=== PATIENT | female | born 1980 | race Caucasian/White ===

== ENCOUNTER → 2017-02-13 | Outpatient (CLI) | payer MEDICAID ==
[~2017-02-13] MED LIST: CHOL10003; CLIN300C11 PO; CYCL10TA45 PO; CYCL10TA9; CYCL10TA9 PO; ESTR1TAB24 PO; HYDR-3720; HYDR-3730 PO; HYDR-623 PO; HYDR118S10 PO; HYDR200T46 PO; IBP800T PO; LOPE2TAB17 PO; METR500T PO; MTP100TCR; MULT-974 PO; NCT14P TD; ONDA4TAB11 PO; ONDAN4ODT PO; PNT40TEC PO; RIZA10TA20; SCR1T1 PO; SENN1TAB76 PO; SUCR1TAB36 PO; SUMA50TA2 PO; TOPI50TA2 PO; TRAM50TA2 PO; VALA100033 PO
--- NOTE | 2017-02-13 09:56 | Diagnostic Imaging Report ---
PROCEDURE: US Gallbladder. TECHNIQUE: Multiple real-time grayscale images were obtained over the right upper quadrant in various projections. INDICATION: Epigastric pain. FINDINGS: The pancreas is largely obscured. The liver demonstrates no focal lesion. Hepatopetal flow in the portal vein is demonstrated. The CBD is 2 mm in caliber. The gallbladder demonstrates no stones or wall thickening. No pericholecystic fluid. The sonographic Greenwood sign is reportedly negative. The right kidney is 9.7 cm in length with no hydronephrosis or focal lesion. No fluid collection in the upper right abdomen is seen. IMPRESSION: No gallstones or evidence of cholecystitis. Dictated by: Dictated on workstation # [id number]
== END ==
LOC: RAD 09:03
PROVIDERS: ATTEND Nurse Practitioner Family
DX: R10.11 Right upper quadrant pain (principal)
CPT/HCPCS: 76705

== ENCOUNTER → 2017-02-16 | Outpatient (CLI) | payer MEDICAID ==
[~2017-02-16] MED LIST changes: +CATHETER FLUSH 10 ML SYR IV PRN
--- NOTE | 2017-02-16 13:09 | Diagnostic Imaging Report ---
EXAMINATION: HIDA with EF measurements Indication: Abdominal pain TECHNIQUE: After the intravenous administration of 5.4 mCi of Tc 99m Choletec, imaging over the abdomen was obtained. This was followed by administration of Ensure orally to stimulate intrinsic CCK secretion, followed by continued imaging with ejection fraction measured. FINDINGS: There is homogeneous uptake in the liver with prompt bile duct and gallbladder filling seen. Bowel activity is seen at 45 minutes. Based on further imaging and gallbladder area of interest activity measurements after the administration of Ensure, the gallbladder ejection fraction is estimated at 40.7%. IMPRESSION: 1. Normal hepatobiliary uptake and Gallbladder filling. 2. Borderline gallbladder ejection fraction. Correlate clinically. Dictated by: Dictated on workstation # [id number]
== END ==
LOC: CARD 09:42
PROVIDERS: ATTEND Nurse Practitioner Family
DX: R10.11 Right upper quadrant pain (principal)
CPT/HCPCS: 78227

== ENCOUNTER 2017-02-17 09:13 | Outpatient (CLI) | payer MEDICAID ==
[~2017-02-17] VITALS: Ht 160 cm; Wt 68.0 kg
[~2017-02-17 09:13] MED LIST changes: -CATHETER FLUSH 10 ML SYR IV PRN; -HYDR-3730 PO; -SUCR1TAB36 PO; -TRAM50TA2 PO
[2017-02-17] MEDS ORDERED: SUCR1TAB36 PO (12:20)
[2017-02-17] MEDS ORDERED: TRAM50TA2 PO (12:20)
== END 2017-02-17 12:31 ==
LOC: PREOP 09:13
PROVIDERS: ATTEND Surgery Pediatric Surgery
DX: Z01.818 Encounter for other preprocedural examination (principal); K82.8 Other specified diseases of gallbladder; K21.9 Gastro-esophageal reflux disease without esophagitis

== ENCOUNTER 2017-02-20 12:27 | Day surgery (SDC) | payer MEDICAID ==
[~2017-02-20] VITALS: Ht 160 cm; Wt 68.0 kg
[2017-02-20] VITALS (7 sets, daily range): BP systolic 105–112; BP diastolic 73–84
[~2017-02-20 12:27] MED LIST changes: +SUCR1TAB36 PO; +TRAM50TA2 PO
[2017-02-20] MEDS ORDERED: ceFAZolin 1 GM/NS 50 ML IVPB IV ONE ×2 (13:00)
[2017-02-20] MEDS ORDERED: FAMOTIDINE 20MG/2ML IV (PEPCID) IV ONE (13:00)
[2017-02-20] MEDS ORDERED: ONDANSETRON 4 MG/2 ML (SDV) Z0FRAN IV ONE (13:00)
[2017-02-20] MEDS ORDERED: CATHETER FLUSH 10 ML SYR IV PRN (13:00)
[2017-02-20] MEDS ORDERED: BUP/EPI 0.5% 1:200,000 (SENSORCAINE) 30 ML VIAL ONE (13:01)
[2017-02-20] MEDS: LACTATED RINGERS 1,000 ML IV PRN ×2 (13:24→15:26)
--- NOTE | 2017-02-20 13:49 | Progress Note-Pre Operative ---
Pre-Operative Progress Note H&P Reviewed The H&P was reviewed, patient examined and no changes noted. Date H&P Reviewed: February 20, 2017 Time H&P Reviewed: 13:49 Pre-Operative Diagnosis: Biliary Dyskinesia, Reflux VICKY PALMER APRN February 20, 2017 1:49 pm
[2017-02-20] MEDS ORDERED: MIDAZOLAM 2 MG/2 ML (VERSED) VIAL ONE (13:54)
[2017-02-20] MEDS ORDERED: SEVOFLURANE (ULTANE) 15 ML INHAL SOLN ONE (13:54)
[2017-02-20] MEDS ORDERED: proPOfol 200 MG/20 ML (DIPRIVAN) VIAL IV ONE (13:54)
[2017-02-20] MEDS ORDERED: LACTATED RINGERS 1,000 ML IV ONE ×2 (13:54→15:49)
[2017-02-20] MEDS ORDERED: ROCURONIUM 50 MG/5 ML (ZEMURON) VIAL IV ONE (13:54)
[2017-02-20] MEDS ORDERED: LIDOCAINE PF 2% 10 ML (XYLOCAINE) AMP ONE (13:54)
[2017-02-20] MEDS ORDERED: fentaNYL INJECTION 250 MCG/5 ML AMP ONE (13:54)
[2017-02-20] MEDS ORDERED: HYDROcodone/APAP 5 MG/325 MG (LORTAB) TAB PO ONE (14:00)
[2017-02-20] MEDS ORDERED: ACETAMINOPHEN 325 MG TABLET/CAPLET (TYLENOL) PO PRN (14:00)
[2017-02-20] MEDS ORDERED: morphine INJ 10 MG/ML 1ML (SYR OR VIAL) IVP PRN (14:00)
[2017-02-20] MEDS ORDERED: ONDANSETRON 4 MG/2 ML (SDV) Z0FRAN IVP PRN (14:00)
[2017-02-20] MEDS ORDERED: DEXAMETHASONE PF 10 MG/ML (DECADRON) VIAL ONE (14:01)
[2017-02-20] MEDS ORDERED: GLYCOPYRROLATE 0.2 MG/ML (ROBINUL) 2 ML VIAL ONE (15:49)
[2017-02-20] MEDS ORDERED: KETOROLAC 30 MG/ML VIAL ONE (15:49)
[2017-02-20] MEDS ORDERED: NEOSTIGMINE (BLOXIVERZ ) 1 MG/1ML 10 ML VIAL ONE (15:49)
--- NOTE | 2017-02-20 16:13 | Progress Note-Post Operative ---
Post-Operative Progess Note Surgeon (s)/Computer Systems Architect (s) Surgeon CHARLOTTE BLANCHARD MD Computer Systems Architect: vladislav haji BONDED STRUCTURES REPAIRER Pre-Operative Diagnosis Biliary Dyskinesia, Reflux Post-Operative Diagnosis symptomatic biliary dyskinesia, reflux esophagitis(class B), small HH(2.5cm), moderate gastritis. Procedure & Operative Findings Date of Procedure 02/20/17 Procedure Preformed/Findings EGD with bx. Laparoscopic cholecystectomy Anesthesia Type GET Estimated Blood Loss Estimated blood loss (mL): minimal Specimens/Packing Specimens Removed gallbladder, GE jxn, antrum. Packing: none CHARLOTTE BLANCHARD MD February 20, 2017 16:13
[2017-02-20] MEDS ORDERED: HYDR-3730 PO (16:15)
--- NOTE | 2017-02-20 16:16 | Discharge Inst-Surgical ---
D/C Lap Instructions-KIDTico New, Converted, or Re-Newed RX: RX on Chart Follow Up Appt in 2 weeks Activity as tolerated Regular Diet Symptoms to Report: Fever over 101 degree F, Nausea/Vomiting Infection Signs and Symptoms to report: Increased redness, Foul odor of wound, Increased drainage Bathing instructions: May shower Operative Area Clean/Dry; Keep incision clean/dry If any problems/questions: Contact your physician or go to Emergency Room CHARLOTTE BLANCHARD MD February 20, 2017 16:16
[2017-02-20] MEDS: morphine INJ 10 MG/ML 1ML (SYR OR VIAL) IVP PRN ×2 (16:27→16:35)
[2017-02-20] MEDS ORDERED: fentaNYL INJECTION 100 MCG/2 ML AMP IVP PRN (16:30)
[2017-02-20] MEDS ORDERED: HYDROmorphone (DILAUDID) 2 MG/ML VIAL IVP PRN (16:30)
[2017-02-20] MEDS: HYDROcodone/APAP 5 MG/325 MG (LORTAB) TAB PO PRN (23:09)
[2017-02-21] MEDS: HYDROcodone/APAP 5 MG/325 MG (LORTAB) TAB PO PRN ×2 (03:18→07:39)
[2017-02-21 04:00] VITALS: BP 103/59
--- NOTE | 2017-02-21 05:27 | OPERATIVE REPORT ---
DATE OF SERVICE: 02/20/2017 PREOPERATIVE DIAGNOSES: Symptomatic biliary dyskinesia, reflux, history of gastric ulcers. POSTOPERATIVE DIAGNOSES: Symptomatic biliary dyskinesia, reflux esophagitis class B, small hiatal hernia 2.5 cm in size, moderate gastritis. PROCEDURE: EGD with biopsy, laparoscopic cholecystectomy. SURGEON: Dr. Blanchard. STOVE INSTALLER: Alpesh Leavitt APRN. ANESTHESIA: General endotracheal. ESTIMATED BLOOD LOSS: Minimal. FINDINGS: Reflux esophagitis class B, small hiatal hernia 2.5 cm in size, moderate gastritis. There were no ulcers, polyps or any neoplasms identified. Mild chronic gallbladder wall inflammation. DISPOSITION: The patient tolerated the procedure well. INDICATIONS: The patient is a 36-year-old female who was referred over to us for abdominal pain and dysphagia. She states that she has had a pain in the right upper abdominal quadrant with radiation towards the back, usually after meals. She also has noticed increased symptoms of reflux. She reports that she has had epigastric crampy pain in the past and has undergone EGDs before in the past, with the last one done in 2012 where she was found to have gastric ulcers. An ultrasound was also performed which did not show any gallstones; however, she did have a HIDA scan which did show an ejection fraction of approximately 40%; however, after the administration of Kinevac analogue, she did have a severe reproduction of symptoms consistent with a symptomatic biliary dyskinesia. DESCRIPTION OF PROCEDURE: The patient was brought to the operating room, laid supine on the table. After adequate IV pain and sedative medications and general endotracheal intubation, the abdomen was prepped and draped in standard surgical fashion. Marcaine 0.5% with epinephrine was used to anesthetize the overlying skin in the left upper abdominal quadrant and a small transverse skin incision made using a #15 blade. A 0-silk suture was applied to the medial aspect of the incision for retraction and the Veress needle inserted with a low opening pressure of 0 mmHg. The abdomen was then insufflated to 15 mmHg pressure. The Veress needle was removed and a 5 mm Xcel trocar placed followed by a 5 mm 45-degree angle laparoscope visualizing the peritoneal cavity. A 4-quadrant abdominal exploration was performed. There was mild chronic gallbladder wall irritation. What was visualized of the liver, omentum, small bowel and stomach appeared normal. Under direct visualization, we then proceeded to place a supraumbilical 10-mm port after the skin and peritoneum were anesthetized using 0.5% Marcaine with epinephrine and a transverse skin incision made using a #15 blade. In a similar manner, a right upper abdominal quadrant 5 mm port was placed. The fundus of the gallbladder was then retracted anteriorly and superiorly and the patient was then placed in reverse Trendelenburg position as well as plane right side up, left side down. The hepatoduodenal ligament was then opened using blunt dissection as well as electrocautery on the hook instrument. The entire critical view of safety was identified including the triangle of Calot as well as the cystic duct and artery and the liver behind the proximal gallbladder. A timeout was then taken and the cystic duct and artery were then clipped proximally and distally and cut with EndoShears. The gallbladder was then dissected off of the liver bed using cautery on the hook instrument with visualization of good hemostasis as well as no leaking ducts of Luschka. The gallbladder was removed through the 10 mm port site using an EndoCatch bag. The 10-mm port site, fascia and peritoneum were then closed under direct visualization using a Joni-Mor device and a 0-Vicryl suture. The abdomen was desufflated and the remaining ports were removed. All skin incisions were closed using 4-0 Monocryl running subcuticular sutures. Wounds were then cleaned and covered with Dermabond. The patient tolerated this portion of the procedure well. She may proceed with all normal activities; however, refrain from heavy lifting and exertion for the next 2 weeks. We will have her follow up in the office to reevaluate her wounds. Under the same general endotracheal anesthesia, we then proceeded with the EGD portion. The mouthpiece was applied. The endoscope was placed in the mouth, visualizing the pharynx and hypopharyngeal region. The endotracheal tube was going through the vocal cords. The endoscope was then gently intubated at the esophageal opening and esophagus was insufflated. The endoscope was then advanced to the first, second and third portions of the esophagus. At the level of the GE junction, a reflux esophagitis class B was identified. There were no ulcers or strictures identified in this region. A biopsy was taken with forceps with visualization of good hemostasis. The endoscope was then easily advanced in the stomach and then endoscope retroflexed, visualizing a small hiatal hernia approximately 2.5 cm in size. A moderate gastritis was also noted towards the stomach antrum. There were no formal ulcers, polyps or any neoplasms identified. A biopsy was taken of the stomach antrum with forceps with visualization of good hemostasis. The endoscope was then advanced to the pylorus and the first and second portions of the duodenum, which appeared normal. The endoscope was then slowly withdrawn taking a second look and suctioning all residual air with no additional findings. The patient tolerated the procedure well. We will have her continue with medical management for peptic ulcer disease as well as reflux esophagitis and hiatal hernia with the necessary lifestyle and diet accommodation including small and more frequent meals, avoidance of eating at night as well as head elevation while laying supine. She also needs to avoid caffeinated beverages, spicy, greasy and acidic foods. We will also have her continue with Protonix 40 mg daily for the next 3 months. Job ID: [id number] DocumentID: [id number] Dictated Date: 02/20/2017 16:23:50 Rn Cvicu Date: 02/21/2017 05:02:14 Dictated By: CHARLOTTE BLANCHARD MD
[2017-02-21 08:00] VITALS: BP 131/58
== END 2017-02-21 09:55 | disposition home or self-care (01) ==
LOC: SDC 12:27 → 4TH 19:20 → SDC 02-21 09:55
PROVIDERS: ATTEND Surgery Pediatric Surgery
DX: K82.4 Cholesterolosis of gallbladder (principal); K21.0 Gastro-esophageal reflux disease with esophagitis; K44.9 Diaphragmatic hernia without obstruction or gangrene; K29.70 Gastritis, unspecified, without bleeding; Z11.2 Encounter for screening for other bacterial diseases; M32.9 Systemic lupus erythematosus, unspecified; M79.1 Myalgia; G40.909 Epilepsy, unspecified, not intractable, without status epilepticus; F17.210 Nicotine dependence, cigarettes, uncomplicated; Z79.899 Other long term (current) drug therapy
CPT/HCPCS: 87081; 88304; 88305; 94664

== ENCOUNTER 2017-06-14 18:31 | Emergency (ER) | payer MEDICAID ==
[~2017-06-14] VITALS: Ht 167.6 cm; Wt 77.1 kg
[~2017-06-14 18:31] MED LIST changes: +HYDR-3730 PO
[2017-06-14] MEDS ORDERED: LACTATED RINGERS 1,000 ML IV ONE (19:11)
[2017-06-14] MEDS ORDERED: ONDANSETRON 4 MG/2 ML (SDV) Z0FRAN IVP ONE ×2 (19:15→20:45)
[2017-06-14 19:16] LABS: BILIRUBIN,URINE NEGATIVE (NEGATIVE); KETONES,URINE NEGATIVE (NEGATIVE); LEUKOCYTE ESTERASE ,URINE 2+ (NEGATIVE); NITRITE,URINE NEGATIVE (NEGATIVE); PH,URINE 7 (5-9); PROTEIN,URINE NEGATIVE (NEGATIVE); UROBILINOGEN,URINE NORMAL (NORMAL)
[2017-06-14 19:29] LABS: BASOPHILS # (AUTO) 0.1 10^3/uL (0.0-0.1); BASOPHILS % (AUTO) 1 % (0-10); EOSINOPHILS # (AUTO) 0.2 10^3/uL (0.0-0.3); EOSINOPHILS % (AUTO) 3 % (0-10); LYMPHOCYTES # (AUTO) 3.1 X 10^3 (1.0-4.0); LYMPHOCYTES % (AUTO) 36 % (12-44); MEAN CORPUSCULAR HEMOGLOBIN 30 PG (25-34); MEAN CORPUSCULAR HGB CONC 33 G/DL (32-36); MEAN CORPUSCULAR VOLUME 90 FL (80-99); MEAN PLATELET VOLUME 11.6 FL (7.4-10.4); MONOCYTES # (AUTO) 0.6 X 10^3 (0.0-1.0); MONOCYTES % (AUTO) 8 % (0-12); NEUTROPHILS # (AUTO) 4.6 X 10^3 (1.8-7.8); NEUTROPHILS % (AUTO) 53 % (42-75); PLATELET COUNT 209 10^3/uL (130-400); RED CELL DISTRIBUTION WIDTH 12.7 % (10.0-14.5); WHITE BLOOD COUNT 8.6 10^3/uL (4.3-11.0)
[2017-06-14 19:49] LABS: ALANINE AMINOTRANSFERASE 15 U/L (0-55); ALBUMIN 4.1 GM/DL (3.2-4.5); AMYLASE 97 U/L (25-125); ANION GAP 13 MMOL/L (5-14); ASPARTATE AMINO TRANSFERASE 18 U/L (5-34); BILIRUBIN,TOTAL 0.2 MG/DL (0.1-1.0); BLOOD UREA NITROGEN 18 MG/DL (7-18); BUN/CREATININE RATIO 22; CARBON DIOXIDE 24 MMOL/L (21-32); CHLORIDE 108 MMOL/L (98-107); CREATININE SERUM 0.81 MG/DL (0.60-1.30); GFR ESTIMATED > 60; GLUCOSE 109 MG/DL (70-105); LIPASE 34 U/L (8-78); POTASSIUM 3.4 MMOL/L (3.6-5.0); SODIUM 145 MMOL/L (135-145); TOTAL PROTEIN 6.9 GM/DL (6.4-8.2)
--- NOTE | 2017-06-14 19:51 | Diagnostic Imaging Report ---
PROCEDURE: CT urinary tract, rule out kidney stone. TECHNIQUE: Multiple contiguous axial images were obtained through the abdomen and pelvis without the use of intravenous contrast. INDICATION: Abdominal pain with nausea and emesis. COMPARISON is made to a study of 04/24/2013. FINDINGS: Unenhanced images of the liver and spleen reveal no focal abnormality. There is no biliary ductal dilatation. The gallbladder is surgically absent. No pancreatic or adrenal gland abnormality is identified. Evaluation of the kidneys is limited without intravenous contrast, however, there is no evidence of mass, hydronephrosis or stone. There is no evidence of localized inflammation in the abdomen or pelvis. The uterus and appendix are not visualized compatible with previous surgery. There is no evidence of free fluid or abscess. IMPRESSION: Stable postoperative findings without acute abnormality or adverse change detected. Dictated by: Dictated on workstation # [id number]
--- NOTE | 2017-06-14 20:08 | Diagnostic Imaging Report ---
INDICATION: Abdominal pain with nausea and bloating. EXAM: A single view of the chest is obtained with AP and lateral views of the abdomen. FINDINGS: The lungs are clear, bilaterally. There is mild to moderate amount of stool throughout the colon. No free intraperitoneal gas or pneumatosis is identified. There are surgical clips in the right upper quadrant of the abdomen and bilaterally in the pelvis. IMPRESSION: Mild to moderate amount of stool in the colon without acute abnormality identified. Dictated by: Dictated on workstation # [id number]
[2017-06-14] MEDS ORDERED: BISACODYL 10 MG SUPP (DULCOLAX) PR ONE ×2 (20:45→22:00)
[2017-06-14] MEDS ORDERED: DICYCLOMINE 10 MG/ML (BENTYL) 2 ML AMP IM ONE (20:45)
[2017-06-14] MEDS ORDERED: HYOSCYAMINE 0.125 MG (LEVSIN) TAB PO ONE (20:45)
[2017-06-14] MEDS ORDERED: RX-HYOSCYAMINE 0.125 MG SL (LEVSIN) PPK#6 SL STA (23:09)
[2017-06-14] MEDS ORDERED: RX-ONDANSETRON 4 MG ODT (ZOFRAN) PPK #4 PO STA (23:09)
[2017-06-14] MEDS ORDERED: RX-DICYCLOMINE 10 MG (BENTYL) CAP PPK#4 PO STA (23:09)
--- NOTE | 2017-06-14 23:15 | ED GI ---
General Chief Complaint: Abdominal/GI Problems Stated Complaint: ABDOMINAL PAIN,CONSTIPATION,VOMITING FECES Nursing Triage Note: Patient advises abdominal pain began monday evening and has become progressively worse. She advises that she has not had a bowel movement since and has a hx. of bowel obstructions. Sepsis Screen: No Definite Risk Source of Information: Patient Exam Limitations: No Limitations History of Present Illness Time Seen By Provider: 19:12 Initial Comments PT ARRIVES VIA POV FROM HOME C/O CONSTIPATION--LAST BM WAS Monday06/09/17 BEGAN HAVING GENERALIZED ABDOMINAL PAIN/CRAMPING ON Monday06/11/17 PT HAS HAD NAUSEA AND VOMITING SINCE MONDAY WELL, STATES SHE CANNOT EAT OR DRINK ANYTHING SINCE THEN IT CAUSES HER TO HAVE NAUSEA/VOMITING STATES SHE THINKS SHE IS VOMITING FECES NO FEVER NO PROBLEMS URINATING PT HAS HISTORY OF IBS AND CONSTIPATION, AND HAS ZOFRAN WELL COLACE, BUT HAS NOT TAKEN ANY, AND DOES NOT TAKE ANYTHING FOR CONSTIPATION ON A DAILY BASIS HAS NOT TRIED SUPPOSITORIES OR ENEMAS EVER. HAS NOT SOUGHT CARE UNTIL TODAY SYMPTOMS NO DIFFERENT TODAY PCP: DR. SMITH Allergies and Home Medications Allergies Coded Allergies: Iodinated Contrast- Oral and IV Dye (Verified Allergy, Severe, ANAPHYLAXIS , 06/14/17) codeine (Unverified Allergy, Unknown, 06/14/17) latex (Verified Allergy, Unknown, 06/14/17) meperidine HCl (Verified Allergy, Unknown, 06/14/17) Home Medications Dicyclomine HCl 10 Mg Capsule, 10-20 MG PO Q6H PRN for ABDOMINAL PAIN, #15 Prescribed by: AVELINO MARQUES on 06/14/17 2316 Hydrocodone/Acetaminophen 1 Each Tablet, 1-2 EACH PO Q4H, #35 Prescribed by: CHARLOTET BLANCHARD on 02/20/17 1615 Hyoscyamine Sulfate 0.125 Mg Tab.subl, 1-2 TAB SL Q4H, #15 Prescribed by: AVELINO MARQUES on 06/14/17 2316 Ondansetron 4 Mg Tab.rapdis, 4 MG PO Q4H, #10 Prescribed by: AVELINO MARQUES on 06/14/17 2316 Pantoprazole Sodium 40 Mg Tablet.dr, 40 MG PO BID, (Reported) Sucralfate 1 Gm Tablet, 1 GM PO ACHS, (Reported) Tramadol HCl 50 Mg Tablet, 50 MG PO Q6H PRN for PAIN-MILD, (Reported) Review of Systems Constitutional: no symptoms reported, No chills, No diaphoresis, No dizziness, No fever Respiratory: No Symptoms Reported Gastrointestinal: See HPI, Abdominal Pain, Constipated, Nausea, Poor Appetite, Poor Fluid Intake, Denies Rectal Bleeding, Vomiting Genitourinary: No Symptoms Reported Musculoskeletal: no symptoms reported Skin: no symptoms reported Psychiatric/Neurological: No Symptoms Reported Endocrine: No Symptoms Reported Hematologic/Lymphatic: No Symptoms Reported Past Ilhlezo-Rciydu-Kgdkhp Hx Patient Social History Alcohol Use: Rarely Uses Recreational Drug Use: No Smoking Status: Current Everyday Smoker (1/2 PPD) Type Used: Cigarettes Recent Foreign Travel: No Contact w/Someone Who Travel: No Recent Infectious Disease Expo: No Recent Hopitalizations: No Physical Abuse: No Sexual Abuse: No Immunizations Up To Date Tetanus Booster (TDap): More than 5yrs Date of Pneumonia Vaccine: Nov 16, 2010 Date of Influenza Vaccine: Oct 19, 2013 Seasonal Allergies Seasonal Allergies: Yes Surgeries History of Surgeries: Yes (EGD X 3; LAPAROSCOPIES WITH ABLATION OF ENDOMETRIOSIS X 3; HYST/BSO) Surgeries: Appendectomy, Gallbladder, Hysterectomy Respiratory History of Respiratory Disorde: Yes Respiratory Disorders: Pneumonia, Chronic Bronchitis Cardiovascular History of Cardiac Disorders: Yes (PT STATES SHE HAD VA AT AGE 28, NO CARDIAC CATH/STRESS TEST AND LEFT AMA AND NEVER FOLLOWED UP WITH ANYONE. 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 Genitourinary History of Genitourinary Disor: Yes Genitourinary Disorders: Kidney Stones, UTI-Chronic Gastrointestinal History of Gastrointestinal Di: Yes Gastrointestinal Disorders: Gastroesophageal Reflux, Chronic Constipation, Chronic Diarrhea, Ulcer, Gall Bladder Disease, Irritable Bowel Musculoskeletal History of Musculoskeletal Dis: Yes Musculoskeletal Disorders: Arthritis, Fibromyalgia, Chronic Back Pain Endocrine History of Endocrine Disorders: Yes Endocrine Disorders: Lupus HEENT History of HEENT Disorders: No Loss of Vision: Denies Hearing Impairment: Denies Cancer History of Cancer: No Psychosocial History of Psychiatric Problem: Yes Behavioral Health Disorders: Depression Suicide Risk Score: 0 Integumentary History of Skin or Integumenta: No Blood Transfusions History of Blood Disorders: No Family Medical History Significant Family History: Heart Disease Family Medial History: Alcoholism 03 MOTHER 09 BROTHER Chest pain 03 FATHER Congestive heart failure 03 FATHER Family history: Allergy 09 BROTHER boys daughter Family history: Arthritis 09 SISTER boys Family history: Asthma 03 MOTHER 09 BROTHER 09 BROTHER boys Family history: Diabetes mellitus 03 MOTHER Family history: Gastrointestinal disease 03 FATHER Family history: Hypertension 03 FATHER Family history: Thyroid disorder 03 MOTHER Headache 03 MOTHER boys daughter Hearing loss daughter History of - anemia daughter History of drug abuse 03 FATHER 09 BROTHER 09 BROTHER Kidney disease 03 FATHER No Family History of: Abdominal aortic aneurysm Hancock's disease Aphasia Cancer Cancer of colon Cataract Congenital heart disease Cystic fibrosis Dementia Dysphagia Family history: Alzheimer's disease Family history: Breast disease Family history: Cardiovascular disease Family history: Coronary thrombosis Family history: Glaucoma Family history: Osteoporosis Heart disease Hereditary disease History of - disorder History of - respiratory disease Human immunodeficiency virus (HIV) seropositivity Hypercholesterolemia Infertile Malignant neoplasm of lung Myocardial infarction Parkinson's disease Prostate cancer Psychotic disorder Seizure disorder Stroke Tuberculosis Visual impairment Physical Exam Vital Signs VS - Last 72 Hours, by Label 06/14/17 06/14/17 19:32 23:33 Temp 98.7 Pulse 88 87 Resp 14 16 B/P (MAP) 103/64 Pulse Ox 98 98 O2 Delivery Room Air Capillary Refill : Less Than 3 Seconds General Appearance: WD/WN, no apparent distress HEENT: PERRL/EOMI, normal ENT inspection, other (ORAL MUCOSA MOIST) Neck: normal inspection Respiratory: normal breath sounds, no respiratory distress Cardiovascular: regular rate, rhythm Gastrointestinal: soft, no organomegaly, no pulsatile mass, abnormal bowel sounds (HYPERACTIVE), No distended, No guarding, No rebound, tenderness ( DIFFUSE TENDERNESS, WORSE IN EPIGASTRIC, LUQ AND LEFT MID AND LOWER ABDOMEN), No hernia, No mass Extremities: normal inspection, normal capillary refill Back: no CVA tenderness 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, no motor/sensory deficits, alert, oriented x 3 Skin: normal color, warm/dry Progress/Results/Core Measures Results/Orders Lab Results Laboratory Tests Test 06/14/17 19:12 06/14/17 19:23 Range/Units Urine Color YELLOW Urine Clarity CLEAR Urine pH 7 5-9 Urine Specific Mobile 1.015 L 1.016-1.022 Urine Protein NEGATIVE NEGATIVE Urine Glucose (UA) NEGATIVE NEGATIVE Urine Ketones NEGATIVE NEGATIVE Urine Nitrite NEGATIVE NEGATIVE Urine Bilirubin NEGATIVE NEGATIVE Urine Urobilinogen NORMAL NORMAL MG/DL Urine Leukocyte Esterase 2+ H NEGATIVE Urine RBC (Auto) NEGATIVE NEGATIVE Urine RBC NONE /HPF Urine WBC 2-5 /HPF Urine Squamous Epithelial Cells 5-10 /HPF Urine Crystals NONE /LPF Urine Bacteria NEGATIVE /HPF Urine Casts NONE /LPF Urine Mucus NEGATIVE /LPF Urine Culture Indicated NO White Blood Count 8.6 4.3-11.0 10^3/uL Red Blood Count 4.80 4.35-5.85 10^6/uL Hemoglobin 14.2 11.5-16.0 G/DL Hematocrit 43 35-52 % Mean Corpuscular Volume 90 80-99 FL Mean Corpuscular Hemoglobin 30 25-34 PG Mean Corpuscular Hemoglobin Concent 33 32-36 G/DL Red Cell Distribution Width 12.7 10.0-14.5 % Platelet Count 209 130-400 10^3/uL Mean Platelet Volume 11.6 H 7.4-10.4 FL Neutrophils (%) (Auto) 53 42-75 % Lymphocytes (%) (Auto) 36 12-44 % Monocytes (%) (Auto) 8 0-12 % Eosinophils (%) (Auto) 3 0-10 % Basophils (%) (Auto) 1 0-10 % Neutrophils # (Auto) 4.6 1.8-7.8 X 10^3 Lymphocytes # (Auto) 3.1 1.0-4.0 X 10^3 Monocytes # (Auto) 0.6 0.0-1.0 X 10^3 Eosinophils # (Auto) 0.2 0.0-0.3 10^3/uL Basophils # (Auto) 0.1 0.0-0.1 10^3/uL Sodium Level 145 135-145 MMOL/L Potassium Level 3.4 L 3.6-5.0 MMOL/L Chloride Level 108 H 98-107 MMOL/L Carbon Dioxide Level 24 21-32 MMOL/L Anion Gap 13 5-14 MMOL/L Blood Urea Nitrogen 18 7-18 MG/DL Creatinine 0.81 0.60-1.30 MG/DL Estimat Glomerular Filtration Rate > 60 BUN/Creatinine Ratio 22 Glucose Level 109 H 70-105 MG/DL Calcium Level 9.0 8.5-10.1 MG/DL Total Bilirubin 0.2 0.1-1.0 MG/DL Aspartate Amino Transf (AST/SGOT) 18 5-34 U/L Alanine Aminotransferase (ALT/SGPT) 15 0-55 U/L Alkaline Phosphatase 67 40-136 U/L Total Protein 6.9 6.4-8.2 GM/DL Albumin 4.1 3.2-4.5 GM/DL Amylase Level 97 25-125 U/L Lipase 34 8-78 U/L My Orders Orders - AVELINO MARQUES DO Saline Lock/Iv-Start (06/14/17 19:11) Urine Bedside (06/14/17 19:11) Amylase (06/14/17 19:11) Cbc With Automated Diff (06/14/17 19:11) Comprehensive Metabolic Panel (06/14/17 19:11) Lipase (06/14/17 19:11) Ua Culture If Indicated (06/14/17 19:11) Ondansetron Injection (Zofran Injectio (06/14/17 19:15) Saline Lock/Iv-Start (06/14/17 19:11) Lactated Ringers (Lr 1000 Ml Iv Solution (06/14/17 19:11) Ct Abd/Pelvis Wo(Kidney Stone) (06/14/17 19:28) Acute Abd Series (06/14/17 19:28) Ondansetron Injection (Zofran Injectio (06/14/17 20:45) Dicyclomine Injection (Bentyl Injection) (06/14/17 20:45) Hyoscyamine Sl Tablet (Levsin Sl Tablet) (06/14/17 20:45) Bisacodyl Suppository (Dulcolax Supposit (06/14/17 20:45) Bisacodyl Suppository (Dulcolax Supposit (06/14/17 22:00) Rx-Dicyclomine Capsule (Rx-Bentyl Capsul (06/14/17 23:09) Rx-Ondansetron Po (Rx-Zofran Po) (06/14/17 23:09) Rx-Hyoscyamine Tab (Rx-Levsin Sl) (06/14/17 23:09) Medications Given in ED Current Medications Medications Dose Ordered Sig/Amber Route Start Time Stop Time Status Last Admin Dose Admin Bisacodyl 10 mg ONCE ONCE NV 06/14/17 20:45 06/14/17 20:46 DC 06/14/17 21:11 10 MG Bisacodyl 10 mg ONCE ONCE NV 06/14/17 22:00 06/14/17 22:01 DC 06/14/17 22:20 10 MG Dicyclomine HCl 20 mg ONCE ONCE IM 06/14/17 20:45 06/14/17 20:46 DC 06/14/17 21:10 20 MG Hyoscyamine Sulfate 0.25 mg ONCE ONCE PO 06/14/17 20:45 06/14/17 20:46 DC 06/14/17 21:11 0.25 MG Lactated Ringer's 1,000 ml @ 0 mls/hr Q0M ONCE IV 06/14/17 19:11 06/14/17 19:12 DC 06/14/17 19:16 0 MLS/HR Ondansetron HCl 4 mg ONCE ONCE IVP 06/14/17 19:15 06/14/17 19:16 DC 06/14/17 19:16 4 MG Ondansetron HCl 4 mg ONCE ONCE IVP 06/14/17 20:45 06/14/17 20:46 DC 06/14/17 21:11 4 MG Vital Signs/I&O Vital Sign - Last 12Hours 06/14/17 06/14/17 19:32 23:33 Temp 98.7 Pulse 88 87 Resp 14 16 B/P (MAP) 103/64 Pulse Ox 98 98 O2 Delivery Room Air Blood Pressure Mean: 77 Progress Note : Progress Note NAUSEA RESOLVED AND CRAMPING/PAIN RESOLVED WITH MEDICATIONS PT TOLERATING LIQUIDS PRIOR TO DISMISSAL NO VOMITING DURING ER STAY NO BM DURING ER STAY Diagnostic Imaging Comments ACUTE ABDOMEN XRAYS--MODERATE AMOUNT OF STOOL IN COLON, NO ACUTE PROCESS CT ABDOMEN/PELVIS--NO ACUTE PROCESS PER RADIOLOGIST REPORTS @ 2019 Reviewed: Reviewed by Me Departure Impression Impression: Primary Impression: Constipation Disposition: HOME, SELF-CARE Condition: Improved Departure-Patient Inst. Referrals: HADLEY SMITH MD (PCP/Family) Primary Care Physician Patient Instructions: Constipation, Adult (DC) Add. Discharge Instructions: DULCOLAX SUPPOSITORIES EVERY 4 HOURS FOR BM FLEET'S ENEMAS UNTIL CLEAR MIRALAX--7-8 CAPFULS IN 20 OZ GATORADE--DRINK ALL IN 30 MINUTES IF YOU HAVE NOT HAD BM IN 12 HOURS, REPEAT THE ABOVE DRINK ONLY WATER AND GATORADE UNTIL YOU HAVE A BM, NO FOOD UNTIL YOU HAVE HAD A BM AFTER YOU HAVE A BM, BEGIN TAKING MIRALAX DAILY FOLLOW UP WITH YOUR DR ON MONDAY IF NO IMPROVEMENT All discharge instructions reviewed with patient and/or family. Voiced understanding. Scripts Ondansetron (Zofran Odt) 4 Mg Tab.rapdis 4 MG PO Q4H for Nausea/Vomiting, #10 TAB Prov: AVELINO MARQUES DO 06/14/17 Hyoscyamine Sulfate (Levsin-Sl) 0.125 Mg Tab.subl 1-2 TAB SL Q4H for Abdominal Pain, #15 TAB Prov: AVELINO MARQUES DO 06/14/17 Dicyclomine HCl (Bentyl) 10 Mg Capsule 10-20 MG PO Q6H Y for ABDOMINAL PAIN, #15 CAP Prov: AVELINO MARQUES DO 06/14/17 AVELINO MARQUES DO Jun 14, 2017 23:15
[2017-06-14] MEDS ORDERED: ONDA4TAB8 PO (23:16)
[2017-06-14] MEDS ORDERED: HYOS0.1283 SL (23:16)
[2017-06-14] MEDS ORDERED: DICY10CA59 PO (23:16)
[2017-06-14 23:33] VITALS: BP 123/55
== END 2017-06-14 23:35 | disposition home or self-care (01) ==
LOC: EDUNIT# 18:31 → ER 18:34
DX: K59.00 Constipation, unspecified (principal); G40.909 Epilepsy, unspecified, not intractable, without status epilepticus; K21.9 Gastro-esophageal reflux disease without esophagitis; M19.90 Unspecified osteoarthritis, unspecified site; F32.9 Major depressive disorder, single episode, unspecified; F17.210 Nicotine dependence, cigarettes, uncomplicated; Z82.49 Family history of ischemic heart disease and other diseases of the circulatory system; Z90.49 Acquired absence of other specified parts of digestive tract; Z90.710 Acquired absence of both cervix and uterus; Z87.09 Personal history of other diseases of the respiratory system; Z87.442 Personal history of urinary calculi; Z87.440 Personal history of urinary (tract) infections; Z87.19 Personal history of other diseases of the digestive system
CPT/HCPCS: 36415; 74022; 74176; 80053; 81000; 82150; 83690; 85025; 96361; 96372; 96374; 96376

== ENCOUNTER 2018-07-12 08:16 | Outpatient (RCR) | payer SELFPAY ==
[~2018-07-12 08:16] MED LIST changes: +DICY10CA59 PO; +HYOS0.1283 SL; +ONDA4TAB8 PO
== END 2018-07-15 | disposition home or self-care (01) ==
LOC: CARD 08:16
PROVIDERS: ATTEND Internal Medicine Cardiovascular Disease
DX: R00.2 Palpitations (principal)
CPT/HCPCS: 93225; 93226

== ENCOUNTER → 2018-08-01 | Outpatient (CLI) | payer MEDICAID, OTHER | LOC: CARD 14:07 | PROVIDERS: ATTEND Internal Medicine Cardiovascular Disease | DX: R00.2 Palpitations (principal); I08.1 Rheumatic disorders of both mitral and tricuspid valves | CPT/HCPCS: 93306 ==

== ENCOUNTER 2018-11-03 01:38 | Emergency (ER) | payer SELFPAY, OTHER | END 2018-11-03 05:47 | disposition home or self-care (01) | LOC: ER 01:38 ==

== ENCOUNTER 2019-06-17 16:00 | Emergency (ER) | payer SELFPAY ==
[~2019-06-17] VITALS: Ht 154.9 cm; Wt 74.4 kg
[2019-06-17] MEDS ORDERED: FAMOTIDINE 20MG/2ML IV (PEPCID) IV STA (16:09)
[2019-06-17] MEDS ORDERED: HYDROcodone/APAP 5 MG/325 MG (LORTAB) TAB PO ONE (16:45)
[2019-06-17 16:54] LABS: BACTERIA,URINE NEGATIVE /HPF; BILIRUBIN,URINE NEGATIVE (NEGATIVE); CLARITY,URINE CLEAR; COLOR,URINE YELLOW; GLUCOSE, URINE (UA) NEGATIVE (NEGATIVE); KETONES,URINE NEGATIVE (NEGATIVE); LEUKOCYTE ESTERASE ,URINE 1+ (NEGATIVE); NITRITE,URINE NEGATIVE (NEGATIVE); PH,URINE 6 (5-9); PROTEIN,URINE 1+ (NEGATIVE); RBC,URINE RARE /HPF; UROBILINOGEN,URINE NORMAL (NORMAL); WBC,URINE 0-2 /HPF
[2019-06-17 16:55] LABS: BASOPHILS % (AUTO) 1 % (0-10); EOSINOPHILS # (AUTO) 0.3 10^3/uL (0.0-0.3); EOSINOPHILS % (AUTO) 3 % (0-10); HEMATOCRIT 42 % (35-52); HEMOGLOBIN 14.1 G/DL (11.5-16.0); LYMPHOCYTES # (AUTO) 3.2 X 10^3 (1.0-4.0); LYMPHOCYTES % (AUTO) 36 % (12-44); MEAN CORPUSCULAR HEMOGLOBIN 30 PG (25-34); MEAN CORPUSCULAR HGB CONC 34 G/DL (32-36); MEAN CORPUSCULAR VOLUME 88 FL (80-99); MEAN PLATELET VOLUME 11.2 FL (7.4-10.4); MONOCYTES # (AUTO) 0.6 X 10^3 (0.0-1.0); MONOCYTES % (AUTO) 7 % (0-12); NEUTROPHILS # (AUTO) 4.6 X 10^3 (1.8-7.8); NEUTROPHILS % (AUTO) 53 % (42-75); PLATELET COUNT 234 10^3/uL (130-400); RED CELL DISTRIBUTION WIDTH 12.8 % (10.0-14.5); WHITE BLOOD COUNT 8.8 10^3/uL (4.3-11.0)
--- NOTE | 2019-06-17 17:14 | ED Back Pain ---
General Chief Complaint: Back Problems Stated Complaint: BACK PAIN Nursing Triage Note: AMB TO ROOM C/O BACK PAIN FOR SEVERL MONTHS . OTC MEDS NOT HELPING. Nursing Sepsis Screen: No Definite Risk Source of Information: Patient Exam Limitations: No Limitations History of Present Illness Date Seen by Provider: Jun 17, 2019 Time Seen by Provider: 17:12 Initial Comments Midline low back pain that radiates down the right leg intermittently for about a month, getting progressively worse. History of fibromyalgia and lupus. She's been off of her steroids for about a month. No fevers or chills. No preceding trauma. No history of IV drug use. No incontinence. No loss of sensation and genitals. No history of cancer. Pain radiates from the right buttock down the right leg terminating at the knee. Location: Lumbar Spine Timing/Duration: Other (one month) Severity: Moderate Associated Symptoms: denies symptoms Allergies and Home Medications Allergies Coded Allergies: Iodinated Contrast- Oral and IV Dye (Verified Allergy, Severe, ANAPHYLAXIS, 06/14/17) codeine (Unverified Allergy, Unknown, 06/14/17) latex (Verified Allergy, Unknown, 06/14/17) meperidine HCl (Verified Allergy, Unknown, 06/14/17) Home Medications Dicyclomine HCl 10 Mg Capsule, 10-20 MG PO Q6H PRN for ABDOMINAL PAIN Prescribed by: AVELINO MARQUES on 06/14/17 231 Hydrocodone/Acetaminophen 1 Each Tablet, 1-2 EACH PO Q4H Prescribed by: CHARLOTTE BLANCHARD on 02/20/17 1615 Hyoscyamine Sulfate 0.125 Mg Tab.subl, 1-2 TAB SL Q4H Prescribed by: AVELINO MARQUES on 06/14/17 231 Ondansetron 4 Mg Tab.rapdis, 4 MG PO Q4H Prescribed by: AVELINO MARQUES on 06/14/17 231 Pantoprazole Sodium 40 Mg Tablet.dr, 40 MG PO BID, (Reported) Sucralfate 1 Gm Tablet, 1 GM PO ACHS, (Reported) Tramadol HCl 50 Mg Tablet, 50 MG PO Q6H PRN for PAIN-MILD, (Reported) Patient Home Medication List Home Medication List Reviewed: Yes Review of Systems Constitutional: see HPI EENTM: see HPI Respiratory: no symptoms reported Genitourinary: no symptoms reported Musculoskeletal: see HPI, back pain Skin: no symptoms reported Psychiatric/Neurological: No Symptoms Reported Past Wukcrer-Nzpghq-Kpbgsd Hx Patient Social History Alcohol Use: Denies Use Recreational Drug Use: No Smoking Status: Current Everyday Smoker Type Used: Cigarettes 2nd Hand Smoke Exposure: Yes Recent Foreign Travel: No Contact w/Someone Who Travel: No Recent Infectious Disease Expo: No Recent Hopitalizations: No Immunizations Up To Date Tetanus Booster (TDap): More than 5yrs Date of Pneumonia Vaccine: Nov 16, 2010 Date of Influenza Vaccine: Oct 19, 2013 Seasonal Allergies Seasonal Allergies: Yes Past Medical History Surgeries: Yes (EGD X 3; LAPAROSCOPIES WITH ABLATION OF ENDOMETRIOSIS X 3; HYST/BSO) Appendectomy, Gallbladder, Hysterectomy Respiratory: Yes Pneumonia, Chronic Bronchitis Cardiac: Yes Heart Murmur, Hypertension, Rheumatic Fever Neurological: Yes Seizure Disorder Reproductive Disorders: Yes (CERVICAL DYSPLASIA; ENDOMETRIOSIS) Female Reproductive Disorders: 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, 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 Sexually Transmitted Disease: No HIV/AIDS: No Genitourinary: Yes Kidney Stones, UTI-Chronic Gastrointestinal: Yes Gastroesophageal Reflux, Chronic Constipation, Chronic Diarrhea, Ulcer, Gall Bladder Disease, Irritable Bowel Musculoskeletal: Yes Arthritis, Fibromyalgia, Chronic Back Pain Endocrine: Yes Lupus HEENT: No Loss of Vision: Denies Hearing Impairment: Denies Cancer: No Psychosocial: Yes Depression Integumentary: No Blood Disorders: No Family Medical History Alcoholism 03 MOTHER 09 BROTHER Chest pain 03 FATHER Congestive heart failure 03 FATHER Family history: Allergy 09 BROTHER boys daughter Family history: Arthritis 09 SISTER boys Family history: Asthma 03 MOTHER 09 BROTHER 09 BROTHER boys Family history: Diabetes mellitus 03 MOTHER Family history: Gastrointestinal disease 03 FATHER Family history: Hypertension 03 FATHER Family history: Thyroid disorder 03 MOTHER Headache 03 MOTHER boys daughter Hearing loss daughter History of - anemia daughter History of drug abuse 03 FATHER 09 BROTHER 09 BROTHER Kidney disease 03 FATHER No Family History of: Abdominal aortic aneurysm [place]'s disease Aphasia Cancer Cancer of colon Cataract Congenital heart disease Cystic fibrosis Dementia Dysphagia Family history: Alzheimer's disease Family history: Breast disease Family history: Cardiovascular disease Family history: Coronary thrombosis Family history: Glaucoma Family history: Osteoporosis Heart disease Hereditary disease History of - disorder History of - respiratory disease Human immunodeficiency virus (HIV) seropositivity Hypercholesterolemia Infertile Malignant neoplasm of lung Myocardial infarction Parkinson's disease Prostate cancer Psychotic disorder Seizure disorder Stroke Tuberculosis Visual impairment Heart Disease Physical Exam Vital Signs Vital Signs - First Documented 06/17/19 16:04 Temp 97.9 Pulse 119 Resp 18 B/P (MAP) 140/96 (111) Pulse Ox 98 Capillary Refill : Less Than 3 Seconds Height, Weight, BMI Height: 5'1.00" Weight: 164lbs. 0.0oz. 74.118151tm; 26.6 BMI Method:Actual General Appearance: No Apparent Distress, WD/WN HEENT: TMs Normal Neck: Full Range of Motion, Normal Inspection Respiratory: No Accessory Muscle Use, No Respiratory Distress Gastrointestinal: Non Tender, Soft Back: Normal Inspection Neurologic/Psychiatric: Alert, Oriented x3 Skin: Normal Color, Warm/Dry Progress/Results/Core Measures Results/Orders Lab Results Laboratory Tests Test 06/17/19 16:39 06/17/19 16:50 Range/Units Urine Color YELLOW Urine Clarity CLEAR Urine pH 6 5-9 Urine Specific [place] 1.025 H 1.016-1.022 Urine Protein 1+ H NEGATIVE Urine Glucose (UA) NEGATIVE NEGATIVE Urine Ketones NEGATIVE NEGATIVE Urine Nitrite NEGATIVE NEGATIVE Urine Bilirubin NEGATIVE NEGATIVE Urine Urobilinogen NORMAL NORMAL MG/DL Urine Leukocyte Esterase 1+ H NEGATIVE Urine RBC (Auto) NEGATIVE NEGATIVE Urine RBC RARE /HPF Urine WBC 0-2 /HPF Urine Squamous Epithelial Cells 2-5 /HPF Urine Crystals NONE /LPF Urine Bacteria NEGATIVE /HPF Urine Casts NONE /LPF Urine Mucus SMALL H /LPF Urine Culture Indicated NO White Blood Count 8.8 4.3-11.0 10^3/uL Red Blood Count 4.74 4.35-5.85 10^6/uL Hemoglobin 14.1 11.5-16.0 G/DL Hematocrit 42 35-52 % Mean Corpuscular Volume 88 80-99 FL Mean Corpuscular Hemoglobin 30 25-34 PG Mean Corpuscular Hemoglobin Concent 34 32-36 G/DL Red Cell Distribution Width 12.8 10.0-14.5 % Platelet Count 234 130-400 10^3/uL Mean Platelet Volume 11.2 H 7.4-10.4 FL Neutrophils (%) (Auto) 53 42-75 % Lymphocytes (%) (Auto) 36 12-44 % Monocytes (%) (Auto) 7 0-12 % Eosinophils (%) (Auto) 3 0-10 % Basophils (%) (Auto) 1 0-10 % Neutrophils # (Auto) 4.6 1.8-7.8 X 10^3 Lymphocytes # (Auto) 3.2 1.0-4.0 X 10^3 Monocytes # (Auto) 0.6 0.0-1.0 X 10^3 Eosinophils # (Auto) 0.3 0.0-0.3 10^3/uL Basophils # (Auto) 0.0 0.0-0.1 10^3/uL Sodium Level 145 135-145 MMOL/L Potassium Level 3.5 L 3.6-5.0 MMOL/L Chloride Level 110 H 98-107 MMOL/L Carbon Dioxide Level 25 21-32 MMOL/L Anion Gap 10 5-14 MMOL/L Blood Urea Nitrogen 12 7-18 MG/DL Creatinine 0.87 0.60-1.30 MG/DL Estimat Glomerular Filtration Rate > 60 BUN/Creatinine Ratio 14 Glucose Level 124 H 70-105 MG/DL Calcium Level 8.7 8.5-10.1 MG/DL Corrected Calcium 8.5 8.5-10.1 MG/DL Total Bilirubin 0.3 0.1-1.0 MG/DL Aspartate Amino Transf (AST/SGOT) 20 5-34 U/L Alanine Aminotransferase (ALT/SGPT) 19 0-55 U/L Alkaline Phosphatase 70 40-136 U/L Total Protein 6.8 6.4-8.2 GM/DL Albumin 4.2 3.2-4.5 GM/DL My Orders Orders - JAZLYN LIEBERMAN APRN Cbc With Automated Diff (06/17/19 16:32) Hs C Reactive Protein (06/17/19 16:32) Comprehensive Metabolic Panel (06/17/19 16:32) Ua Culture If Indicated (06/17/19 16:32) Ct Lumbar Spine Wo (06/17/19 16:32) Hydrocodone/Apap 5/325 Tablet (Lortab 5 (06/17/19 16:45) Medications Given in ED Current Medications Medications Dose Ordered Sig/Amber Route Start Time Stop Time Status Last Admin Dose Admin Acetaminophen/ Hydrocodone Bitart 1 tab ONCE ONCE PO 06/17/19 16:45 06/17/19 16:46 DC 06/17/19 16:34 1 TAB Vital Signs/I&O 06/17/19 16:04 Temp 97.9 Pulse 119 Resp 18 B/P (MAP) 140/96 (111) Pulse Ox 98 Blood Pressure Mean: 111 Departure Impression Primary Impression: Lumbar radiculopathy Disposition: 01 HOME, SELF-CARE Condition: Stable Departure-Patient Inst. Decision time for Depature: 17:48 Referrals: [facility] (PCP/Family) Primary Care Physician Patient Instructions: Radiculopathy Add. Discharge Instructions: 1. Return to ER for any concerns 2. Follow-up with your doctor next week. Scripts Methocarbamol (Robaxin-750) 750 Mg Tablet 750 MG PO Q4H PRN for PAIN-MODERATE, #20 TAB Prov: JAZLYN LIEBERMAN APRN 06/17/19 Prednisone (Prednisone) 20 Mg Tab 40 MG PO DAILY, #8 TAB 0 Refills Prov: JAZLYN LIEBERMAN APRN 06/17/19 Work/School Note: Work Release Form Date Seen in the Emergency Department: Jun 17, 2019 Return to Work: Jun 19, 2019 JAZLYN LIEBERMAN APRN Jun 17, 2019 17:14
[2019-06-17 17:16] LABS: ALANINE AMINOTRANSFERASE 19 U/L (0-55); ALBUMIN 4.2 GM/DL (3.2-4.5); ALKALINE PHOSPHATASE 70 U/L (40-136); BILIRUBIN,TOTAL 0.3 MG/DL (0.1-1.0); BUN/CREATININE RATIO 14; CALCIUM 8.7 MG/DL (8.5-10.1); CARBON DIOXIDE 25 MMOL/L (21-32); CHLORIDE 110 MMOL/L (98-107); CREATININE SERUM 0.87 MG/DL (0.60-1.30); GFR ESTIMATED > 60; GLUCOSE 124 MG/DL (70-105); POTASSIUM 3.5 MMOL/L (3.6-5.0); SODIUM 145 MMOL/L (135-145); TOTAL PROTEIN 6.8 GM/DL (6.4-8.2)
--- NOTE | 2019-06-17 17:25 | Diagnostic Imaging Report ---
PROCEDURE: CT lumbar spine without contrast. TECHNIQUE: Multiple contiguous axial images were obtained through the lumbar spine without the use of intravenous contrast. Sagittal and coronal reformations were then performed. Auto Exposure Controls were utilized during the CT exam to meet ALARA standards for radiation dose reduction. INDICATION: Low back pain for one month which radiates down right leg. No known injury. FINDINGS: There is normal height and alignment of the lumbar vertebral bodies. Disc spaces are well-maintained. No disc herniation or bony stenosis is evident at any level. There is no mass or acute bony abnormality. IMPRESSION: No abnormality is seen. Dictated by: Dictated on workstation # [id number]
[2019-06-17] MEDS ORDERED: PRD20T PO (17:49)
[2019-06-17] MEDS ORDERED: METH-313 PO (17:49)
[2019-06-17 17:57] VITALS: BP 140/96
== END 2019-06-17 17:57 | disposition home or self-care (01) ==
LOC: EDUNIT# 16:00 → ER 16:01
DX: M54.16 Radiculopathy, lumbar region (principal); M79.7 Fibromyalgia; M32.9 Systemic lupus erythematosus, unspecified; J42 Unspecified chronic bronchitis; I10 Essential (primary) hypertension; G40.909 Epilepsy, unspecified, not intractable, without status epilepticus; K21.9 Gastro-esophageal reflux disease without esophagitis; K58.9 Irritable bowel syndrome, unspecified; F32.9 Major depressive disorder, single episode, unspecified; F17.210 Nicotine dependence, cigarettes, uncomplicated; Z87.440 Personal history of urinary (tract) infections; Z87.01 Personal history of pneumonia (recurrent); Z90.710 Acquired absence of both cervix and uterus; Z90.49 Acquired absence of other specified parts of digestive tract; Z91.041 Radiographic dye allergy status; Z88.5 Allergy status to narcotic agent; Z91.040 Latex allergy status; Z82.49 Family history of ischemic heart disease and other diseases of the circulatory system
CPT/HCPCS: 36415; 72131; 80053; 81000; 85025; 86141

== ENCOUNTER → 2019-06-26 | Outpatient (CLI) | payer OTHER ==
[~2019-06-26] MED LIST changes: +METH-313 PO; +PRD20T PO
--- NOTE | 2019-06-26 13:23 | Diagnostic Imaging Report ---
PROCEDURE: MRI lumbar spine. TECHNIQUE: Multiplanar, multisequence MRI of the lumbar spine was performed without contrast. INDICATION: Low back pain for one month. COMPARISON: No prior studies are available for comparison. FINDINGS: Curvature and alignment of the lumbar spine is normal. Vertebral body heights and marrow signal are normal. No geographic marrow lesion or acute compression fracture is seen. There is fairly normal height and hydration to the lumbar intervertebral discs. The conus is unremarkable at the T12-L1 level. T12-L1: The central canal and neuroforamina are widely patent. L1-L2: The central canal and neuroforamina are widely patent. L2-L3: The central canal and neuroforamina are widely patent. L3-L4: The central canal and neuroforamina are widely patent. L4-L5: There is wide-based midline disc bulge indenting the ventral thecal sac. This does create mild narrowing of the central canal. There is also mild narrowing of the lateral recesses bilaterally. Neuroforamina are patent. L5-S1: The central canal and neuroforamina are patent. Paraspinous tissues are unremarkable. IMPRESSION: Wide-based midline disc bulge at L4-L5 level, resulting in central canal and bilateral lateral recess narrowing. No neuroforaminal stenosis is seen. All other levels are unremarkable. Dictated by: Dictated on workstation # [id number]
== END ==
LOC: RAD 12:20
PROVIDERS: ATTEND Nurse Practitioner Family
DX: M51.16 Intervertebral disc disorders with radiculopathy, lumbar region (principal); M48.061 Spinal stenosis, lumbar region without neurogenic claudication
CPT/HCPCS: 72148

== ENCOUNTER 2019-09-30 13:41 | Emergency (ER) | payer OTHER ==
[~2019-09-30] VITALS: Ht 158.4 cm; Wt 79.0 kg
[2019-09-30] MEDS ORDERED: ASPIRIN 81 MG CHEW (CHILDREN'S ASA) PO ONE (14:00)
--- NOTE | 2019-09-30 14:03 | ED Chest Pain ---
General Chief Complaint: Chest Pain Stated Complaint: SOA/BACK AND CHEST PAIN Source: patient Exam Limitations: no limitations History of Present Illness Date Seen by Provider: Sep 30, 2019 Time Seen by Provider: 14:02 Initial Comments To ER with shortness of breath chest and back pain. His thoracic back pain began about 3 hours ago while at rest. No fever no chills no cough. History of lupus.Pain is worse with deep breathing. Timing/Duration: constant Severity/Quality: moderate Location: central Radiation: no radiation Activities at Onset: none Prior CP/Workup: no prior chest pain ASA po MARKETING OPERATIONS INTERN: No NTG SL MARKETING OPERATIONS INTERN: No Allergies and Home Medications Allergies Coded Allergies: Iodinated Contrast- Oral and IV Dye (Verified Allergy, Severe, ANAPHYL AXIS, 06/14/17) codeine (Unverified Allergy, Unknown, 06/14/17) latex (Verified Allergy, Unknown, 06/14/17) meperidine HCl (Verified Allergy, Unknown, 06/14/17) Home Medications Dicyclomine HCl 10 Mg Capsule, 10-20 MG PO Q6H PRN for ABDOMINAL PAIN Prescribed by: AVELINO MARQUES on 06/14/17 2316 Hydrocodone/Acetaminophen 1 Each Tablet, 1-2 EACH PO Q4H Prescribed by: CHARLOTTE BLANCHARD on 02/20/17 1615 Hyoscyamine Sulfate 0.125 Mg Tab.subl, 1-2 TAB SL Q4H Prescribed by: AVELINO MARQUES on 06/14/17 2316 Methocarbamol 750 Mg Tablet, 750 MG PO Q4H PRN for PAIN-MODERATE Prescribed by: JAZLYN LIEBERMAN on 06/17/191748 Ondansetron 4 Mg Tab.rapdis, 4 MG PO Q4H Prescribed by: AVELINO MARQUES on 06/14/17 2316 Pantoprazole Sodium 40 Mg Tablet.dr, 40 MG PO BID, (Reported) Pantoprazole Sodium 40 Mg Tablet.dr, 40 MG PO DAILY Prescribed by: JAZLYN LIEBERMAN on 09/30/19 1509 Prednisone 20 Mg Tab, 40 MG PO DAILY Prescribed by: JAZLYN LIEBERMAN on 06/17/19 174 Prednisone 20 Mg Tab, 40 MG PO DAILY Prescribed by: JAZLYN LIEBERMAN on 09/30/19 1632 Sucralfate 1 Gm Tablet, 1 GM PO ACHS, (Reported) Tramadol HCl 50 Mg Tablet, 50 MG PO Q6H PRN for PAIN-MILD, (Reported) Patient Home Medication List Home Medication List Reviewed: Yes Review of Systems Review of Systems Constitutional: see HPI, diaphoresis EENTM: No Symptoms Reported Respiratory: See HPI, Cough Cardiovascular: See HPI, Chest Pain Gastrointestinal: See HPI, Nausea Genitourinary: No Symptoms Reported Musculoskeletal: no symptoms reported Skin: no symptoms reported Psychiatric/Neurological: No Symptoms Reported Endocrine: No Symptoms Reported Past Uywstvl-Tvdcwo-Tpjggd Hx Patient Social History Type Used: Cigarettes 2nd Hand Smoke Exposure: Yes Recent Hopitalizations: No Immunizations Up To Date Tetanus Booster (TDap): More than 5yrs Date of Pneumonia Vaccine: Nov 16, 2010 Date of Influenza Vaccine: Oct 19, 2013 Seasonal Allergies Seasonal Allergies: Yes Past Medical History Surgeries: Yes (EGD X 3; LAPAROSCOPIES WITH ABLATION OF ENDOMETRIOSIS X 3; HYST/BSO) Appendectomy, Gallbladder, Hysterectomy Respiratory: Yes Pneumonia, Chronic Bronchitis Cardiac: Yes Heart Murmur, Hypertension, Rheumatic Fever Neurological: Yes Seizure Disorder Reproductive Disorders: Yes (CERVICAL DYSPLASIA; ENDOMETRIOSIS) Female Reproductive Disorders: 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, 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 Sexually Transmitted Disease: No HIV/AIDS: No Genitourinary: Yes Kidney Stones, UTI-Chronic Gastrointestinal: Yes Gastroesophageal Reflux, Chronic Constipation, Chronic Diarrhea, Ulcer, Gall Bladder Disease, Irritable Bowel Musculoskeletal: Yes Arthritis, Fibromyalgia, Chronic Back Pain Endocrine: Yes Lupus HEENT: No Loss of Vision: Denies Hearing Impairment: Denies Cancer: No Psychosocial: Yes Depression Integumentary: No Blood Disorders: No Family Medical History Alcoholism 03 MOTHER 09 BROTHER Chest pain 03 FATHER Congestive heart failure 03 FATHER Family history: Allergy 09 BROTHER boys daughter Family history: Arthritis 09 SISTER boys Family history: Asthma 03 MOTHER 09 BROTHER 09 BROTHER boys Family history: Diabetes mellitus 03 MOTHER Family history: Gastrointestinal disease 03 FATHER Family history: Hypertension 03 FATHER Family history: Thyroid disorder 03 MOTHER Headache 03 MOTHER boys daughter Hearing loss daughter History of - anemia daughter History of drug abuse 03 FATHER 09 BROTHER 09 BROTHER Kidney disease 03 FATHER No Family History of: Abdominal aortic aneurysm [place]'s disease Aphasia Cancer Cancer of colon Cataract Congenital heart disease Cystic fibrosis Dementia Dysphagia Family history: Alzheimer's disease Family history: Breast disease Family history: Cardiovascular disease Family history: Coronary thrombosis Family history: Glaucoma Family history: Osteoporosis Heart disease Hereditary disease History of - disorder History of - respiratory disease Human immunodeficiency virus (HIV) seropositivity Hypercholesterolemia Infertile Malignant neoplasm of lung Myocardial infarction Parkinson's disease Prostate cancer Psychotic disorder Seizure disorder Stroke Tuberculosis Visual impairment Heart Disease Physical Exam Vital Signs Vital Signs - First Documented Capillary Refill : Height, Weight, BMI Height: 5'1.00" Weight: 164lbs. 0.0oz. 74.935640am; 26.6 BMI Method:Actual General Appearance: No Apparent Distress, WD/WN Neck: Full Range of Motion, Normal Inspection Respiratory: No Accessory Muscle Use, No Respiratory Distress Cardiovascular: Regular Rate, Rhythm, Normal Peripheral Pulses Gastrointestinal: Normal Bowel Sounds, Non Tender, Soft Genital/Rectal: Normal Vaginal Exam Extremity: Normal Capillary Refill, Normal Inspection Neurologic/Psychiatric: Alert, Oriented x3 Skin: Normal Color, Warm/Dry Progress/Results/Core Measures Results/Orders Lab Results Laboratory Tests Test 09/30/19 13:35 09/30/19 14:45 Range/Units White Blood Count 6.8 4.3-11.0 10^3/uL Red Blood Count 4.94 4.35-5.85 10^6/uL Hemoglobin 14.5 11.5-16.0 G/DL Hematocrit 43 35-52 % Mean Corpuscular Volume 88 80-99 FL Mean Corpuscular Hemoglobin 29 25-34 PG Mean Corpuscular Hemoglobin Concent 33 32-36 G/DL Red Cell Distribution Width 12.6 10.0-14.5 % Platelet Count 224 130-400 10^3/uL Mean Platelet Volume 11.4 H 7.4-10.4 FL Neutrophils (%) (Auto) 50 42-75 % Lymphocytes (%) (Auto) 38 12-44 % Monocytes (%) (Auto) 7 0-12 % Eosinophils (%) (Auto) 5 0-10 % Basophils (%) (Auto) 1 0-10 % Neutrophils # (Auto) 3.4 1.8-7.8 X 10^3 Lymphocytes # (Auto) 2.6 1.0-4.0 X 10^3 Monocytes # (Auto) 0.5 0.0-1.0 X 10^3 Eosinophils # (Auto) 0.3 0.0-0.3 10^3/uL Basophils # (Auto) 0.1 0.0-0.1 10^3/uL Prothrombin Time 13.0 12.2-14.7 SEC INR Comment 0.9 0.8-1.4 Activated Partial Thromboplast Time 34 24-35 SEC D-Dimer 0.44 0.00-0.49 UG/ML Sodium Level 143 135-145 MMOL/L Potassium Level 3.6 3.6-5.0 MMOL/L Chloride Level 106 98-107 MMOL/L Carbon Dioxide Level 28 21-32 MMOL/L Anion Gap 9 5-14 MMOL/L Blood Urea Nitrogen 12 7-18 MG/DL Creatinine 0.78 0.60-1.30 MG/DL Estimat Glomerular Filtration Rate > 60 BUN/Creatinine Ratio 15 Glucose Level 85 70-105 MG/DL Calcium Level 9.8 8.5-10.1 MG/DL Corrected Calcium 9.6 8.5-10.1 MG/DL Magnesium Level 1.8 1.6-2.4 MG/DL Total Bilirubin 0.3 0.1-1.0 MG/DL Aspartate Amino Transf (AST/SGOT) 26 5-34 U/L Alanine Aminotransferase (ALT/SGPT) 26 0-55 U/L Alkaline Phosphatase 79 40-136 U/L Myoglobin 22.0 10.0-92.0 NG/ML Troponin I < 0.028 <0.028 NG/ML B-Type Natriuretic Peptide 65.1 <100.0 PG/ML Total Protein 7.0 6.4-8.2 GM/DL Albumin 4.3 3.2-4.5 GM/DL Serum Test, Qualitative NEGATIVE NEGATIVE Urine Opiates Screen POSITIVE H NEGATIVE Urine Oxycodone Screen NEGATIVE NEGATIVE Urine Methadone Screen NEGATIVE NEGATIVE Urine Propoxyphene Screen NEGATIVE NEGATIVE Urine Barbiturates Screen NEGATIVE NEGATIVE Ur Tricyclic Antidepressants Screen NEGATIVE NEGATIVE Urine Phencyclidine Screen NEGATIVE NEGATIVE Urine Amphetamines Screen NEGATIVE NEGATIVE Urine Methamphetamines Screen NEGATIVE NEGATIVE Urine Benzodiazepines Screen NEGATIVE NEGATIVE Urine Cocaine Screen NEGATIVE NEGATIVE Urine Cannabinoids Screen NEGATIVE NEGATIVE My Orders Orders - JAZLYN LIEBERMAN APRN Cbc With Automated Diff (09/30/19 13:52) Magnesium (09/30/19 13:52) Chest 1 View, Ap/Pa Only (09/30/19 13:52) Ekg Tracing (09/30/19 13:52) Comprehensive Metabolic Panel (09/30/19 13:52) Myoglobin Serum (09/30/19 13:52) Protime With Inr (09/30/19 13:52) Partial Thromboplastin Time (09/30/19 13:52) O2 (09/30/19 13:52) Monitor-Rhythm Ecg Trace Only (09/30/19 13:52) Lipid Panel (10/01/19 06:00) Ed Iv/Invasive Line Start (09/30/19 13:52) BNP (09/30/19 13:52) Troponin I (09/30/19 13:52) Aspirin Chewable Tablet (Baby Aspirin Ch (09/30/19 14:00) Drug Screen Stat (Urine) (09/30/19 13:52) Hcg,Qualitative Serum (09/30/19 13:52) Ketorolac Injection (Toradol Injection) (09/30/19 14:15) Fibrin Degradation Products (09/30/19 13:35) Antacid Suspension (Mylanta Suspension (09/30/19 15:15) Lidocaine 2% Viscous 15 Ml (Xylocaine Vi (09/30/19 15:15) Morphine Injection (Morphine Injection (09/30/19 15:53) Morphine Injection (Morphine Injection (09/30/19 15:53) Ondansetron Injection (Zofran Injectio (09/30/19 15:55) Rx-Ondansetron Po (Rx-Zofran Po) (09/30/19 16:21) Ct Chest Wo (09/30/19 16:31) Lorazepam Injection (Ativan Injection) (09/30/19 17:30) Ketorolac Injection (Toradol Injection) (09/30/19 17:30) Lipase (09/30/19 17:18) Medications Given in ED Current Medications Medications Dose Ordered Sig/Amber Route Start Time Stop Time Status Last Admin Dose Admin Al Hydrox/Mg Hydrox/Simethicone 30 ml ONCE ONCE PO 09/30/19 15:15 09/30/19 15:16 DC 09/30/19 15:12 30 ML Aspirin 324 mg ONCE ONCE PO 09/30/19 14:00 09/30/19 14:01 DC 09/30/19 14:12 324 MG Ketorolac Tromethamine 15 mg ONCE ONCE IVP 09/30/19 14:15 09/30/19 14:16 DC 09/30/19 14:13 15 MG Lidocaine HCl 15 ml ONCE ONCE PO 09/30/19 15:15 09/30/19 15:16 DC 09/30/19 15:12 15 ML Ondansetron HCl 4 mg STK-MED ONCE .ROUTE 09/30/19 15:55 09/30/19 15:59 DC 09/30/19 15:55 4 MG Vital Signs/I&O 09/30/19 09/30/19 13:45 13:45 Temp 36.0 Pulse 85 Resp 18 B/P (MAP) 151/107 (122) Pulse Ox 100 O2 Delivery Room Air Room Air Departure Communication (Admissions) NAME: CECELIA MONCADA [facility] REC#: [id number] PT STATUS: REG ER : 1980 PHYSICIAN: JAZLYN LIEBERMAN APRN ADMIT DATE: 09/30/19/ER Draft POSDate of Exam:09/30/19 CHEST 1 VIEW, AP/PA ONLY INDICATION: Shortness of air. Chest pain. COMPARISON: 06/14/2017 FINDINGS: Single frontal view of the chest demonstrates normal heart size and pulmonary vascularity. The lungs are well aerated and clear. No large pleural effusion or pneumothorax is seen. The visualized osseous structures show no acute abnormalities. IMPRESSION: 1. No acute cardiopulmonary process. Dictated on workstation # [id number] Dict: 09/30/19 1424 Trans: 09/30/19 1425 [facility] [id number] Interpreted by: EDY TOMLINSON MD Electronically signed by: Impression Primary Impression: Chest pain Qualified Codes: R07.9 - Chest pain, unspecified Additional Impression: Pleuritic chest pain Disposition: 01 HOME, SELF-CARE Condition: Stable Departure-Patient Inst. Decision time for Depature: 15:08 Referrals: [facility] (PCP/Family) Primary Care Physician CAMERON JOSEPH MD FACP FAC CCDS Sanjay VALENZEULA MD, BASHAR J MD Patient Instructions: Chest Pain (DC) Add. Discharge Instructions: All discharge instructions reviewed with patient and/or family. Voiced understanding. Scripts Prednisone (Prednisone) 20 Mg Tab 40 MG PO DAILY, #6 TAB 0 Refills Prov: JAZLYN LIEBERMAN APRN 09/30/19 Pantoprazole Sodium (Protonix) 40 Mg Tablet.dr 40 MG PO DAILY, #14 TAB Prov: JAZLYN LIEBERMAN APRN 09/30/19 JAZLYN LIEBERMAN APRN Sep 30, 2019 14:03 POS
[2019-09-30 14:04] LABS: BASOPHILS # (AUTO) 0.1 10^3/uL (0.0-0.1); BASOPHILS % (AUTO) 1 % (0-10); EOSINOPHILS # (AUTO) 0.3 10^3/uL (0.0-0.3); EOSINOPHILS % (AUTO) 5 % (0-10); HEMATOCRIT 43 % (35-52); HEMOGLOBIN 14.5 G/DL (11.5-16.0); LYMPHOCYTES # (AUTO) 2.6 X 10^3 (1.0-4.0); LYMPHOCYTES % (AUTO) 38 % (12-44); MEAN CORPUSCULAR HEMOGLOBIN 29 PG (25-34); MEAN CORPUSCULAR HGB CONC 33 G/DL (32-36); MEAN CORPUSCULAR VOLUME 88 FL (80-99); MEAN PLATELET VOLUME 11.4 FL (7.4-10.4); MONOCYTES # (AUTO) 0.5 X 10^3 (0.0-1.0); MONOCYTES % (AUTO) 7 % (0-12); NEUTROPHILS # (AUTO) 3.4 X 10^3 (1.8-7.8); NEUTROPHILS % (AUTO) 50 % (42-75); PLATELET COUNT 224 10^3/uL (130-400); RED CELL DISTRIBUTION WIDTH 12.6 % (10.0-14.5); WHITE BLOOD COUNT 6.8 10^3/uL (4.3-11.0)
[2019-09-30] MEDS ORDERED: KETOROLAC 30 MG/ML VIAL IVP ONE ×2 (14:15→17:30)
--- NOTE | 2019-09-30 14:26 | Diagnostic Imaging Report ---
INDICATION: Shortness of air. Chest pain. COMPARISON: 06/14/2017 FINDINGS: Single frontal view of the chest demonstrates normal heart size and pulmonary vascularity. The lungs are well aerated and clear. No large pleural effusion or pneumothorax is seen. The visualized osseous structures show no acute abnormalities. IMPRESSION: 1. No acute cardiopulmonary process. Dictated by: Dictated on workstation # [id number]
[2019-09-30 14:29] LABS: FIBRIN DEGRADATION PRODUCTS 0.44 UG/ML (0.00-0.49); INR 0.9 (0.8-1.4)
[2019-09-30 14:33] LABS: ALANINE AMINOTRANSFERASE 26 U/L (0-55); ALBUMIN 4.3 GM/DL (3.2-4.5); ALKALINE PHOSPHATASE 79 U/L (40-136); BILIRUBIN,TOTAL 0.3 MG/DL (0.1-1.0); BUN/CREATININE RATIO 15; CALCIUM 9.8 MG/DL (8.5-10.1); CARBON DIOXIDE 28 MMOL/L (21-32); CHLORIDE 106 MMOL/L (98-107); CREATININE SERUM 0.78 MG/DL (0.60-1.30); GFR ESTIMATED > 60; GLUCOSE 85 MG/DL (70-105); MAGNESIUM 1.8 MG/DL (1.6-2.4); POTASSIUM 3.6 MMOL/L (3.6-5.0); SODIUM 143 MMOL/L (135-145)
[2019-09-30 15:06] LABS: AMPHETAMINE SCREEN, URINE NEGATIVE (NEGATIVE); BARBITURATE SCREEN URINE NEGATIVE (NEGATIVE); BENZODIAZEPINES SCREEN URINE NEGATIVE (NEGATIVE); CANNABINOID SCREEN, URINE NEGATIVE (NEGATIVE); COCAINE SCREEN URINE NEGATIVE (NEGATIVE); METHADONE STAT NEGATIVE (NEGATIVE); METHAMPHETAMINE SCREEN URINE S NEGATIVE (NEGATIVE); OPIATE SCREEN URINE POSITIVE (NEGATIVE); OXYCODONE STAT NEGATIVE (NEGATIVE); PROPOXYPHENE STAT NEGATIVE (NEGATIVE); TRICYCLIC ANTIDEPRESSANTS SCRE NEGATIVE (NEGATIVE)
[2019-09-30] MEDS ORDERED: PANT40TA2 PO (15:09)
[2019-09-30] MEDS ORDERED: ANTACID SUSP 30 ML UDC (MYLANTA) PO ONE (15:15)
[2019-09-30] MEDS ORDERED: LIDOCAINE 2% VISCOUS 15 ML UDC PO ONE (15:15)
[2019-09-30] MEDS ORDERED: morphine INJ 10 MG/ML 1ML (SYR OR VIAL) IVP STA (15:53)
[2019-09-30] MEDS ORDERED: morphine INJ 10 MG/ML 1ML (SYR OR VIAL) ONE (15:53)
[2019-09-30] MEDS ORDERED: ONDANSETRON 4 MG/2 ML (SDV) Z0FRAN ONE (15:55)
[2019-09-30] MEDS ORDERED: RX-ONDANSETRON 4 MG ODT (ZOFRAN) PPK #4 PO STA (16:21)
[2019-09-30] MEDS ORDERED: PRD20T PO (16:32)
--- NOTE | 2019-09-30 17:26 | Diagnostic Imaging Report ---
CT CHEST WO TECHNIQUE: Multiple contiguous axial images were obtained through the chest without the use of intravenous contrast. All CT scans use one or more of the following dose optimizing techniques: automated exposure control, MA and/or KvP adjustment based on a patient size and exam type, or iterative reconstruction. INDICATION: Chest pain. COMPARISON: Chest radiograph of earlier same day. FINDINGS: Lungs and airway: No endoluminal nodule within the trachea. No pulmonary mass, nodule or consolidation. Pleura: No pleural effusion or pneumothorax. Heart and mediastinum: Thyroid is normal. No supraclavicular or axillary lymphadenopathy. No mediastinal, discrete hilar or juxtaphrenic lymphadenopathy. The heart is normal in size without pericardial effusion. Normal caliber thoracic aorta. A small amount of residual thymic tissue is present in the anterior mediastinum. Upper abdomen: Cholecystectomy. No acute abnormality in the upper abdomen is appreciated by noncontrast imaging. Musculoskeletal: Hemangioma is present within the T4 vertebral body. No vertebral body fracture. No sternal fracture. Clavicles are intact. No acute rib fracture on either side. IMPRESSION: 1. Normal CT chest. Dictated by: Dictated on workstation # [id number]
[2019-09-30] MEDS ORDERED: LORazepam INJ 2 MG/ML (ATIVAN) VIAL IVP PRN (17:30)
--- NOTE | 2019-09-30 18:20 | NUR ---
PATIENT UPSET STATES SOMETHING IS WRONG. IM TORADOL AND TAKE HOME ZOFRAN ADMINISTERED. PATIENT REFUSED ATIVAN IV. STATES SCARED TO TAKE IT.
[2019-09-30] MEDS ORDERED: KETOROLAC 60 MG/2 ML VIAL IM ONE (18:30)
[2019-09-30] MEDS ORDERED: LORazepam 0.5 MG (ATIVAN) TABLET ONE (18:40)
[2019-09-30] MEDS ORDERED: LORazepam 0.5 MG (ATIVAN) TABLET PO ONE (18:45)
--- NOTE | 2019-09-30 18:45 | NUR ---
PATIENT DOUBLED OVER IN PAIN, PULSE RATE INCREASE, PT HOLDING BREATH WITH PAIN. AT BEDSIDE. PATIENT PAIN LASTED 2 MIN.
--- NOTE | 2019-09-30 18:50 | NUR ---
PATIENT STATES SHE KNOWS IT NOW HER ULCERS ACTING UP. PATIENT AGREED TO TAKE PO ATIVAN. AGREED TO FOLLOW UP TOMORROW WITH [facility]. PT STATES WILL WATCH NSAID INTAKE.
[2019-09-30 18:51] VITALS: BP 120/75
== END 2019-09-30 18:51 | disposition home or self-care (01) ==
LOC: EDUNIT# 13:41 → ER 13:43
DX: R07.81 Pleurodynia (principal); I10 Essential (primary) hypertension; F32.9 Major depressive disorder, single episode, unspecified; G40.909 Epilepsy, unspecified, not intractable, without status epilepticus; K21.9 Gastro-esophageal reflux disease without esophagitis; M79.7 Fibromyalgia; K58.9 Irritable bowel syndrome, unspecified; Z87.442 Personal history of urinary calculi; Z87.440 Personal history of urinary (tract) infections; Z90.722 Acquired absence of ovaries, bilateral; Z87.39 Personal history of other diseases of the musculoskeletal system and connective tissue; Z90.49 Acquired absence of other specified parts of digestive tract; Z90.710 Acquired absence of both cervix and uterus; Z88.5 Allergy status to narcotic agent; Z91.040 Latex allergy status; Z91.041 Radiographic dye allergy status; Z79.52 Long term (current) use of systemic steroids; Z77.22 Contact with and (suspected) exposure to environmental tobacco smoke (acute) (chronic); Z82.49 Family history of ischemic heart disease and other diseases of the circulatory system
CPT/HCPCS: 36415; 71045; 71250; 80053; 80306; 83690; 83735; 83874; 83880; 84484; 84703; 85025; 85379; 85610; 85730; 93005; 93041

== ENCOUNTER 2020-02-14 18:45 | Observation (INO) | payer SELFPAY ==
[~2020-02-14] VITALS: Ht 154 cm; Wt 79.4 kg
[~2020-02-14 18:45] MED LIST changes: +PANT40TA2 PO; -TRAM50TA2 PO; +TRM50T PO
--- OUTSIDE RECORDS SUMMARY | 2020-02-14 18:50 | XMS REPORT | Clinical Summary ---
Author Author [facility] Organization [facility] Address Unknown Phone Unavailable Care Team Providers Care Dance Hall Hostess Name Role Phone Jhon Restrepo MD Unavailable Adri Pichardo MD PCP Source Comments Some departments are not documenting in the electronic medical record. If you d o not see the information that you expected, contact Release of Information in [facility] path intelligence Information Management department at [phone] for further assistan ce in locating additional records.[facility] Allergies Comments Active Allergy Reactions Severity Noted Date Codeine UNKNOWN Low 01/06/2015 Iodinated Contrast Media UNKNOWN Low 01/06 Meperidine HIVES Medium 01/06/2015 Latex EDEMA Medium 01/06/2015 NSaids - ulcers Nsaids (Non-Steroidal STOMACH UPSET Low 02/14/20 15 Anti-Inflammatory Drug) Medications End Date Status Medication Sig Dispensed Refills Start Date Active metoprolol XL (TOPROL XL) Take 200 mg 0 200 mg tablet by mouth daily. Active HYDROCODONE BIT/HOMATROP Take by 0 ME-BR (HYDROCODONE mouth. COMPOUND PO) Active diazepam (VALIUM) 5 mg Take 5 mg by 0 tablet mouth every 6 hours as needed. Active SUMAtriptan (IMITREX) 50 Take 50 mg by 0 mg tablet mouth once as needed for Migraine symptoms. Active Problems Problem Noted Date SLE (systemic lupus erythematosus) 02/17/2015 Seizure-like activity 02/17/2015 Polyarthralgia 02/17/2015 Vitamin D deficiency 02/17/2015 Social History Date Tobacco Use Types Packs/Day Years Used Never Smoker Drinks/Week oz/Week Comments Alcohol Use No Sex Assigned at Date Recorded Not on file Industry Job Start Date Occupation Not on file Not on file Not on file Travel End Travel History Travel Start No recent travel history available. Last Filed Vital Signs Reading Time Taken Comments Vital Sign 127/94 02/16/2015 3:18 PM CDT Blood Pressure 89 02/16/2015 3:18 PM CDT Pulse 36.7 C (98 F) 02/16/2015 3:18 PM CDT Temperature 20 02/16/2015 3:18 PM CDT Respiratory Rate 98% 01/06/2015 1:38 PM CDT Oxygen Saturation - - Inhaled Oxygen Concentration 77.7 kg (171 lb 6.4 oz) 02/16/2015 3:18 PM CDT Weight 157.5 cm (5' 2") 02/16/2015 3:18 PM CDT Height 31.35 02/16/2015 3:18 PM CDT Body Mass Index Plan of Treatment Health Maintenance Due Date Last Done Comments HIV SCREENING 1993 DTAP/TDAP VACCINES (1 - 1996 Tdap) PHYSICAL (COMPREHENSIVE) 1996 EXAM CERVICAL CANCER SCREENING 1999 BREAST CANCER SCREENING 2018 INFLUENZA VACCINE 07/16/2020 HEPATITIS C SCREENING Completed 02/16/2015 Results Not on filefrom Last 3 Months Insurance Type Payer Benefit Subscriber ID Effective Phone Address Plan / Dates Group PPO BCBS [employer] xxxxxxxxxxxx 2012- BLUE OUT Present OF STATE [place] 2004- [place] [phone] Advance Directives Patient [employer] Explanation Type Date Recorded Advance 02/16/2015 5:19 PM Directive/DPOA
--- OUTSIDE RECORDS SUMMARY | 2020-02-14 18:52 | XMS REPORT | Continuity of Care Document ---
Author Organization Unknown Address Unknown Phone Unavailable Allergies Active Description Code Type Severity Reaction Onset Reported/Identified Relationship to Patient Clinical Status Yes Iodinated Contrast Media - IV Dye [id number] Drug Allergy Severe ANAPHYLAXIS 04/23/2013 Yes Iodinated Contrast Media - Oral and [id number] Drug Allergy Severe ANAPHYLAXIS 04/23/2013 Yes Iodinated Contrast Media [id number] Drug Allergy Severe ANAPHYLAXIS 017 Yes Iodinated Contrast- Oral and IV Dye [id number] Drug Allergy Severe ANAPHYLAXIS 06/14/2017 Yes codeine [id number] Drug Allergy Unknown N/A 06/14/2017 Yes latex [id number] Drug Allergy Unknown N/A 06/14/2017 Yes meper[address] HCl [id number] Dr gonzalez Allergy Unknown N/A 06/14/2017 Medications There is no data. 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 09/23/2012 Ot 847.1 SPRA IN THORACIC REGION 09/23/2012 Ot 959.19 OTH INJURY OF OTHER SITES OF TRUNK 09/23/2012 Ot E000.8 OTH ER EXTERNAL CAUSE STATUS 09/23/2012 Ot E029.9 OTH ER ACTIVITY 09/23/2012 Ot E849.0 ACC IDENT IN HOME 09/23/2012 Ot E885.9 FAL L FROM SLIPPING, TRIPPING, OR STUMBLI 10/19/2013 KUSUM FRASER, LAYLA Yu Ot 564.1 IRRITABLE BOWEL SYNDROME 10/19/2013 LAYLA NOE MD Ot 787.0 1 NAUSEA WITH VOMITING 10/19/2013 KUSUM FRASER, LAYLA Yu Ot V04.8 1 ND FOR PROPHYLACTIC VACCIN AND INOCULATI 01/26/2014 IAIN FRASER, MANINDER Dumont Ot 616.10 VAGINITIS NOS 01/26/2014 IAIN FRASER, MANINDER Dumont Ot 623.8 NONINFLAM DIS VAGINA NEC 09/22/2014 Ot 959.8 09/22/2014 Ot E000.8 09/22/2014 Ot E819.9 09/22/2014 DILMA FRASER, ELIZA Grace Ot V72.84 11/10/2014 LINDSEY PA, MANUELITO K Ot 530.81 11/10/2014 LINDSEY PA, MANUELITO Geri Ot 710.0 11/10/2014 LINDSEY PA, MANUELITO K Ot 780.2 11/10/2014 LINDSEY PA, MANUELITO K Ot 785.0 11/10/2014 LINDSEY PA, MANUELITO K Ot 785.1 11/10/2014 LINDSEY PA, MANUELITO K Ot 786.50 11/10/2014 LINDSEY PA, MANUELITO K Ot V17.3 11/10/2014 LINDSEY PA, MANUELITO K Ot V58.69 11/23/2015 LINDSEY PA, MANUELITO K Ot 530.81 11/23/2015 LINDSEY PA, MANUELITO K Ot 710.0 11/23/2015 LINDSEY PA, MANUELITO K Ot 780.2 11/23/2015 LINDSEY PA, MANUELITO K Ot 785.0 11/23/2015 LINDSEY PA, MANUELITO K Ot 785.1 11/23/2015 LINDSEY PA, MANUELITO K Ot 786.50 11/23/2015 LINDSEY PA, MANUELITO K Ot V17.3 11/23/2015 LINDSEY PA, MANUELITO K Ot V58.69 03/03/2016 Ot 959.8 INJU RY NURSING SERVICES MANAGER SITE/SITE NEC 03/03/2016 Ot E000.8 OTH ER EXTERNAL CAUSE STATUS 03/03/2016 Ot E819.9 TRA FFIC ACC NOS- PERS NOS 03/03/2016 DILMA FRASER, ELIZA Grace Ot V72.84 EXAM PRE-OPERATIVE NOS 03/03/2016 JERALD , AVELINO K Ot F17.210 NICOTINE DEPENDENCE, CIGARETTES, UNCOMPL 03/03/2016 JERALD MATIAS HERNANDEZA K Ot L03.115 CELLULITIS OF RIGHT LOWER LIMB 03/03/2016 JERALD MATIAS HERNANDEZA Geri Ot L93.0 DISCOID LUPUS ERYTHEMATOSUS 03/04/2016 JERALD MATIAS HERNANDEZA K Ot F17.210 NICOTINE DEPENDENCE, CIGARETTES, UNCOMPL 03/04/2016 JERALD MATIAS HERNANDEZA K Ot L03.115 CELLULITIS OF RIGHT LOWER LIMB 03/04/2016 JERALD , AVELINO K Ot L93.0 DISCOID LUPUS ERYTHEMATOSUS 03/26/2016 JERALD , AVELINO Geri Ot F17.210 NICOTINE DEPENDENCE, CIGARETTES, UNCOMPL 03/26/2016 JERALD MATIAS HERNANDEZA K Ot L03.115 CELLULITIS OF RIGHT LOWER LIMB 03/26/2016 JERALD MATIAS HERNANDEZA K Ot L93.0 DISCOID LUPUS ERYTHEMATOSUS 02/14/2017 SPENCER, VICKY L TRACK WELDER Ot R10.11 RIGHT UPPER QUADRANT PAIN 02/17/2017 SPENCER, VICKY L TRACK WELDER Ot R10.11 RIGHT UPPER QUADRANT PAIN 02/17/2017 CHARLOTTE BLANCHARD MD Ot K21.9 GASTRO-ESOPHAGEAL REFLUX DISEASE WITHOUT 02/17/2017 CHARLOTTE BLANCHARD MD Ot K82.8 OTHER SPECIFIED DISEASES OF GALLBLADDER 02/17/2017 CHARLOTTE BLANCHARD MD Ot Z01.81 8 ENCOUNTER FOR OTHER PREPROCEDURAL EXAMIN 02/20/2017 CHARLOTTE BLANCHARD MD Ot K21.9 GASTRO-ESOPHAGEAL REFLUX DISEASE WITHOUT 02/20/2017 CHARLOTTE BLANCHARD MD Ot K82.8 OTHER SPECIFIED DISEASES OF GALLBLADDER 02/20/2017 CHARLOTTE BLANCHARD MD Ot Z01.81 8 ENCOUNTER FOR OTHER PREPROCEDURAL EXAMIN 02/21/2017 CHARLOTTE BLANCHARD MD Ot F17.21 0 NICOTINE DEPENDENCE, CIGARETTES, UNCOMPL 02/21/2017 CHARLOTTE BLANCHARD MD Ot G40.90 9 EPILEPSY, UNSP, NOT INTRACTABLE, WITHOUT 02/21/2017 CHARLOTTE BLANCHARD MD Ot K21.0 GASTRO-ESOPHAGEAL REFLUX DISEASE WITH ES 02/21/2017 CHARLOTTE BLANCHARD MD Ot K29.70 GASTRITIS, UNSPECIFIED, WITHOUT BLEEDING 02/21/2017 CHARLOTTE BLANCHARD MD Ot K44.9 DIAPHRAGMATIC HERNIA WITHOUT OBSTRUCTION 02/21/2017 CHARLOTTE BLANCHARD MD Ot K82.4 CHOLESTEROLOSIS OF GALLBLADDER 02/21/2017 CHARLOTTE BLANCHARD MD, Ot M32.9 SYSTEMIC LUPUS ERYTHEMATOSUS, UNSPECIFIE 02/21/2017 CHARLOTTE BLANCHARD MD Ot M79.1 MYALGIA 02/21/2017 CHALROTTE BLANCHARD MD, Ot Z11.2 ENCOUNTER FOR SCREENING FOR OTHER BACTER 02/21/2017 CHARLOTTE BLANCHARD MD, Ot Z79.89 9 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 BLAST FURNACE KEEPER HELPER (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) DRUG THERAPY 02/21/2017 CHARLOTTE BLANCHARD MD, Ot F17.21 0 NICOTINE DEPENDENCE, CIGARETTES, UNCOMPL 02/21/2017 CHARLOTTE BLANCHARD MD, Ot G40.90 9 EPILEPSY, UNSP, NOT INTRACTABLE, WITHOUT 02/21/2017 CHARLOTTE BLANCHARD MD Ot K21.0 GASTRO-ESOPHAGEAL REFLUX DISEASE WITH ES 02/21/2017 CHARLOTTE BLANCHARD MD, Ot K29.70 GASTRITIS, UNSPECIFIED, WITHOUT BLEEDING 02/21/2017 CHARLOTTE BLANCHARD MD, Ot K44.9 DIAPHRAGMATIC HERNIA WITHOUT OBSTRUCTION 02/21/2017 CHARLOTTE BLANCHARD MD Ot K82.4 CHOLESTEROLOSIS OF GALLBLADDER 02/21/2017 CHARLOTTE BLANCHARD MD, Ot M32.9 SYSTEMIC LUPUS ERYTHEMATOSUS, UNSPECIFIE 02/21/2017 CHARLOTTE BLANCHARD MD, Ot M79.1 MYALGIA 02/21/2017 CHARLOTTE BLANCHARD MD, Ot Z11.2 ENCOUNTER FOR SCREENING FOR OTHER BACTER 02/21/2017 CHARLOTTE BLANCHARD MD, Ot Z79.89 9 OTHER SENIOR CARE (CURRENT) DRUG THERAPY 02/24/2017 GEORGIA PALMERIN L TRACK WELDER Ot R10.11 RIGHT UPPER QUADRANT PAIN 03/06/2017 GEORGIA PALMERIN L TRACK WELDER Ot R10.11 RIGHT UPPER QUADRANT PAIN 06/14/2017 AVELINO MARQUES DO Ot F17.210 NICOTINE DEPENDENCE, CIGARETTES, UNCOMPL 06/14/2017 AVELINO MARQUES DO Ot F32.9 MAJOR DEPRESSIVE DISORDER, SINGLE EPISOD 06/14/2017 AVELINO MARQUES DO Ot G40.909 EPILEPSY, UNSP, NOT INTRACTABLE, WITHOUT 06/14/2017 AVELINO MARQUES DO Geri Ot K21.9 GASTRO-ESOPHAGEAL REFLUX DISEASE WITHOUT 06/14/2017 JERALD AVELINO Geri Ot K59.00 CONSTIPATION, UNSPECIFIED 06/14/2017 JERALD DO AVELINO Geri Ot M19.90 UNSPECIFIED OSTEOARTHRITIS, UNSPECIFIED 06/14/2017 JERALD HERNANDEZ AVELINO Geri Ot Z82.49 FAMILY HX OF ISCHEM HEART DIS AND OTH DI 06/14/2017 JERALD HERNANDEZ AVELINO Geri Ot Z87.09 PERSONAL HISTORY OF OTHER DISEASES OF TH 06/14/2017 AVELINO MARQUES DO Geri Ot Z87.19 PERSONAL HISTORY OF OTHER DISEASES OF TH 06/14/2017 JERALD HERNANDEZ AVELINO Geri Ot Z87.440 PERSONAL HISTORY OF URINARY (TRACT) INFE 06/14/2017 JERALD DO AVELINO Geri Ot Z87.442 PERSONAL HISTORY OF URINARY CALCULI 06/14/2017 JERALD HERNANDEZ AVELINO Geri Ot Z90.49 ACQUIRED ABSENCE OF OTHER SPECIFIED PART 06/14/2017 JERALD DO AVELINO Geri Ot Z90.710 ACQUIRED ABSENCE OF BOTH CERVIX AND UTER 06/14/2017 Ot 959.8 INJU RY NURSING SERVICES MANAGER SITE/SITE NEC 06/14/2017 Ot E000.8 OTH ER EXTERNAL CAUSE STATUS 06/14/2017 Ot E819.9 TRA FFIC ACC NOS- PERS NOS 06/14/2017 DILMA FRASER, ELIZA Grace Ot V72.84 EXAM PRE-OPERATIVE NOS 06/14/2017 VICKY PALMER TRACK WELDER Ot R10.11 RIGHT UPPER QUADRANT PAIN 06/14/2017 VICKY PALMER TRACK WELDER Ot R10.11 RIGHT UPPER QUADRANT PAIN 06/16/2017 JERALD HERNANDEZ AVELINO Geri Ot F17.210 NICOTINE DEPENDENCE, CIGARETTES, UNCOMPL 06/16/2017 JERALD HERNANDEZ AVELINO Geri Ot F32.9 MAJOR DEPRESSIVE DISORDER, SINGLE EPISOD 06/16/2017 AVELINO MARQUES DO Ot G40.909 EPILEPSY, UNSP, NOT INTRACTABLE, WITHOUT 06/16/2017 JERALD HERNANDEZ AVELINO Geri Ot K21.9 GASTRO-ESOPHAGEAL REFLUX DISEASE WITHOUT 06/16/2017 JERALD HERNANDEZ AVELINO Geri Ot K59.00 CONSTIPATION, UNSPECIFIED 06/16/2017 JERALD HERNANDEZ AVELINO K Ot M19.90 UNSPECIFIED OSTEOARTHRITIS, UNSPECIFIED 06/16/2017 AVELINO MARQUES DO Geri Ot Z82.49 FAMILY HX OF ISCHEM HEART DIS AND OTH DI 06/16/2017 AVELINO MARQUES DO Ot Z87.09 PERSONAL HISTORY OF OTHER DISEASES OF 06/16/2017 AVELINO MARQUES DO Ot Z87.19 PERSONAL HISTORY OF OTHER DISEASES OF 06/16/2017 AVELINO MARQUES DO Ot Z87.440 PERSONAL HISTORY OF URINARY (TRACT) INFE 06/16/2017 AVELINO MARQUES DO Geri Ot Z87.442 PERSONAL HISTORY OF URINARY CALCULI 06/16/2017 AVELINO MARQUES DO Ot Z90.49 ACQUIRED ABSENCE OF OTHER SPECIFIED PART 06/16/2017 AVELINO MARQUES DO Geri Ot Z90.710 ACQUIRED ABSENCE OF BOTH CERVIX AND UTER 07/10/2018 VICKY PALMER L TRACK WELDER Ot R10.11 RIGHT UPPER QUADRANT PAIN 07/15/2018 TARAH CLEMENTS MD Ot R00. 2 PALPITATIONS 07/16/2018 TARAH CLEMENTS MD Ot R00. 2 PALPITATIONS 07/18/2018 TARAH CLEMENTS MD Ot R00. 2 PALPITATIONS 08/02/2018 DILMA FRASER, ELIZA M Ot V72.84 EXAM PRE-OPERATIVE NOS 08/02/2018 VICKY PALMER L TRACK WELDER Ot R10.11 RIGHT UPPER QUADRANT PAIN 08/02/2018 GEORGIA PALMERIN L TRACK WELDER Ot R10.11 RIGHT UPPER QUADRANT PAIN 08/02/2018 TARAH CLEMENTS MD Ot R00. 2 PALPITATIONS 08/03/2018 TARAH CLEMENTS MD Ot R00. 2 PALPITATIONS 08/06/2018 TARAH CLEMENTS MD Ot I08. 1 RHEUMATIC DISORDERS OF BOTH MITRAL AND T 08/06/2018 TARAH CLEMENTS MD Ot R00. 2 PALPITATIONS 08/20/2018 DILMA FRASER, ELIZA M Ot V72.84 EXAM PRE-OPERATIVE NOS 08/20/2018 VICKY PALMER L TRACK WELDER Ot R10.11 RIGHT UPPER QUADRANT PAIN 08/20/2018 VICKY PALMER L TRACK WELDER Ot R10.11 RIGHT UPPER QUADRANT PAIN 08/20/2018 TARAH CLEMENTS MD Ot I08. 1 RHEUMATIC DISORDERS OF BOTH MITRAL AND T 08/20/2018 TARAH CLEMENTS MD Ot R00. 2 PALPITATIONS 08/20/2018 TARAH CLEMENTS MD Ot R00. 2 PALPITATIONS 08/20/2018 TARAH CLEMENTS MD Ot I08. 1 RHEUMATIC DISORDERS OF BOTH MITRAL AND T 08/20/2018 TARAH CLEMENTS MD Ot R00. 2 PALPITATIONS 11/03/2018 KATHLEEN CANALES MD Ot F17.210 NICOTINE DEPENDENCE, CIGARETTES, UNCOMPL 11/03/2018 KATHLEEN CANALES MD Ot F32.9 MAJOR DEPRESSIVE DISORDER, SINGLE EPISOD 11/03/2018 KATHLEEN CANALES MD Ot G40.909 EPILEPSY, UNSP, NOT INTRACTABLE, WITHOUT 11/03/2018 KATHLEEN CANALES MD, Ot J02.9 ACUTE PHARYNGITIS, UNSPECIFIED 11/03/2018 KATHLEEN CANALES MD, Ot J10.1 FLU DUE TO [facility] IDENT INFLUENZA VIRUS W O 11/03/2018 KATHLEEN CANALES MD Ot K21.9 GASTRO-ESOPHAGEAL REFLUX DISEASE WITHOUT 11/03/2018 KATHLEEN CANALES MD, Ot K58.9 IRRITABLE BOWEL SYNDROME WITHOUT DIARRHE 11/03/2018 KATHLEEN CANALES MD, Ot M32.9 SYSTEMIC LUPUS ERYTHEMATOSUS, UNSPECIFIE 11/03/2018 KATHLEEN CANALES MD Ot Z82.49 FAMILY HX OF ISCHEM HEART DIS AND OTH DI 11/03/2018 KATHLEEN CANALES MD Ot Z87.01 PERSONAL HISTORY OF PNEUMONIA (RECURRENT 11/03/2018 KATHLEEN CANALES MD Ot Z87.09 PERSONAL HISTORY OF OTHER DISEASES OF TH 11/03/2018 KATHLEEN CANALES MD Ot Z87.19 PERSONAL HISTORY OF OTHER DISEASES OF TH 11/03/2018 KATHLEEN CANALES MD Ot Z87.440 PERSONAL HISTORY OF URINARY (TRACT) INFE 11/03/2018 KATHLEEN CANALES MD Ot Z87.442 PERSONAL HISTORY OF URINARY CALCULI 11/03/2018 KATHLEEN CANALES MD Ot Z87.448 PERSONAL HISTORY OF OTHER DISEASES OF UR 11/03/2018 KATHLEEN CANALES MD Ot Z88.5 ALLERGY STATUS TO NARCOTIC AGENT STATUS 11/03/2018 KATHLEEN CANALES MD, Ot Z88.8 ALLERGY STATUS TO OT DRUG/MEDS/BIOL SUB 11/03/2018 KATHLEEN CANALES MD, Ot Z90.49 ACQUIRED ABSENCE OF OTHER SPECIFIED PART 11/03/2018 KATHLEEN CANALES MD, Ot Z90.710 ACQUIRED ABSENCE OF BOTH CERVIX AND UTER 11/03/2018 KATHLEEN CANALES MD, Ot Z91.040 LATEX ALLERGY STATUS 11/03/2018 KATHLEEN CANALES MD, Ot Z91.041 RADIOGRAPHIC DYE ALLERGY STATUS 11/03/2018 KATHLEEN CANALES MD, Ot Z98.890 OTHER SPECIFIED POSTPROCEDURAL STATES 11/06/2018 KATHLEEN CANALES MD, Ot F17.210 NICOTINE DEPENDENCE, CIGARETTES, UNCOMPL 11/06/2018 KATHLEEN CANALES MD, Ot F32.9 MAJOR DEPRESSIVE DISORDER, SINGLE EPISOD 11/06/2018 KATHLEEN CANALES MD, Ot G40.909 EPILEPSY, UNSP, NOT INTRACTABLE, WITHOUT 11/06/2018 KATHLEEN CANALES MD, Ot J02.9 ACUTE PHARYNGITIS, UNSPECIFIED 11/06/2018 KATHLEEN CANALES MD, Ot J10.1 FLU DUE TO [facility] IDENT INFLUENZA VIRUS W O 11/06/2018 KATHLEEN CANALES MD, Ot K21.9 GASTRO-ESOPHAGEAL REFLUX DISEASE WITHOUT 11/06/2018 KATHLEEN CANALES MD, Ot K58.9 IRRITABLE BOWEL SYNDROME WITHOUT DIARRHE 11/06/2018 KATHLEEN CANALES MD, Ot M32.9 SYSTEMIC LUPUS ERYTHEMATOSUS, UNSPECIFIE 11/06/2018 KATHLEEN CANALES MD Ot Z82.49 FAMILY HX OF ISCHEM HEART DIS AND OTH DI 11/06/2018 KATHLEEN CANALES MD Ot Z87.01 PERSONAL HISTORY OF PNEUMONIA (RECURRENT 11/06/2018 KATHLEEN CANALES MD, Ot Z87.09 PERSONAL HISTORY OF OTHER DISEASES OF TH 11/06/2018 KATHLEEN CANALES MD, Ot Z87.19 PERSONAL HISTORY OF OTHER DISEASES OF TH 11/06/2018 KATHLEEN CANALES MD, Ot Z87.440 PERSONAL HISTORY OF URINARY (TRACT) INFE 11/06/2018 KATHLEEN CANALES MD, Ot Z87.442 PERSONAL HISTORY OF URINARY CALCULI 11/06/2018 KATHLEEN CANALES MD, Ot Z87.448 PERSONAL HISTORY OF OTHER DISEASES OF UR 11/06/2018 KATHLEEN CANALES MD, Ot Z88.5 ALLERGY STATUS TO NARCOTIC AGENT STATUS 11/06/2018 KATHLEEN CANALES MD, Ot Z88.8 ALLERGY STATUS TO OTH DRUG/MEDS/BIOL SUB 11/06/2018 KATHLEEN CANALES MD, Ot Z90.49 ACQUIRED ABSENCE OF OTHER SPECIFIED PART 11/06/2018 KATHLEEN CANALES MD Ot Z90.710 ACQUIRED ABSENCE OF BOTH CERVIX AND UTER 11/06/2018 KATHLEEN CANALES MD Ot Z91.040 LATEX ALLERGY STATUS 11/06/2018 KATHLEEN CANALES MD, Ot Z91.041 RADIOGRAPHIC DYE ALLERGY STATUS 11/06/2018 KATHLEEN CANALES MD Ot Z98.890 OTHER SPECIFIED POSTPROCEDURAL STATES 06/17/2019 JAZLYN LIEBERMAN APRN Ot F17.210 NICOTINE DEPENDENCE, CIGARETTES, UNCOMPL 06/17/2019 JAZLYN LIEBERMAN APRN Ot F32 .9 MAJOR DEPRESSIVE DISORDER, SINGLE EPISOD 06/17/2019 JAZLYN LIEBERMAN APRN Ot G40.909 EPILEPSY, UNSP, NOT INTRACTABLE, WITHOUT 06/17/2019 JAZLYN LIEBERMAN APRN Ot I10 ESSENTIAL (PRIMARY) HYPERTENSION 06/17/2019 JAZLYN LIEBERMAN APRN Ot J42 UNSPECIFIED CHRONIC BRONCHITIS 06/17/2019 JAZLYN LIEBERMAN APRN Ot K21 .9 GASTRO-ESOPHAGEAL REFLUX DISEASE WITHOUT 06/17/2019 JAZLYN LIEBERMAN APRN Ot K58 .9 IRRITABLE BOWEL SYNDROME WITHOUT DIARRHE 06/17/2019 JAZLYN LIEBERMAN APRN Ot M32 .9 SYSTEMIC LUPUS ERYTHEMATOSUS, UNSPECIFIE 06/17/2019 JAZLYN LIEBERMAN APRN Ot M54.16 RADICULOPATHY, LUMBAR REGION 06/17/2019 JAZLYN LIEBERMAN APRN Ot M54 .5 LOW BACK PAIN 06/17/2019 JAZLYN LIEBERMAN APRN Ot M79 .7 FIBROMYALGIA 06/17/2019 JAZLYN LIEBERMAN APRN Ot Z82.49 FAMILY HX OF ISCHEM HEART DIS AND OTH DI 06/17/2019 JAZLYN LIEBERMAN APRN Ot Z87.01 PERSONAL HISTORY OF PNEUMONIA (RECURRENT 06/17/2019 JAZLYN LIEBERMAN APRN Ot Z87.440 PERSONAL HISTORY OF URINARY (TRACT) INFE 06/17/2019 JAZLYN LIEBERMAN APRN Ot Z88 .5 ALLERGY STATUS TO NARCOTIC AGENT STATUS 06/17/2019 JAZLYN LIEBERMAN APRN Ot Z90.49 ACQUIRED ABSENCE OF OTHER SPECIFIED PART 06/17/2019 JAZLYN LIEBERMAN APRN Ot Z90.710 ACQUIRED ABSENCE OF BOTH CERVIX AND UTER 06/17/2019 JAZLYN LIEBERMAN APRN Ot Z91.040 LATEX ALLERGY STATUS 06/17/2019 JAZLYN LIEBERMAN APRN Ot Z91.041 RADIOGRAPHIC DYE ALLERGY STATUS 06/26/2019 VICKY PALMER TRACK WELDER Ot R10.11 RIGHT UPPER QUADRANT PAIN 06/26/2019 GEORGIA PALMERIN L TRACK WELDER Ot R10.11 RIGHT UPPER QUADRANT PAIN 06/26/2019 TARAH CLEMENTS MD Ot I08. 1 RHEUMATIC DISORDERS OF BOTH MITRAL AND T 06/26/2019 TARAH CLEMENTS MD Ot R00. 2 PALPITATIONS 06/26/2019 TARAH CLEMENTS MD Ot R00. 2 PALPITATIONS 06/27/2019 KATHLEEN CANALES MD Ot F17.210 NICOTINE DEPENDENCE, CIGARETTES, UNCOMPL 06/27/2019 KATHLEEN CANALES MD, Ot F32.9 MAJOR DEPRESSIVE DISORDER, SINGLE EPISOD 06/27/2019 KATHLEEN CANALES MD, Ot G40.909 EPILEPSY, UNSP, NOT INTRACTABLE, WITHOUT 06/27/2019 KATHLEEN CANALES MD, Ot J02.9 ACUTE PHARYNGITIS, UNSPECIFIED 06/27/2019 KATHLEEN CANALES MD, Ot J10.1 FLU DUE TO [facility] IDENT INFLUENZA VIRUS W O 06/27/2019 KATHLEEN CANALES MD, Ot K21.9 GASTRO-ESOPHAGEAL REFLUX DISEASE WITHOUT 06/27/2019 KATHLEEN CANALES MD, Ot K58.9 IRRITABLE BOWEL SYNDROME WITHOUT DIARRHE 06/27/2019 KATHLEEN CANALES MD, Ot M32.9 SYSTEMIC LUPUS ERYTHEMATOSUS, UNSPECIFIE 06/27/2019 KATHLEEN CANALES MD, Ot Z82.49 FAMILY HX OF ISCHEM HEART DIS AND OTH DI 06/27/2019 KATHLEEN CANALES MD, Ot Z87.01 PERSONAL HISTORY OF PNEUMONIA (RECURRENT 06/27/2019 KATHLEEN CANALES MD Ot Z87.09 PERSONAL HISTORY OF OTHER DISEASES OF TH 06/27/2019 KATHLEEN CANALES MD, Ot Z87.19 PERSONAL HISTORY OF OTHER DISEASES OF TH 06/27/2019 KATHLEEN CANALES MD, Ot Z87.440 PERSONAL HISTORY OF URINARY (TRACT) INFE 06/27/2019 KATHLEEN CANALES MD Ot Z87.442 PERSONAL HISTORY OF URINARY CALCULI 06/27/2019 KATHLEEN CANALES MD, Ot Z87.448 PERSONAL HISTORY OF OTHER DISEASES OF UR 06/27/2019 KATHLEEN CANALES MD, Ot Z88.5 ALLERGY STATUS TO NARCOTIC AGENT STATUS 06/27/2019 KATHLEEN CANALES MD, Ot Z88.8 ALLERGY STATUS TO OTH DRUG/MEDS/BIOL SUB 06/27/2019 KATHLEEN CANALES MD, Ot Z90.49 ACQUIRED ABSENCE OF OTHER SPECIFIED PART 06/27/2019 KATHLEEN CANALES MD Ot Z90.710 ACQUIRED ABSENCE OF BOTH CERVIX AND UTER 06/27/2019 KATHLEEN CANALES MD Ot Z91.040 LATEX ALLERGY STATUS 06/27/2019 KATHLEEN CANALES MD, Ot Z91.041 RADIOGRAPHIC DYE ALLERGY STATUS 06/27/2019 KATHLEEN CANALES MD Ot Z98.890 OTHER SPECIFIED POSTPROCEDURAL STATES 06/28/2019 DAMIAN RENDON TRACK WELDER Ot M48.061 SPINAL STENOSIS, LUMBAR REGION WITHOUT N 06/28/2019 DAMIAN RENDON TRACK WELDER Ot M51.16 INTERVERTEBRAL DISC DISORDERS W RADICULO 07/16/2019 DAMIAN RENDON TRACK WELDER Ot M48.061 SPINAL STENOSIS, LUMBAR REGION WITHOUT N 07/16/2019 DOROTHY RENDONTA Chante TRACK WELDER Ot M51.16 INTERVERTEBRAL DISC DISORDERS W RADICULO 07/17/2019 DOROTHY RENDONTA Chante TRACK WELDER Ot M48.061 SPINAL STENOSIS, LUMBAR REGION WITHOUT N 07/17/2019 DOROTHY RENDONTA Chante TRACK WELDER Ot M51.16 INTERVERTEBRAL DISC DISORDERS W RADICULO 07/26/2019 DOROTHY RENDONTA Chante TRACK WELDER Ot M48.061 SPINAL STENOSIS, LUMBAR REGION WITHOUT N 07/26/2019 JUSTICEDOROTHYTA D TRACK WELDER Ot M51.16 INTERVERTEBRAL DISC DISORDERS W RADICULO 09/30/2019 VICKY PALMER TRACK WELDER Ot R10.11 RIGHT UPPER QUADRANT PAIN 09/30/2019 SPENCERGEORGIAIN L TRACK WELDER Ot R10.11 RIGHT UPPER QUADRANT PAIN 09/30/2019 TARAH CLEMENTS MD Ot I08. 1 RHEUMATIC DISORDERS OF BOTH MITRAL AND T 09/30/2019 TARAH CLEMENTS MD Ot R00. 2 PALPITATIONS 09/30/2019 TARAH CLEMENTS MD Ot R00. 2 PALPITATIONS 09/30/2019 DAMIAN RENDON TRACK WELDER Ot M48.061 SPINAL STENOSIS, LUMBAR REGION WITHOUT N 09/30/2019 DAMIAN RENDON TRACK WELDER Ot M51.16 INTERVERTEBRAL DISC DISORDERS W RADICULO 09/30/2019 SPENCER, VICKY L TRACK WELDER Ot R10.11 RIGHT UPPER QUADRANT PAIN 09/30/2019 GEORGIA PALMERIN Scto TRACK WELDER Ot R10.11 RIGHT UPPER QUADRANT PAIN 09/30/2019 TARAH CLEMENTS MD Ot I08. 1 RHEUMATIC DISORDERS OF BOTH MITRAL AND T 09/30/2019 TARAH CLEMENTS MD Ot R00. 2 PALPITATIONS 09/30/2019 TARAH CLEMENTS MD Ot R00. 2 PALPITATIONS 09/30/2019 DAMIAN RENDON TRACK WELDER Ot M48.061 SPINAL STENOSIS, LUMBAR REGION WITHOUT N 09/30/2019 DAMIAN RENDON TRACK WELDER Ot M51.16 INTERVERTEBRAL DISC DISORDERS W RADICULO 09/30/2019 JAZLYN LIEBERMAN APRN Ot F32 .9 MAJOR DEPRESSIVE DISORDER, SINGLE EPISOD 09/30/2019 JAZLYN LIEBERMAN APRN Ot G40.909 EPILEPSY, UNSP, NOT INTRACTABLE, WITHOUT 09/30/2019 JAZLYN LIEBERMAN APRN Ot I10 ESSENTIAL (PRIMARY) HYPERTENSION 09/30/2019 JAZLYN LIEBERMAN APRN Ot K21 .9 GASTRO-ESOPHAGEAL REFLUX DISEASE WITHOUT 09/30/2019 JAZLYN LIEBERMAN APRN Ot K58 .9 IRRITABLE BOWEL SYNDROME WITHOUT DIARRHE 09/30/2019 JAZLYN LIEBERMAN APRN Ot M79 .7 FIBROMYALGIA 09/30/2019 JAZLYN LIEBERMAN APRN Ot R07.81 PLEURODYNIA 09/30/2019 JAZLYN LIEBERMAN APRN Ot R07 .9 CHEST PAIN, UNSPECIFIED 09/30/2019 JAZLYN LIEBERMAN APRN Ot Z77.22 CNTCT W AND EXPSR TO ENVIRON TOBACCO SMO 09/30/2019 JAZLYN LIEBERMAN APRN Ot Z79.52 SENIOR CARE (CURRENT) USE OF SYSTEMIC STER 09/30/2019 JAZLYN LIEBERMAN APRN Ot Z82.49 FAMILY HX OF ISCHEM HEART DIS AND OTH DI 09/30/2019 JAZLYN LIEBERMAN APRN Ot Z87.39 PERSONAL HISTORY OF DISEASES OF THE MS S 09/30/2019 JAZLYN LIEBERMAN APRN Ot Z87.440 PERSONAL HISTORY OF URINARY (TRACT) INFE 09/30/2019 JAZLYN LIEBERMAN APRN Ot Z87.442 PERSONAL HISTORY OF URINARY CALCULI 09/30/2019 JAZLYN LIEBERMAN APRN Ot Z88 .5 ALLERGY STATUS TO NARCOTIC AGENT STATUS 09/30/2019 JAZLYN LIEBERMAN APRN Ot Z90.49 ACQUIRED ABSENCE OF OTHER SPECIFIED PART 09/30/2019 JAZLYN LIEBERMAN APRN Ot Z90.710 ACQUIRED ABSENCE OF BOTH CERVIX AND UTER 09/30/2019 JAZLYN LIEBERMAN APRN Ot Z90.722 ACQUIRED ABSENCE OF OVARIES, BILATERAL 09/30/2019 JAZLYN LIEBERMAN APRN Ot Z91.040 LATEX ALLERGY STATUS 09/30/2019 JAZLYN LIEBERMAN APRN Ot Z91.041 RADIOGRAPHIC DYE ALLERGY STATUS 10/03/2019 JAZLYN LIEBERMAN APRN Ot F32 .9 MAJOR DEPRESSIVE DISORDER, SINGLE EPISOD 10/03/2019 JAZLYN LIEBERMAN APRN Ot G40.909 EPILEPSY, UNSP, NOT INTRACTABLE, WITHOUT 10/03/2019 JAZLYN LIEBERMAN APRN Ot I10 ESSENTIAL (PRIMARY) HYPERTENSION 10/03/2019 JAZLNY LIEBERMAN APRN Ot K21 .9 GASTRO-ESOPHAGEAL REFLUX DISEASE WITHOUT 10/03/2019 JAZLYN LIEBERMAN APRN Ot K58 .9 IRRITABLE BOWEL SYNDROME WITHOUT DIARRHE 10/03/2019 JAZLYN LIEBERMAN APRN Ot M79 .7 FIBROMYALGIA 10/03/2019 JAZLYN LIEBERMAN APRN Ot R07.81 PLEURODYNIA 10/03/2019 JAZLYN LIEBERMAN APRN Ot R07 .9 CHEST PAIN, UNSPECIFIED 10/03/2019 JAZLYN LIEBERMAN APRN Ot Z77.22 CNTCT W AND EXPSR TO ENVIRON TOBACCO SMO 10/03/2019 JAZLYN LIEBERMAN APRN Ot Z79.52 SENIOR CARE (CURRENT) USE OF SYSTEMIC STER 10/03/2019 JAZLYN LIEBERMAN TRACK WELDER Ot Z82.49 FAMILY HX OF ISCHEM HEART DIS AND OTH DI 10/03/2019 JAZLYN LIEBERMAN APRN Ot Z87.39 PERSONAL HISTORY OF DISEASES OF THE MS S 10/03/2019 JAZLYN LIEBERMAN APRN Ot Z87.440 PERSONAL HISTORY OF URINARY (TRACT) INFE 10/03/2019 JAZLYN LIEBERMAN APRN Ot Z87.442 PERSONAL HISTORY OF URINARY CALCULI 10/03/2019 JAZLYN LIEBERMAN APRN Ot Z88 .5 ALLERGY STATUS TO NARCOTIC AGENT STATUS 10/03/2019 JAZLYN LIEBERMAN APRN Ot Z90.49 ACQUIRED ABSENCE OF OTHER SPECIFIED PART 10/03/2019 JAZLYN LIEBERMAN APRN Ot Z90.710 ACQUIRED ABSENCE OF BOTH CERVIX AND UTER 10/03/2019 JAZLYN LIEBERMAN APRN Ot Z90.722 ACQUIRED ABSENCE OF OVARIES, BILATERAL 10/03/2019 JAZLYN LIEBERMAN APRN Ot Z91.040 LATEX ALLERGY STATUS 10/03/2019 JAZLYN LIEBERMAN APRN Ot Z91.041 RADIOGRAPHIC DYE ALLERGY STATUS Procedures There is no data. Results Test Result Range Methicillin resistant Staphylococcus aur eus (MRSA) screening culture - 02/20/17 12:55 Methicillin resistant Staphylococcus aureus (MRSA) scr eening culture NEG NRG Complete urinalysis with reflex to cultu re - 06/14/17 19:12 Urine color determination YELLOW NRG Urine clarity determination CLEAR NR G Urine pH measurement by test strip 7 5-9 Specific gravity of urine by test strip 1.015 1.016-1.022 Urine protein assay by test strip, semi-quantitative NEGATIVE NEGATIVE Urine glucose detection by automated test strip NE GATIVE NEGATIVE Erythrocytes detection in urine sediment by light micr oscopy NEGATIVE NEGATIVE Urine ketones detection by automated test strip NE GATIVE NEGATIVE Urine nitrite detection by test strip NEGATIVE NEGATIVE Urine total bilirubin detection by test strip NEGA TIVE NEGATIVE Urine urobilinogen measurement by automated test strip (mass/volume) NORMAL NORMAL Urine leukocyte esterase detection by dipstick 2+ NEGATIVE Automated urine sediment erythrocyte cou nt by microscopy (number/high power field) NONE NRG Automated urine sediment leukocyte count by microscopy (number/high power field) [HPF] NRG Bacteria detection in urine sediment by light microsco py NEGATIVE NRG Squamous epithelial cells detection in u rine sediment by light microscopy 5-10 NRG Crystals detection in urine sediment by light microsco py NONE NRG Casts detection in urine sediment by light microscopy NONE NRG Mucus detection in urine sediment by light microscopy NEGATIVE NRG Complete urinalysis with reflex to culture NO NRG Complete blood count (CBC) with automate d white blood cell (WBC) differential - 06/14/17 19:23 Blood leukocytes automated count (number/volume) 8.6 10*3/uL 4.3-11.0 Blood erythrocytes automated count (number/volume) 4.80 10*6/uL 4.35-5.85 Venous blood hemoglobin measurement (mass/volume) 14.2 g/dL 11.5-16.0 Blood hematocrit (volume fraction) 43 % 35-52 Automated erythrocyte mean corpuscular volume 90 [ foz_us] 80-99 Automated erythrocyte mean corpuscular h emoglobin (mass per erythrocyte) 30 pg 25-34 Automated erythrocyte mean corpuscular h emoglobin concentration measurement (mass/volume) 33 g/dL 32-36 Automated erythrocyte distribution width ratio 12. 7 % 10.0- 14.5 Automated blood platelet count (count/volume) 209 10*3/uL 130-400 Automated blood platelet mean volume measurement 11.6 [foz_us] 7.4-10.4 Automated blood neutrophils/100 leukocytes 53 % 42-75 Automated blood lymphocytes/100 leukocytes 36 % 12-44 Blood monocytes/100 leukocytes 8 % 0-12 Automated blood eosinophils/100 leukocytes 3 % 0-10 Automated blood basophils/100 leukocytes 1 % 0-10 Blood neutrophils automated count (number/volume) 4.6 10*3 1.8-7.8 Blood lymphocytes automated count (number/volume) 3.1 10*3 1.0-4.0 Blood monocytes automated count (number/volume) 0. 6 10*3 0.0-1.0 Automated eosinophil count 0.2 10*3/uL 0 .0-0.3 Automated blood basophil count (count/volume) 0.1 10*3/uL 0.0-0.1 Comprehensive metabolic panel - 06/14/17 19:23 Serum or plasma sodium measurement (moles/volume) 145 mmol/L 135-145 Serum or plasma potassium measurement (moles/volume) 3.4 mmol/L 3.6-5.0 Serum or plasma chloride measurement (moles/volume) 108 mmol/L 98-107 Carbon dioxide 24 mmol/L 21-32 Serum or plasma anion gap determination (moles/volume) 13 mmol/L 5-14 Serum or plasma urea nitrogen measurement (mass/volume ) 18 mg/dL 7-18 Serum or plasma creatinine measurement (mass/volume) 0.81 mg/dL 0.60-1.30 Serum or plasma urea nitrogen/creatinine mass ratio 22 NRG Serum or plasma creatinine measurement w ith calculation of estimated glomerular filtration rate > NRG Serum or plasma glucose measurement (mass/volume) 109 mg/dL 70-105 Serum or plasma calcium measurement (mass/volume) 9.0 mg/dL 8.5-10.1 Serum or plasma total bilirubin measurement (mass/volu me) 0.2 mg/dL 0.1-1.0 Serum or plasma alkaline phosphatase tin surement (enzymatic activity/volume) 67 U/L 40-136 Serum or plasma aspartate aminotransfera se measurement (enzymatic activity/volume) 18 U/L 5-34 Serum or plasma alanine aminotransferase measurement (enzymatic activity/volume) 15 U/L 0-55 Serum or plasma protein measurement (mass/volume) 6.9 g/dL 6.4-8.2 Serum or plasma albumin measurement (mass/volume) 4.1 g/dL 3.2-4.5 Serum or plasma amylase measurement (enz ymatic activity/volume) - 06/14/17 19:23 Serum or plasma amylase measurement (enzymatic activit y/volume) 97 U/L 25-125 Lipase - 06/14/17 19:23 Lipase 34 U/L 8-78 CULTURE, GENITAL - 10/25/17 13:09 CULTURE, GENITAL SEE NOTE NR SUREPATH PAP RFX HPV mRNA E6/E7 - 13:09 CLINICAL INFORMATION: NRG LMP: HY NRG PREV. PAP: ABNORMAL NRG PREV. BX: NRG SOURCE: Vagina NR STATEMENT OF ADEQUACY: NR INTERPRETATION/RESULT: NR BOLT HEADER: NRG INFECTION: NRG GENERAL CATEGORIZATION: NRG PATHOLOGIST: NR CULTURE, GENITAL - 01/12/18 11:25 CULTURE, GENITAL SEE NOTE NRG Influenza virus A and B antigen detectio n - 11/03/18 02:51 FLU RESULT NEGATIVE FOR INFLUENZA A AND B ANTIGENS BY IA NR Complete blood count (CBC) with automate d white blood cell (WBC) differential - 11/03/18 03:28 Blood leukocytes automated count (number/volume) 11.6 10*3/uL 4.3-11.0 Blood erythrocytes automated count (number/volume) 4.55 10*6/uL 4.35-5.85 Venous blood hemoglobin measurement (mass/volume) 13.2 g/dL 11.5-16.0 Blood hematocrit (volume fraction) 40 % 35-52 Automated erythrocyte mean corpuscular volume 89 [ foz_us] 80-99 Automated erythrocyte mean corpuscular h emoglobin (mass per erythrocyte) 29 pg 25-34 Automated erythrocyte mean corpuscular h emoglobin concentration measurement (mass/volume) 33 g/dL 32-36 Automated erythrocyte distribution width ratio 13. 0 % 10.0- 14.5 Automated blood platelet count (count/volume) 149 10*3/uL 130-400 Automated blood platelet mean volume measurement 11.4 [foz_us] 7.4-10.4 Automated blood neutrophils/100 leukocytes 74 % 42-75 Automated blood lymphocytes/100 leukocytes 15 % 12-44 Blood monocytes/100 leukocytes 11 % 0-12 Automated blood eosinophils/100 leukocytes 1 % 0-10 Automated blood basophils/100 leukocytes 0 % 0-10 Blood neutrophils automated count (number/volume) 8.5 10*3 1.8-7.8 Blood lymphocytes automated count (number/volume) 1.7 10*3 1.0-4.0 Blood monocytes automated count (number/volume) 1. 2 10*3 0.0-1.0 Automated eosinophil count 0.1 10*3/uL 0 .0-0.3 Automated blood basophil count (count/volume) 0.0 10*3/uL 0.0-0.1 Comprehensive metabolic panel - 11/03/18 03:28 Serum or plasma sodium measurement (moles/volume) 142 mmol/L 135-145 Serum or plasma potassium measurement (moles/volume) 3.6 mmol/L 3.6-5.0 Serum or plasma chloride measurement (moles/volume) 107 mmol/L 98-107 Carbon dioxide 25 mmol/L 21-32 Serum or plasma anion gap determination (moles/volume) 10 mmol/L 5-14 Serum or plasma urea nitrogen measurement (mass/volume ) 11 mg/dL 7-18 Serum or plasma creatinine measurement (mass/volume) 0.75 mg/dL 0.60-1.30 Serum or plasma urea nitrogen/creatinine mass ratio 15 NRG Serum or plasma creatinine measurement w ith calculation of estimated glomerular filtration rate > NRG Serum or plasma glucose measurement (mass/volume) 99 mg/dL 70-105 Serum or plasma calcium measurement (mass/volume) 8.9 mg/dL 8.5-10.1 Serum or plasma total bilirubin measurement (mass/volu me) 0.4 mg/dL 0.1-1.0 Serum or plasma alkaline phosphatase tin surement (enzymatic activity/volume) 75 U/L 40-136 Serum or plasma aspartate aminotransfera se measurement (enzymatic activity/volume) 43 U/L 5-34 Serum or plasma alanine aminotransferase measurement (enzymatic activity/volume) 50 U/L 0-55 Serum or plasma protein measurement (mass/volume) 6.6 g/dL 6.4-8.2 Serum or plasma albumin measurement (mass/volume) 3.8 g/dL 3.2-4.5 CALCIUM CORRECTED 9.1 mg/dL 8.5-10.1 Serum or plasma C reactive protein measu rement (mass/volume) - 11/03/18 03:28 Serum or plasma C reactive protein measurement (mass/v olume) 6.51 mg/dL 0.00-0.50 Complete urinalysis with reflex to cultu re - 11/03/18 04:15 Urine color determination YELLOW NRG Urine clarity determination SLIGHTLY CLOUDY NRG Urine pH measurement by test strip 6.5 5-9 Specific gravity of urine by test strip 1.015 1.016-1.022 Urine protein assay by test strip, semi-quantitative NEGATIVE NEGATIVE Urine glucose detection by automated test strip NE GATIVE NEGATIVE Erythrocytes detection in urine sediment by light micr oscopy NEGATIVE NEGATIVE Urine ketones detection by automated test strip NE GATIVE NEGATIVE Urine nitrite detection by test strip NEGATIVE NEGATIVE Urine total bilirubin detection by test strip NEGA TIVE NEGATIVE Urine urobilinogen measurement by automated test strip (mass/volume) NORMAL NORMAL Urine leukocyte esterase detection by dipstick 1+ NEGATIVE Automated urine sediment erythrocyte cou nt by microscopy (number/high power field) NONE NRG Automated urine sediment leukocyte count by microscopy (number/high power field) RARE NRG Bacteria detection in urine sediment by light microsco py TRACE NRG Squamous epithelial cells detection in u rine sediment by light microscopy 10-25 NRG Crystals detection in urine sediment by light microsco py NONE NRG Casts detection in urine sediment by light microscopy NONE NRG Mucus detection in urine sediment by light microscopy NEGATIVE NRG Complete urinalysis with reflex to culture NO NRG Streptococcus pyogenes antigen detection - 11/03/18 04:33 Streptococcus pyogenes antigen detection NEGATIVE NEGATIVE Bacterial throat culture - 11/03/18 04:3 3 Bacterial throat culture NBS NRG Complete urinalysis with reflex to cultu re - 06/17/19 16:39 Urine color determination YELLOW NRG Urine clarity determination CLEAR NR G Urine pH measurement by test strip 6 5-9 Specific gravity of urine by test strip 1.025 1.016-1.022 Urine protein assay by test strip, semi-quantitative 1+ NEGATIVE Urine glucose detection by automated test strip NE GATIVE NEGATIVE Erythrocytes detection in urine sediment by light micr oscopy NEGATIVE NEGATIVE Urine ketones detection by automated test strip NE GATIVE NEGATIVE Urine nitrite detection by test strip NEGATIVE NEGATIVE Urine total bilirubin detection by test strip NEGA TIVE NEGATIVE Urine urobilinogen measurement by automated test strip (mass/volume) NORMAL NORMAL Urine leukocyte esterase detection by dipstick 1+ NEGATIVE Automated urine sediment erythrocyte cou nt by microscopy (number/high power field) RARE NRG Automated urine sediment leukocyte count by microscopy (number/high power field) [HPF] NRG Bacteria detection in urine sediment by light microsco py NEGATIVE NRG Squamous epithelial cells detection in u rine sediment by light microscopy 2-5 NRG Crystals detection in urine sediment by light microsco py NONE NRG Casts detection in urine sediment by light microscopy NONE NRG Mucus detection in urine sediment by light microscopy SMALL NRG Complete urinalysis with reflex to culture NO NRG Complete blood count (CBC) with automate d white blood cell (WBC) differential - 06/17/19 16:50 Blood leukocytes automated count (number/volume) 8.8 10*3/uL 4.3-11.0 Blood erythrocytes automated count (number/volume) 4.74 10*6/uL 4.35-5.85 Venous blood hemoglobin measurement (mass/volume) 14.1 g/dL 11.5-16.0 Blood hematocrit (volume fraction) 42 % 35-52 Automated erythrocyte mean corpuscular volume 88 [ foz_us] 80-99 Automated erythrocyte mean corpuscular h emoglobin (mass per erythrocyte) 30 pg 25-34 Automated erythrocyte mean corpuscular h emoglobin concentration measurement (mass/volume) 34 g/dL 32-36 Automated erythrocyte distribution width ratio 12. 8 % 10.0- 14.5 Automated blood platelet count (count/volume) 234 10*3/uL 130-400 Automated blood platelet mean volume measurement 11.2 [foz_us] 7.4-10.4 Automated blood neutrophils/100 leukocytes 53 % 42-75 Automated blood lymphocytes/100 leukocytes 36 % 12-44 Blood monocytes/100 leukocytes 7 % 0-12 Automated blood eosinophils/100 leukocytes 3 % 0-10 Automated blood basophils/100 leukocytes 1 % 0-10 Blood neutrophils automated count (number/volume) 4.6 10*3 1.8-7.8 Blood lymphocytes automated count (number/volume) 3.2 10*3 1.0-4.0 Blood monocytes automated count (number/volume) 0. 6 10*3 0.0-1.0 Automated eosinophil count 0.3 10*3/uL 0 .0-0.3 Automated blood basophil count (count/volume) 0.0 10*3/uL 0.0-0.1 Comprehensive metabolic panel - 06/17/19 16:50 Serum or plasma sodium measurement (moles/volume) 145 mmol/L 135-145 Serum or plasma potassium measurement (moles/volume) 3.5 mmol/L 3.6-5.0 Serum or plasma chloride measurement (moles/volume) 110 mmol/L 98-107 Carbon dioxide 25 mmol/L 21-32 Serum or plasma anion gap determination (moles/volume) 10 mmol/L 5-14 Serum or plasma urea nitrogen measurement (mass/volume ) 12 mg/dL 7-18 Serum or plasma creatinine measurement (mass/volume) 0.87 mg/dL 0.60-1.30 Serum or plasma urea nitrogen/creatinine mass ratio 14 NRG Serum or plasma creatinine measurement w ith calculation of estimated glomerular filtration rate > NRG Serum or plasma glucose measurement (mass/volume) 124 mg/dL 70-105 Serum or plasma calcium measurement (mass/volume) 8.7 mg/dL 8.5-10.1 Serum or plasma total bilirubin measurement (mass/volu me) 0.3 mg/dL 0.1-1.0 Serum or plasma alkaline phosphatase tin surement (enzymatic activity/volume) 70 U/L 40-136 Serum or plasma aspartate aminotransfera se measurement (enzymatic activity/volume) 20 U/L 5-34 Serum or plasma alanine aminotransferase measurement (enzymatic activity/volume) 19 U/L 0-55 Serum or plasma protein measurement (mass/volume) 6.8 g/dL 6.4-8.2 Serum or plasma albumin measurement (mass/volume) 4.2 g/dL 3.2-4.5 CALCIUM CORRECTED 8.5 mg/dL 8.5-10.1 Serum or plasma C reactive protein measu rement (mass/volume) - 06/17/19 16:50 Serum or plasma C reactive protein measurement (mass/v olume) 0.18 mg/dL 0.00-0.50 Complete blood count (CBC) with automate d white blood cell (WBC) differential - 09/30/19 13:35 Blood leukocytes automated count (number/volume) 6.8 10*3/uL 4.3-11.0 Blood erythrocytes automated count (number/volume) 4.94 10*6/uL 4.35-5.85 Venous blood hemoglobin measurement (mass/volume) 14.5 g/dL 11.5-16.0 Blood hematocrit (volume fraction) 43 % 35-52 Automated erythrocyte mean corpuscular volume 88 [ foz_us] 80-99 Automated erythrocyte mean corpuscular h emoglobin (mass per erythrocyte) 29 pg 25-34 Automated erythrocyte mean corpuscular h emoglobin concentration measurement (mass/volume) 33 g/dL 32-36 Automated erythrocyte distribution width ratio 12. 6 % 10.0- 14.5 Automated blood platelet count (count/volume) 224 10*3/uL 130-400 Automated blood platelet mean volume measurement 11.4 [foz_us] 7.4-10.4 Automated blood neutrophils/100 leukocytes 50 % 42-75 Automated blood lymphocytes/100 leukocytes 38 % 12-44 Blood monocytes/100 leukocytes 7 % 0-12 Automated blood eosinophils/100 leukocytes 5 % 0-10 Automated blood basophils/100 leukocytes 1 % 0-10 Blood neutrophils automated count (number/volume) 3.4 10*3 1.8-7.8 Blood lymphocytes automated count (number/volume) 2.6 10*3 1.0-4.0 Blood monocytes automated count (number/volume) 0. 5 10*3 0.0-1.0 Automated eosinophil count 0.3 10*3/uL 0 .0-0.3 Automated blood basophil count (count/volume) 0.1 10*3/uL 0.0-0.1 PT panel in platelet poor plasma by coag ulation assay - 09/30/19 13:35 Prothrombin time (PT) in platelet poor plasma by coagu lation assay 13.0 s 12.2-14.7 INR in platelet poor plasma or blood by coagulation as say 0.9 0.8-1.4 Activated partial thromboplastin time (a PTT) in platelet poor plasma bycoagulation assay - 09/30/19 13:35 Activated partial thromboplastin time (a PTT) in platelet poor plasma bycoagulation assay 34 s 24-35 Fibrin D-dimer FEU measurement in platel et poor plasma (mass/volume) - 09/30/19 13:35 Fibrin D-dimer FEU measurement in platelet poor plasma (mass/volume) 0.44 ug/mL 0.00-0.49 Comprehensive metabolic panel - 09/30/19 13:35 Serum or plasma sodium measurement (moles/volume) 143 mmol/L 135-145 Serum or plasma potassium measurement (moles/volume) 3.6 mmol/L 3.6-5.0 Serum or plasma chloride measurement (moles/volume) 106 mmol/L 98-107 Carbon dioxide 28 mmol/L 21-32 Serum or plasma anion gap determination (moles/volume) 9 mmol/L 5-14 Serum or plasma urea nitrogen measurement (mass/volume ) 12 mg/dL 7-18 Serum or plasma creatinine measurement (mass/volume) 0.78 mg/dL 0.60-1.30 Serum or plasma urea nitrogen/creatinine mass ratio 15 NRG Serum or plasma creatinine measurement w ith calculation of estimated glomerular filtration rate > NRG Serum or plasma glucose measurement (mass/volume) 85 mg/dL 70-105 Serum or plasma calcium measurement (mass/volume) 9.8 mg/dL 8.5-10.1 Serum or plasma total bilirubin measurement (mass/volu me) 0.3 mg/dL 0.1-1.0 Serum or plasma alkaline phosphatase tin surement (enzymatic activity/volume) 79 U/L 40-136 Serum or plasma aspartate aminotransfera se measurement (enzymatic activity/volume) 26 U/L 5-34 Serum or plasma alanine aminotransferase measurement (enzymatic activity/volume) 26 U/L 0-55 Serum or plasma protein measurement (mass/volume) 7.0 g/dL 6.4-8.2 Serum or plasma albumin measurement (mass/volume) 4.3 g/dL 3.2-4.5 CALCIUM CORRECTED 9.6 mg/dL 8.5-10.1 Magnesium - 09/30/19 13:35 Magnesium 1.8 mg/dL 1.6-2.4 Serum or plasma choriogonadotropin (preg antonio test) detection - 09/30/19 13:35 Serum or plasma choriogonadotropin ( test) de tection NEGATIVE NEGATIVE Myoglobin, serum - 09/30/19 13:35 Myoglobin, serum 22.0 ng/mL 10.0-92.0 Serum or plasma lithium measurement (mol es/volume) - 09/30/19 13:35 BNP PT 65.1 pg/mL <100.0 Serum or plasma troponin i.cardiac measu rement (mass/volume) - 09/30/19 13:35 Serum or plasma troponin i.cardiac measurement (mass/v olume) < ng/mL <0.028 Lipase - 09/30/19 13:35 Lipase 18 U/L 8-78 Urine drug screening test - 09/30/19 14: 45 Urine phencyclidine detection by screening method NEGATIVE NEGATIVE Urine benzodiazepines detection by screening method NEGATIVE NEGATIVE Urine cocaine detection NEGATIVE NEGATI VE Urine amphetamines detection by screening method N EGATIVE NEGATIVE Urine methamphetamine detection by screening method NEGATIVE NEGATIVE Urine cannabinoids detection by screening method N EGATIVE NEGATIVE Urine opiates detection by screening method POSITI VE NEGATIVE Urine barbiturates detection NEGATIVE N EGATIVE Screening urine tricyclic antidepressants detection NEGATIVE NEGATIVE Urine methadone detection by screening method NEGA TIVE NEGATIVE Urine oxycodone detection NEGATIVE NEGA TIVE Urine propoxyphene detection NEGATIVE N EGATIVE Encounters ACCT No. Visit Date/Time Discharge Status Pt. Type Provider Facility Loc./Unit Complaint [id number] 11/10/2019 14:25:00 11/10/2019 23:59:5 9 [facility] Outpatient DAMIAN RENDON [facility] [id number] 01/12/2018 19:35:00 Document Registration [id number] 10/25/2017 12:10:00 Document Registration [id number] 09/30/2019 13:43:00 18:51:00 DIS Emergency JAZLYN LIEBERMAN TR[facility] ER SOA/BACK AND CHEST PAIN [id number] 06/26/2019 12:20:00 23:59:59 CLS Outpatient DAMIAN RENDON TRACK [facility]EL[facility] RAD LUMBAR BACK PAIN WITH R ADICULOPATHY [id number] 06/17/2019 16:01:00 17:57:00 DIS Emergency JAZLYN LIEBERMAN TRACK WELDER [facility] ER BACK PAIN [id number] 11/03/2018 01:38:00 05:47:00 DIS Emergency KATHLEEN CANALES MD [facility] ER JOINTS HURTS, N AUSEA,ABD PAIN,SORE THROAT [id number] 08/01/2018 14:07:00 23:59:59 CLS Outpatient TARAH CLEMENTS MD [facility] CARD PALPITATIONS [id number] 07/16/2018 08:00:00 23:59:59 CLS Preadmit TARAH CLEMENTS MD [facility] CARD PALPITATIONS [id number] 07/12/2018 08:16:00 018 00:01:00 DIS Outpatient TARAH CLEMENTS MD [facility] CARD PALPITATIONS [id number] 06/14/2017 18:34:00 017 23:35:00 DIS Emergency JERALD DO, AVELINO K [facility] ER ABDOMINAL PAIN,CONSTIPA TION,VOMITING FECES [id number] 02/20/2017 12:27:00 09:55:00 DIS Outpatient CHARLOTTE BLANCHARD MD [facility] BILIARY DYSKINESIA [id number] 02/17/2017 09:13:00 12:31:00 DIS Outpatient CHARLOTTE BLANCHARD MD [facility] PREOP BILIARY DYSKINESIA/REFL UX [id number] 02/16/2017 09:42:00 017 23:59:59 CLS Outpatient VICKY PALMER TRACK WELDER [facility] CARD RUQ PAIN [id number] 02/13/2017 09:03:00 017 23:59:59 CLS Outpatient VICKY PALMER TRACK WELDER [facility] RAD RUQ PAIN [id number] 03/03/2016 21:44:00 016 23:47:00 DIS Emergency AVELINO MARQUES DO [facility] ER RIGHT LEG RED AND SWOLL EN [id number] 09/24/2014 07:10:00 014 23:59:59 CLS Outpatient NAINA GAY [facility] CARD [id number] 01/26/2014 18:59:00 014 21:47:00 DIS Emergency IAIN FRASER, MANINDER Dumont [facility] ER [id number] 10/18/2013 15:00:00 014 17:00:00 DIS Inpatient KUSUM FRASER, LAYLA Yu [facility] 4TH INTRACTABLE N,V,D [id number] 08/12/2013 08:09:00 013 11:00:00 DIS Outpatient [id number] 08/07/2013 07:28:00 23:59:59 CLS Outpatient ELIZA PERERA MD [facility] PREOP RECHECK OF ULCERS [id number] 04/24/2013 18:30:00 013 13:53:00 DIS Outpatient [id number] 02/14/2020 18:46:[address] Emergency MANINDER TIMMONS MD [facility] ER L ARM NUMBNESS,TINGLING IN N MAYELIN,TIGHTNESS IN CHEST [id number] 09/22/2014 11:10:00 Document Registration [id number] 09/23/2012 09:07:00 Document Registration [id number] 08/15/2012 11:21:00 Document Registration [id number] 11/28/2011 08:33:00 Document Registration [id number] 01/16/2010 23:00:00 Document Registration
--- NOTE | 2020-02-14 19:00 | NUR ---
Patient taken to CT via bed with monitor by RN.
[2020-02-14 19:10] LABS: BASOPHILS % (AUTO) 0 % (0-10); EOSINOPHILS # (AUTO) 0.4 10^3/uL (0.0-0.3); EOSINOPHILS % (AUTO) 4 % (0-10); HEMATOCRIT 41 % (35-52); HEMOGLOBIN 13.7 G/DL (11.5-16.0); LYMPHOCYTES % (AUTO) 43 % (12-44); MEAN CORPUSCULAR HEMOGLOBIN 30 PG (25-34); MEAN CORPUSCULAR HGB CONC 34 G/DL (32-36); MEAN CORPUSCULAR VOLUME 88 FL (80-99); MONOCYTES # (AUTO) 0.8 X 10^3 (0.0-1.0); MONOCYTES % (AUTO) 8 % (0-12); NEUTROPHILS # (AUTO) 4.3 X 10^3 (1.8-7.8); NEUTROPHILS % (AUTO) 45 % (42-75); PLATELET COUNT 236 10^3/uL (130-400); RED CELL DISTRIBUTION WIDTH 13.3 % (10.0-14.5); WHITE BLOOD COUNT 9.5 10^3/uL (4.3-11.0)
--- NOTE | 2020-02-14 19:15 | NUR ---
Patient returned from CT scan.
--- NOTE | 2020-02-14 19:25 | Diagnostic Imaging Report ---
HISTORY: Left arm numbness. COMPARISON: 09/30/2019. TECHNIQUE: Single frontal view of the chest. FINDINGS: Lung volumes are normal. No focal consolidation is seen. There is no pleural effusion or pneumothorax. The cardiac silhouette is normal in size and contour. IMPRESSION: No acute pulmonary abnormality is seen. Dictated by: Dictated on workstation # [id number]
--- NOTE | 2020-02-14 19:25 | Diagnostic Imaging Report ---
PROCEDURE: CT head w/o contrast, r/o stroke. TECHNIQUE: Multiple contiguous axial images were obtained through the brain without the use of intravenous contrast. Auto Exposure Controls were utilized during the CT exam to meet ALARA standards for radiation dose reduction. INDICATION: Left arm numbness. COMPARISON: 04/22/2013. FINDINGS: The ventricles and cortical sulci are age-appropriate. There is no midline shift or mass effect. No acute intracranial hemorrhage is seen. There is no CT evidence of acute territorial ischemia. The calvarium appears intact. Visualized nasal sinuses are clear. IMPRESSION: No acute intracranial hemorrhage or CT evidence of acute territorial ischemia. Findings discussed with EPIFANIO Guzmán in the Emergency Room by Dr. Levine, on 02/14/2020 7:19 PM. Dictated by: Dictated on workstation # [id number]
[2020-02-14 19:30] LABS: ALANINE AMINOTRANSFERASE 19 U/L (0-55); ALBUMIN 4.1 GM/DL (3.2-4.5); ALKALINE PHOSPHATASE 72 U/L (40-136); BILIRUBIN,TOTAL 0.2 MG/DL (0.1-1.0); BUN/CREATININE RATIO 19; CALCIUM 8.8 MG/DL (8.5-10.1); CARBON DIOXIDE 25 MMOL/L (21-32); CHLORIDE 109 MMOL/L (98-107); CREATININE SERUM 0.81 MG/DL (0.60-1.30); GFR ESTIMATED > 60; GLUCOSE 95 MG/DL (70-105); POTASSIUM 3.6 MMOL/L (3.6-5.0); SODIUM 145 MMOL/L (135-145); TOTAL PROTEIN 6.7 GM/DL (6.4-8.2)
[2020-02-14 19:33] LABS: FIBRIN DEGRADATION PRODUCTS 0.3 UG/ML (0.00-0.49); PROTHROMBIN TIME PATIENT 13.4 SEC (12.2-14.7)
--- NOTE | 2020-02-14 19:33 | ED Neurological Problem ---
General Chief Complaint: Neurological Problems Stated Complaint: L ARM NUMBNESS,TINGLING IN NECK,TIGHTNESS IN CHEST Nursing Triage Note: Patient ambulatory to ER room 7 with complaint of numbness to left arm and hand. Patient also states the numbness goes into the left side of her neck and she complaints of chest tightness on the left side. Patient states these symptoms began approximately 30 minutes ago while walking with her family. Patient states she has had swelling to the hands, ankles and feet last night. Patient states she was told by her PCP to start taking Aspirin 81 mg daily but she has not started the medication yet. Nursing Sepsis Screen: No Definite Risk Source: patient, old records Exam Limitations: no limitations History of Present Illness Date Seen by Provider: February 14, 2020 Time Seen by Provider: 18:50 Initial Comments This 39-year-old woman presents to the emergency room with complaints of parest hesias and weakness in her left arm and paresthesia in the left neck. She also has some chest tightness (no pain) which she attributes to anxiety about the situation. Symptoms started at 18:254 she was walking around her daughter's house. Patient reports history of lupus and heart disease. Patient reports history of SC but this is not confirmed by the medical record. She reports this happened in 2009. She states she left the hospital prior to completion of workup because she was afraid of having cardiac procedures. Her mother apparently during a procedure and that made her nervous. No angiography was ever performed in her troponins during that visit were negative. She subsequently had a stress echo performed in 2013 after a syncopal episode. S tre echo was negative for ischemia. She had a positive tilt table test at the same time. She follows with Dr. Shahid for cardiology. Her primary care provider is Elizabeth Mclaughlin. During initial assessment she has an NIH score of 2 for left arm and leg weakness. Stroke activation was paged. Allergies and Home Medications Allergies Coded Allergies: Iodinated Contrast Media (Verified Allergy, Severe, ANAPHYLAXIS, 02/14/20) codeine (Unverified Allergy, Unknown, 02/14/20) latex (Verified Allergy, Unknown, 02/14/20) meperidine HCl (Verified Allergy, Unknown, 02/14/20) Home Medications Dicyclomine HCl 10 Mg Capsule, 10-20 MG PO Q6H PRN for ABDOMINAL PAIN Prescribed by: AVELINO MARQUES on 06/14/172315 Hydrocodone/Acetaminophen 1 Each Tablet, 1-2 EACH PO Q4H Prescribed by: CHARLOTTE BLANCHARD on 02/20/17 161 Hyoscyamine Sulfate 0.125 Mg Tab.subl, 1-2 TAB SL Q4H Prescribed by: AVELINO MARQUES on 06/14/172315 Methocarbamol 750 Mg Tablet, 750 MG PO Q4H PRN for PAIN-MODERATE Prescribed by: JAZLYN LIEBERMAN on 06/17/19 174 Ondansetron 4 Mg Tab.rapdis, 4 MG PO Q4H Prescribed by: AVELINO MARQUES on 06/14/172315 Pantoprazole Sodium 40 Mg Tablet.dr, 40 MG PO BID, (Reported) Pantoprazole Sodium 40 Mg Tablet.dr, 40 MG PO DAILY Prescribed by: JAZLYN LIEBERMAN on 09/30/19 150 Prednisone 20 Mg Tab, 40 MG PO DAILY Prescribed by: JAZLYN LIEBERMAN on 06/17/191748 Prednisone 20 Mg Tab, 40 MG PO DAILY Prescribed by: JAZLYN LIEBERMAN on 09/30/19 1632 Sucralfate 1 Gm Tablet, 1 GM PO ACHS, (Reported) Tramadol HCl 50 Mg Tablet, 50 MG PO Q6H PRN for PAIN-MILD, (Reported) Patient Home Medication List Home Medication List Reviewed: Yes Review of Systems Review of Systems Constitutional: no symptoms reported Eyes: No Symptoms Reported Ears, Nose, Mouth, Throat: no symptoms reported Respiratory: no symptoms reported Cardiovascular: see HPI Gastrointestinal: no symptoms reported Genitourinary: no symptoms reported : No Musculoskeletal: other (arthritis pains) Skin: no symptoms reported Psychiatric/Neurological: See HPI Endocrine: No Symptoms Reported Hematologic/Lymphatic: No Symptoms Reported Past Uuuujqx-Ymwbdo-Xmunxi Hx Past Med/Social Hx: Reviewed and Corrections made Patient Social History Alcohol Use: Denies Use Recreational Drug Use: No Smoking Status: Current Everyday Smoker Type Used: Cigarettes 2nd Hand Smoke Exposure: Yes Recent Foreign Travel: No Contact w/Someone Who Travel: No Recent Infectious Disease Expo: No Recent Hopitalizations: No Physical Abuse: No Sexual Abuse: No Mistreated: No Fear: No Immunizations Up To Date Tetanus Booster (TDap): More than 5yrs Date of Pneumonia Vaccine: Nov 16, 2010 Date of Influenza Vaccine: Oct 19, 2013 Seasonal Allergies Seasonal Allergies: Yes Past Medical History Surgeries: Yes (EGD X 3; LAPAROSCOPIES WITH ABLATION OF ENDOMETRIOSIS X 3; HYST/BSO) Abdominal (endoscopy), Appendectomy, Gallbladder, Hysterectomy, Oophorectomy Respiratory: Yes Pneumonia, Chronic Bronchitis Cardiac: Yes Heart Attack (stated history but not confirmed by the medical record.), Heart Murmur, Hypertension, Rheumatic Fever, Syncope Neurological: Yes Seizure Disorder : No Reproductive Disorders: Yes (CERVICAL DYSPLASIA; ENDOMETRIOSIS) Female Reproductive Disorders: 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, 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 Sexually Transmitted Disease: No HIV/AIDS: No Genitourinary: Yes Kidney Stones, UTI-Chronic Gastrointestinal: Yes Gastroesophageal Reflux, Chronic Constipation, Chronic Diarrhea, Ulcer (gastric and duodenal), Gall Bladder Disease, Irritable Bowel Musculoskeletal: Yes Arthritis, Fibromyalgia, Chronic Back Pain Endocrine: Yes Lupus HEENT: No Loss of Vision: Denies Hearing Impairment: Denies Cancer: No Psychosocial: Yes Depression Integumentary: No Blood Disorders: No Family Medical History Reviewed Nursing Family Hx Alcoholism 03 MOTHER 09 BROTHER Chest pain 03 FATHER Congestive heart failure 03 FATHER Family history: Allergy 09 BROTHER boys daughter Family history: Arthritis 09 SISTER boys Family history: Asthma 03 MOTHER 09 BROTHER 09 BROTHER boys Family history: Diabetes mellitus 03 MOTHER Family history: Gastrointestinal disease 03 FATHER Family history: Hypertension 03 FATHER Family history: Thyroid disorder 03 MOTHER Headache 03 MOTHER boys daughter Hearing loss daughter History of - anemia daughter History of drug abuse 03 FATHER 09 BROTHER 09 BROTHER Kidney disease 03 FATHER No Family History of: Abdominal aortic aneurysm Kings's disease Aphasia Cancer Cancer of colon Cataract Congenital heart disease Cystic fibrosis Dementia Dysphagia Family history: Alzheimer's disease Family history: Breast disease Family history: Cardiovascular disease Family history: Coronary thrombosis Family history: Glaucoma Family history: Osteoporosis Heart disease Hereditary disease History of - disorder History of - respiratory disease Human immunodeficiency virus (HIV) seropositivity Hypercholesterolemia Infertile Malignant neoplasm of lung Myocardial infarction Parkinson's disease Prostate cancer Psychotic disorder Seizure disorder Stroke Tuberculosis Visual impairment Heart Disease Physical Exam Vital Signs Vital Signs - First Documented 02/14/20 18:48 Temp 36.8 Pulse 100 Resp 16 B/P (MAP) 135/109 (118) Pulse Ox 97 O2 Delivery Room Air Capillary Refill : Less Than 3 Seconds Height, Weight, BMI Height: 5'1.00" Weight: 164lbs. 0.0oz. 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 of the left upper extremity and mild decreased strength in the left lower extremity.) Crainal Nerves: normal hearing, normal speech, PERRL Coordination/Gait: normal finger to nose, normal gait Motor/Sensory: no sensory deficit, weak motor strength LUE, weak motor strength LLE Skin: normal color, warm/dry Stroke NIH Stroke Scale Assessment Level of Consciousness: 0=Alert (0), Level of Consciousness-Questions: 0=Answers both month/age (0), LOC Commands: 0=Performs both tasks (0), Visual Santos: 0=No visual loss (0), Facial Movement (Facial Paresis): 0=Normal symmetrical mnt (0), Motor Function-Arms Right: 0=No drift (0), Motor Function-Arms Left: 1=Drift (1), Motor Function-Legs Right: 0=No drift (0), Motor Function-Legs Left: 1=Drift (1), Limb Ataxia: 0=Absent (0), Sensory: 0=Normal:no loss (0), Best Language: 0=No aphasia (0), Dysarthria: 0=Normal (0), Extinction & Inattention: 0=No abnormality (0), Total: 2 Progress/Results/Core Measures Results/Orders Lab Results Laboratory Tests Test 02/14/20 19:00 02/14/20 19:21 Range/Units White Blood Count 9.5 4.3-11.0 10^3/uL Red Blood Count 4.64 4.35-5.85 10^6/uL Hemoglobin 13.7 11.5-16.0 G/DL Hematocrit 41 35-52 % Mean Corpuscular Volume 88 80-99 FL Mean Corpuscular Hemoglobin 30 25-34 PG Mean Corpuscular Hemoglobin Concent 34 32-36 G/DL Red Cell Distribution Width 13.3 10.0-14.5 % Platelet Count 236 130-400 10^3/uL Mean Platelet Volume 11.0 H 7.4-10.4 FL Neutrophils (%) (Auto) 45 42-75 % Lymphocytes (%) (Auto) 43 12-44 % Monocytes (%) (Auto) 8 0-12 % Eosinophils (%) (Auto) 4 0-10 % Basophils (%) (Auto) 0 0-10 % Neutrophils # (Auto) 4.3 1.8-7.8 X 10^3 Lymphocytes # (Auto) 4.0 1.0-4.0 X 10^3 Monocytes # (Auto) 0.8 0.0-1.0 X 10^3 Eosinophils # (Auto) 0.4 H 0.0-0.3 10^3/uL Basophils # (Auto) 0.0 0.0-0.1 10^3/uL Prothrombin Time 13.4 12.2-14.7 SEC INR Comment 1.0 0.8-1.4 Activated Partial Thromboplast Time 34 24-35 SEC D-Dimer 0.30 0.00-0.49 UG/ML Sodium Level 145 135-145 MMOL/L Potassium Level 3.6 3.6-5.0 MMOL/L Chloride Level 109 H 98-107 MMOL/L Carbon Dioxide Level 25 21-32 MMOL/L Anion Gap 11 5-14 MMOL/L Blood Urea Nitrogen 15 7-18 MG/DL Creatinine 0.81 0.60-1.30 MG/DL Estimat Glomerular Filtration Rate > 60 BUN/Creatinine Ratio 19 Glucose Level 95 70-105 MG/DL Calcium Level 8.8 8.5-10.1 MG/DL Corrected Calcium 8.7 8.5-10.1 MG/DL Total Bilirubin 0.2 0.1-1.0 MG/DL Aspartate Amino Transf (AST/SGOT) 21 5-34 U/L Alanine Aminotransferase (ALT/SGPT) 19 0-55 U/L Alkaline Phosphatase 72 40-136 U/L Troponin I < 0.028 <0.028 NG/ML Total Protein 6.7 6.4-8.2 GM/DL Albumin 4.1 3.2-4.5 GM/DL Glucometer 102 70-110 MG/DL My Orders Orders - MANINDER TIMMONS MD Cbc With Automated Diff (02/14/20:) Protime With Inr (02/14/20:) Partial Thromboplastin Time (02/14/20:) Comprehensive Metabolic Panel (02/14/20) Fibrin Degradation Products (02/14/20:) Troponin I (02/14/20:) Ua Culture If Indicated (02/14/20:) Chest 1 View, Ap/Pa Only (02/14/20:) Ekg Tracing (02/14/20) Accucheck Stat ONCE (02/14/20:) Ed Iv/Invasive Line Start (02/14/20:) Ed Iv/Invasive Line Start (02/14/20) Vital Signs Stroke Patient Q15M (02/14/20:) Ct Head Wo-R/O Stroke (02/14/20:) O2 (02/14/20:) Intake & Output 06,14,22 (02/14/20:) Monitor-Rhythm Ecg Trace Only (02/14/20:) Dysphagia Screening Tool (02/14/20:) Post Thrombolytic Adminstratio (02/14/20:) Lipid Panel (02/15/20 06:00) Medications Given in ED Vital Signs/I&O 02/14/20 18:48 Temp 36.8 Pulse 100 Resp 16 B/P (MAP) 135/109 (118) Pulse Ox 97 O2 Delivery Room Air Blood Pressure Mean: 118 FSBG Bedside Testing Finger Stick Blood Glucose: 102 Progress Progress Note #1: Time: 19:40 Progress Note Stroke activation was paged during initial assessment. NIH stroke score was 2. CT was performed without contrast and was unremarkable. I discussed the case with Dr. Hirsch, stroke neurologist at [facility] at 19:10. We discussed the appropriateness of TPA. Because patient's symptoms are relatively minor with a low NIH score, we believe that TPA is not probably a bell decision. I subsequently discussed this with the patient. She agrees that the risks of TPA are not worth the benefit given her current symptoms. I also discussed pretreatment for CT angiogram because of her documented history of anaphylaxis from iodinated dye. Again, this is likely not worth the risk given her low NIH stroke score. I discussed this issue with the patient as well, and she is in agreement risk is not worth the benefit. She declines CT angiogram. Progress Note #2: Time: 20:28 Progress Note Workup was unremarkable. Repeat NIH was still 2. Deficits were unchanged. I discussed the case again with Dr. Hirsch. Admission to a facility with MRI capacity and neurology services was recommended and I agree with this recommendation. This was communicated to the patient. She was reluctant to be transferred based on her financial situation and declined transfer. We discussed the risks and benefits of transfer and she is aware that her workup cannot be promptly completed at [facility] and that we do not have neurology or MRI services. She requests to be admitted at [facility] after neurology these risks. I discussed the case with Dr. Marshall who agrees to admit for observation. She requested consultation with Dr. Daugherty. Dr. Daugherty recommended an echocardiogram in the morning. Patient passed her dysphagia screen and was given aspirin. Stroke order set was used along with the bridging orders. A 6 hour troponin and UDS were ordered after discussion with the admitting team. Initial ECG Impression Date: February 14, 2020 Initial ECG Impression Time: 19:24 Initial ECG Rate: 76 Initial ECG Rhythm: Normal Sinus Initial ECG Intervals: Normal Initial ECG Impression: Normal Comment Normal sinus rhythm with no ST elevation or depression. No abnormal intervals or axis deviation. Diagnostic Imaging Diagonstic Imaging: CT Plain Films/CT/US/NM/MRI: head Comments CT head viewed by me and report reviewed. See report below: NAME: CECELIA MONCADA [facility] REC#: [id number] PT STATUS: REG ER : 1980 PHYSICIAN: MANINDER TIMMONS MD ADMIT DATE: 02/14/20/ER Draft Date of Exam:02/14/20 CT HEAD WO-R/O STROKE PROCEDURE: CT head w/o contrast, r/o stroke. TECHNIQUE: Multiple contiguous axial images were obtained through the brain without the use of intravenous contrast. Auto Exposure Controls were utilized during the CT exam to meet ALARA standards for radiation dose reduction. INDICATION: Left arm numbness. COMPARISON: 04/22/2013. FINDINGS: The ventricles and cortical sulci are age-appropriate. There is no midline shift or mass effect. No acute intracranial hemorrhage is seen. There is no CT evidence of acute territorial ischemia. The calvarium appears intact. Visualized nasal sinuses are clear. IMPRESSION: No acute intracranial hemorrhage or CT evidence of acute territorial ischemia. Findings discussed with EPIFANIO Guzmán in the Emergency Room by Dr. Gilliam, on 02/14/2020 7:19 PM. Dictated on workstation # [id number] Dict: 02/14/201916 Trans: 02/14/201923 [facility] [id number] Interpreted by: MARY GILLIAM MD Diagonstic Imaging: Xray Plain Films/CT/US/NM/MRI: chest Comments Chest x-ray viewed by me and report reviewed. See report below: NAME: CECELIA MONCADA [facility] REC#: [id number] PT STATUS: REG ER : 1980 PHYSICIAN: MANINDER TIMMONS MD ADMIT DATE: 02/14/20/ER Draft Date of Exam:02/14/20 CHEST 1 VIEW, AP/PA ONLY HISTORY: Left arm numbness. COMPARISON: 09/30/2019. TECHNIQUE: Single frontal view of the chest. FINDINGS: Lung volumes are normal. No focal consolidation is seen. There is no pleural effusion or pneumothorax. The cardiac silhouette is normal in size and contour. IMPRESSION: No acute pulmonary abnormality is seen. Dictated on workstation # [id number] Dict: 02/14/201920 Trans: 02/14/201924 [facility] [id number] Interpreted by: MARY GILLIAM MD Departure Communication (Admissions) Time/Spoke to Admitting Phy: 20:06 Dr. Biswas Time/Spoke to Consulting Phy: 20:10 Dr. Daugherty Impression Primary Impression: Left-sided weakness Additional Impression: Chest tightness Disposition: ADMITTED INPATIENT Condition: Stable Admissions Decision to Admit Reason: Admit from ER (General) Decision to Admit/Date: February 14, 2020 Time/Decision to Admit Time: 20:00 Departure-Patient Inst. Referrals: [facility] (PCP/Family) Primary Care Physician MANINDER TIMMONS MD February 14, 2020 19:33
[2020-02-14] MEDS ORDERED: ASPIRIN 325 MG (5 GR) TABLET PO ONE (20:15)
[2020-02-14 21:20] VITALS: BP 126/79
[2020-02-14] MEDS ORDERED: ONDANSETRON 4 MG/2 ML (SDV) Z0FRAN IV PRN (21:30)
[2020-02-14] MEDS ORDERED: ACETAMINOPHEN 500 MG TAB (TYLENOL) PO PRN (21:30)
[2020-02-14 22:10] LABS: BILIRUBIN,URINE NEGATIVE (NEGATIVE); CLARITY,URINE CLEAR; COLOR,URINE YELLOW; GLUCOSE, URINE (UA) NEGATIVE (NEGATIVE); KETONES,URINE NEGATIVE (NEGATIVE); LEUKOCYTE ESTERASE ,URINE TRACE (NEGATIVE); NITRITE,URINE NEGATIVE (NEGATIVE); PROTEIN,URINE NEGATIVE (NEGATIVE)
[2020-02-14 22:44] LABS: AMORPHOUS SEDIMENT,UR FEW AMOR URATES /LPF; BACTERIA,URINE TRACE /HPF; WBC,URINE 0-2 /HPF
[2020-02-14 22:55] LABS: AMPHETAMINE SCREEN, URINE NEGATIVE (NEGATIVE); BARBITURATE SCREEN URINE NEGATIVE (NEGATIVE); BENZODIAZEPINES SCREEN URINE NEGATIVE (NEGATIVE); CANNABINOID SCREEN, URINE NEGATIVE (NEGATIVE); COCAINE SCREEN URINE NEGATIVE (NEGATIVE); METHADONE STAT NEGATIVE (NEGATIVE); METHAMPHETAMINE SCREEN URINE S NEGATIVE (NEGATIVE); OPIATE SCREEN URINE POSITIVE (NEGATIVE); OXYCODONE STAT NEGATIVE (NEGATIVE); PROPOXYPHENE STAT NEGATIVE (NEGATIVE); TRICYCLIC ANTIDEPRESSANTS SCRE NEGATIVE (NEGATIVE)
[2020-02-14] MEDS ORDERED: diphenhydrAMINE 25 MG TAB (BENADRYL) PO PRN (23:00)
[2020-02-14] MEDS ORDERED: ALPRAZolam 0.25 MG (XANAX) TAB PO PRN (23:00)
[2020-02-14] MEDS ORDERED: ENOXAPARIN 40 MG/0.4 ML (LOVENOX) SYR SC SCH (23:00)
[2020-02-14] MEDS ORDERED: MELATONIN 3 MG TABLET PO PRN (23:00)
[2020-02-14] MEDS ORDERED: CALCIUM CARBONATE 500 MG (TUMS) TAB.CHEW PO PRN (23:00)
[2020-02-14] MEDS ORDERED: HYDROcodone/APAP 5 MG/325 MG (LORTAB) TAB PO PRN (23:00)
[2020-02-14] MEDS ORDERED: DOCUSATE SODIUM 100 MG (COLACE) CAP PO PRN (23:00)
[2020-02-15] VITALS: BP 100/61
[2020-02-15 01:52] LABS: CHOLESTEROL 155 MG/DL (< 200); HDL CHOLESTEROL 42 MG/DL (40-60); TRIGLYCERIDES 94 MG/DL (<150); VLDL CHOLESTEROL 19 MG/DL (5-40)
[2020-02-15 04:00] VITALS: BP 137/67
[2020-02-15] MEDS ORDERED: HYDROXYCHLOROQUINE 200 MG (PLAQUENIL) TAB PO SCH (07:00)
[2020-02-15 08:00] VITALS: BP 117/85
--- NOTE | 2020-02-15 08:34 | Physical Therapy Evaluation ---
PT Evaluation-General Medical Diagnosis Admission Date February 14, 2020 at 20:10 Medical Diagnosis: left sided weakness Onset Date: February 14, 2020 Therapy Diagnosis Therapy Diagnosis: weakness; abn gait Height/Weight Height (Feet): 5 Height (Inches): 1.00 Weight (Pounds): 164 Weight (Ounces): 0.0 Precautions Precautions/Isolations: Standard Precautions Weight Bear Status Right Lower Extremity: Right Weight Bearing/Tolerated Left Lower Extremity: Left Weight Bearing/Tolerated Referral Physician: True Reason for Referral: Evaluation/Treatment Medical History Additional Medical History bronchitis, seizure disorder, UTI, IBS, arthritis, fibromyalgia, lupus, chronic pain Current History Pt admitted with reports of left UE weakness with N/T; Reviewed History: Yes Social History Home: Single Level Current Living Status: Children Entry Into Home: Stairs With Railing Prior Prior Level of Function SCALE: Activities may be completed with or without assistive devices. 4-Qbucftqdoo-oytcsuq completes the activity by him/herself with no assistance from a helper. 5-Set-up or Clean-up Assistance-helper sets up or cleans up; patient completes activity. [place] assists only prior to or following the activity. 4-Supervision or Touching Assistance-helper provides verbal cues and/or touching/steadying and/or contact guard assistance as patient completes activity. Assistance may be provided throughout the activity or intermittently. 3-Partial/Moderate Assistance-helper does LESS THAN HALF the effort. [place] lifts, holds or supports trunk or limbs, but provides less than half the effort. 2-Substantial/Maximal Assistance-helper does MORE THAN HALF the effort. [place] lifts or holds trunk or limbs and provides more than half the effort. 9-Ykhifovls-qjrvvu does ALL the effort. Patient does none of the effort to complete the activity. Or, the assistance of 2 or more helpers is required for the patient to complete the activity. If activity was not attempted, code reason: 7-Patient Refused. 9-Not Applicable-not attempted and the patient did not perform the activity before the current illness, exacerbation or injury. 10-Not Attempted due to Environmental Limitations-(lack of equipment, weather restraints, etc.). 88-Not Attempted due to Medical Conditions or Safety Concerns. Bed Mobility: 6 Transfers (B,C,W/C): 6 Gait: 6 Pt reports she always has difficulty with walking first thing in the morning. Denies use of AD. Reports her feet always "burn" PT Evaluation-Current Subjective Agrees to PT. Reports she has been walking to the bathroom. Reports walking is difficult early in the morning and then gets better. Objective Patient Orientation: Person, Place, Time, Situation ROM/Strength ROM Lower Extremities WFL Strength Lower Extremities strength is grossly 4/5 throughout. Integumentary/Posture Integumentary intact Bowel Incontinence: No Bladder Incontinence: No Posture pt stands slightly forward flexed. Neuromuscular (Tone, Coordination, Reflexes) intact Sensory Vision: Functional Hearing: Functional Hand Dominance: Right Sensation Lower Extremities Pt reports her sensation is slightly altered B LE; reports this is longstanding and she does not feel anything new. Transfers Roll Left to Right (QC): 5 Sit to Lying (QC): 5 Lying to Sitting/Side of Bed(Q: 5 Sit to Stand (QC): 5 Chair/Pcn-ev-Wvcnd Xfer(QC): 4 Gait Does the Patient Walk?: Yes Mode of Locomotion: Walk Walk 10 feet (QC): 4 Walk 50 ft with 2 Turns(QC): 4 Distance: 100 ft Gait Assistive Device: None Comments/Gait Description pt walked 100 ft with DECAL MAKER of 1 for balance and she occas used chino rail; forward flexed and antalgic which improved with time. Balance Sitting Static: Good Standing Static: Fair Standing Dynamic: Fair Assessment/Needs Pt presents with altered gait that is unsteady; she is slow with functional transfers but is able to complete herself. she will benefit from short term skilled PT to address functional mobility and safety to decrease fall risk and improve her functional mobility. Rehab Potential: Good PT Director Of Litigation Goals Long-Term Goals PT Long-Term Goals Time Frame: February 21, 2020 Sit to Lying (QC): 6 Lying-Sitting on Side/Bed(QC): 6 Sit to Stand (QC): 6 Chair/Gcz-gw-Vkwlx Xfer(QC): 6 Walk 150 ft (QC): 6 PT Plan Problem List Problem List: Activity Tolerance, Functional Strength, Safety, Balance, Gait, Transfer Treatment/Plan Treatment Plan: Continue Plan of Care Treatment Plan: Education, Functional Activity Mike, Functional Strength, Gait, Safety, Therapeutic Exercise, Transfers Treatment Duration: February 21, 2020 Frequency: 6 times per week Estimated Hrs Per Day: .25 hour per day Safety Risks/Education Patient Education: Safety Issues Teaching Recipient: Patient Teaching Methods: Discussion Response to Teaching: Verbalize Understanding Time/GCodes Time In: 745 Time Out: 805 Total Billed Treatment Time: 20 Total Billed Treatment visit EVL 20 GLENN VILLALPANDO PT February 15, 2020 08:34
[2020-02-15] MEDS ORDERED: SENNA W/DOCUSATE (SENOKOT S) TABLET PO SCH (09:00)
[2020-02-15] MEDS ORDERED: DOCUSATE SODIUM 100 MG (COLACE) CAP PO SCH (09:00)
[2020-02-15] MEDS ORDERED: ASPIRIN E.C. 325 MG (ECOTRIN) TABLET PO SCH (09:00)
--- NOTE | 2020-02-15 11:11 | Occupational Therapy Eval ---
OT Evaluation-General/PLF Medical Diagnosis Admission Date February 14, 2020 at 20:10 Medical Diagnosis: left sided weakness Onset Date: February 14, 2020 Therapy Diagnosis Therapy Diagnosis: Weakness Height/Weight Height (Feet): 5 Height (Inches): 1.00 Weight (Pounds): 164 Weight (Ounces): 0.0 Precautions Precautions/Isolations: Standard Precautions Weight Bear Status Weight Bearing Restriction: Weight Bearing/Tolerated Referral Physician: True Referral Reason: Activity Tolerance, Self Care, Evaluation/Treatment, Strengthening/ROM Medical History Pertinent Medical History: Arthritis, HTN Additional Medical History Lupus, heart disease, NE per pt., seizure disorder Current History Pt. presented to ER with chest tightness, and weakness in her left UE and neck. CT clear for CVA. Social History Home: Single Level Current Living Status: Children Entry Into Home: Stairs With Railing ADL-Prior Level of Function SCALE: Activities may be completed with or without assistive devices. 5-Rzuszrhosm-lusjebe completes the activity by him/herself with no assistance from a helper. 5-Set-up or Clean-up Assistance-helper sets up or cleans up; patient completes activity. [place] assists only prior to or following the activity. 4-Supervision or Touching Assistance-helper provides verbal cues and/or touching/steadying and/or contact guard assistance as patient completes activity. Assistance may be provided throughout the activity or intermittently. 3-Partial/Moderate Assistance-helper does LESS THAN HALF the effort. [place] lifts, holds or supports trunk or limbs, but provides less than half the effort. 2-Substantial/Maximal Assistance-helper does MORE THAN HALF the effort. [place] lifts or holds trunk or limbs and provides more than half the effort. 8-Gxnzxenvu-iyzdxj does ALL the effort. Patient does none of the effort to complete the activity. Or, the assistance of 2 or more helpers is required for the patient to complete the activity. If activity was not attempted, code reason: 7-Patient Refused. 9-Not Applicable-not attempted and the patient did not perform the activity before the current illness, exacerbation or injury. 10-Not Attempted due to Environmental Limitations-(lack of equipment, weather restraints, etc.). 88-Not Attempted due to Medical Conditions or Safety Concerns. ADL PLOF Comments Pt. states that she is typically independent with daily skills. Self Care: Independent Functional Cognition: Independent OT Current Status Subjective No pain reported. Appearance Pt. in bed asleep when OT enters room. Pt. wakes up and talks with therapist. Mental Status/Objective Patient Orientation: Person, Place, Time, Situation Current Hand Dominance: Right Upper Extremity ROM WFL Other Treatments Pt. in bed. Talks with OT about current situation. Pt. verbalizes that she is able to ambulate in room and was just in bathroom on her own. States no difficulty with this. OT and pt. talk about her left sided weakness. Pt. demonstrates full ROM in left UE, but weak grasp. Pt. able to make fist, but grasp at 2+/5 strength. Pt. states that she is no longer experiencing numbness or tingling in left side. Pt. reports that she has nerve damage in feet from Lupus, and assumes that this is the same thing. OT provides hand therapy sponge for strengthening, and handouts on radial and median nerve glides. Pt. is educated on exercises in the case that her weakness was from a nerve impingement, not nerve damage. Pt. reports that her strength is getting better, and that she is unsure why her weakness is present. States that she is still having test done. OT encourages pt. to receive follow up care if weakness does not improve after she is discharged from hospital. Pt. is able to use her left hand to hold phone, and perform other ADLs. All needs met at this time. Education OT Patient Education: Correct positioning, Exercise program, Home exercise program, Reviewed precautions, Rehab process Teaching Recipient: Patient Teaching Methods: Demonstration, Discussion Response to Teaching: Verbalize Understanding OT Wood Grinder Operator Goals Group Home Goals Time Frame: February 22, 2020 Additional Goals: 3-ImproveStrength/Mike 1=Demonstrate adherence to instructed precautions during ADL tasks. 2=Patient will verbalize/demonstrate understanding of assistive devices/modifications for ADL. 3=Patient will improve strength/tolerance for activity to enable patient to perform ADL's. Pt. will demonstrate independence with HEP for improved strength of left UE. OT Education/Plan Problem List/Assessment Assessment: Decreased UE Strength Discharge Recommendations Plan/Recommendations: Continue POC Therapy Discharge Recommendati: Home & Family Treatment Plan/Plan of Care Treatment,Training & Education: Yes Patient would benefit from OT for education, treatment and training to promote independence in ADL's, mobility, safety and/or upper extremity function for ADL's. Plan of Care: UE Funct Exercise/Act Treatment Duration: February 22, 2020 Frequency: 5 times per week Estimated Hrs Per Day: .25 hour per day Agreement: Yes Rehab Potential: Good Time/GCodes Start Time: 10:00 Stop Time: 10:30 Total Time Billed (hr/min): 30 Billed Treatment Time 1, HUSSEIN VANEGAS OT February 15, 2020 11:11
[2020-02-15 12:00] VITALS: BP 119/77
[2020-02-15] MEDS ORDERED: HYDR200T46 PO (13:02)
[2020-02-15] MEDS ORDERED: MTP25TSR PO (13:02)
[2020-02-15] MEDS ORDERED: ASPI325T32 PO (13:02)
[2020-02-15] MEDS ORDERED: ATOR80TA76 PO (13:02)
--- NOTE | 2020-02-15 13:03 | Short Stay Summary-Hospitalist ---
History of Present Illness HPI/Chief Complaint Chief complaint: Left-sided weakness History of present illness: This is a 39-year-old white female clinic patient of Elizabeth Arnoldo at [facility] who has a past medical history of lupus and continues to smoke with a history of heart disease managed by Dr. Shahid who presented to the ER with vague left-sided weakness and her stroke score was 2. CT scan was normal and it was not done with contrast due to anaphylactic shock with IV contrast. stroke center was updated by ER doctor and recommended if still a stroke was thought to be the source of this issue and MRI could not be done but close monitoring over the weekend and then set that up as an outpatient. Patient at this current time denies any significant leaning over to the left and she feels like the numbness in her hand is the same type in her feet where she has been diagnosed with neuropathy. She wonders if all of this is from a pinched nerve in her cervical spine. I did consult cardiology and they recommended statin therapy and a full aspirin of which she had just been started on a baby aspirin 3 days prior. We will go ahead and have a close follow-up with her primary care provider to evaluate if an MRI and additional scanning and testing is needed. PT and OT did see her finding no evidence of any severe deficit so she was approved to go home by both this examiner and cardiology patient was agreeable to do that. Source: patient, RN/MD Exam Limitations: no limitations Date Seen 02/15/20 Time Seen by a Provider: 12:00 Attending Physician Libby Biswas DO [facility] Referring Physician Date of Admission February 14, 2020 at 20:10 Home Medications & Allergies Home Medications Reviewed patient Home Medication Reconciliation performed by pharmacy medication reconciliations wind energy technician and/or nursing. Patients Allergies have been reviewed. Allergies Allergies Coded Allergies Iodinated Contrast Media (Verified Allergy, Severe, ANAPHYLAXIS, 02/14/20) codeine (Unverified Allergy, Unknown, 02/14/20) latex (Verified Allergy, Unknown, 02/14/20) meperidine HCl (Verified Allergy, Unknown, 02/14/20) Past Mpvrner-Ddtydl-Fxvwww Hx Past Med/Social Hx: Reviewed Nursing Past Med/Soc Hx, Reviewed and Corrections made Patient Social History Marrital Status: single Employed/Student: unemployed Alcohol Use: Denies Use Recreational Drug Use: No Smoking Status: Current Everyday Smoker Type Used: Cigarettes 2nd Hand Smoke Exposure: Yes Recent Foreign Travel: No Contact w/other who traveled: No Recent Hopitalizations: No Recent Infectious Disease Expo: No Immunizations Up To Date Tetanus Booster (TDap): More than 5yrs Date of Pneumonia Vaccine: Nov 16, 2010 Date of Influenza Vaccine: Oct 19, 2013 Seasonal Allergies Seasonal Allergies: Yes Past Medical History Surgeries: Abdominal (endoscopy), Appendectomy, Gallbladder, Hysterectomy, Oophorectomy Cardiac: Heart Attack (stated history but not confirmed by the medical record.), Heart Murmur, Hypertension, Rheumatic Fever, Syncope Neurological: Seizure Disorder : No Reproductive: Yes (CERVICAL DYSPLASIA; ENDOMETRIOSIS) Sexually Transmitted Disease: No HIV/AIDS: No Female Reproductive Disorders: 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, Ovarian Cyst Hysterectomy Genitourinary: Kidney Stones, UTI-Chronic Gastrointestinal: Gastroesophageal Reflux, Chronic Constipation, Chronic Diarrhea, Ulcer (gastric and duodenal), Gall Bladder Disease, Irritable Bowel Musculoskeletal: Arthritis, Fibromyalgia, Chronic Back Pain Endocrine: Lupus Loss of Vision: Denies Hearing Impairment: Denies Psychosocial: Depression History of Blood Disorders: No Family History Reviewed Nursing Family Hx Alcoholism 03 MOTHER 09 BROTHER Chest pain 03 FATHER Congestive heart failure 03 FATHER Family history: Allergy 09 BROTHER boys daughter Family history: Arthritis 09 SISTER boys Family history: Asthma 03 MOTHER 09 BROTHER 09 BROTHER boys Family history: Diabetes mellitus 03 MOTHER Family history: Gastrointestinal disease 03 FATHER Family history: Hypertension 03 FATHER Family history: Thyroid disorder 03 MOTHER Headache 03 MOTHER boys daughter Hearing loss daughter History of - anemia daughter History of drug abuse 03 FATHER 09 BROTHER 09 BROTHER Kidney disease 03 FATHER No Family History of: Abdominal aortic aneurysm [place]'s disease Aphasia Cancer Cancer of colon Cataract Congenital heart disease Cystic fibrosis Dementia Dysphagia Family history: Alzheimer's disease Family history: Breast disease Family history: Cardiovascular disease Family history: Coronary thrombosis Family history: Glaucoma Family history: Osteoporosis Heart disease Hereditary disease History of - disorder History of - respiratory disease Human immunodeficiency virus (HIV) seropositivity Hypercholesterolemia Infertile Malignant neoplasm of lung Myocardial infarction Parkinson's disease Prostate cancer Psychotic disorder Seizure disorder Stroke Tuberculosis Visual impairment Heart Disease Review of Systems Constitutional: see HPI Psychiatric/Neurological: Emotional Problems, Numbness, Paresthesia Physical Exam Physical Exam Vital Signs Vital Signs - First Documented 02/14/20 18:48 Temp 36.8 Pulse 100 Resp 16 B/P (MAP) 135/109 (118) Pulse Ox 97 O2 Delivery Room Air Capillary Refill : Less Than 3 Seconds Height, Weight, BMI Height: 5'1.00" Weight: 164lbs. 0.0oz. [id number]; 33.47 BMI Method:Actual General Appearance: No Apparent Distress, WD/WN, Chronically ill Eyes: Bilateral Eye Normal Inspection, Bilateral Eye PERRL HEENT: PERRL/EOMI, TMs Normal, Normal ENT Inspection, Pharynx Normal Neck: Full Range of Motion, Normal Inspection, Non Tender, Supple, Carotid Bruit Respiratory: Chest Non Tender, Lungs Clear, Normal Breath Sounds, No Accessory Muscle Use, No Respiratory Distress Cardiovascular: Regular Rate, Rhythm, No Edema, No Gallop, No JVD, No Murmur, Normal Peripheral Pulses Gastrointestinal: Normal Bowel Sounds, No Organomegaly, No Pulsatile Mass, Non Tender, Soft Back: Normal Inspection, No CVA Tenderness, No Vertebral Tenderness Extremity: Normal Capillary Refill, Normal Inspection, Normal Range of Motion, Non Tender, No Calf Tenderness, No Pedal Edema Neurologic/Psychiatric: Alert, Oriented x3, No Motor/Sensory Deficits, Normal Mood/Affect Skin: Normal Color, Warm/Dry Lymphatic: No Adenopathy Results Results/Procedures Labs Laboratory Tests 02/14/20 19:00 Patient resulted labs reviewed. Short Stay Diagnosis Discharge Diagnosis-Short Stay Admission Diagnosis Assessment: Left sided weakness nearly resolved but suspect non-CVA source SLE Smoker CAD HTN Final Discharge Diagnosis Assessment: Left sided weakness nearly resolved but suspect non-CVA source SLE Smoker CAD HTN Conclusion Plan DC home PCP Monday to decide if MRI warranted ASA in meantime along with statin Stop smoking Diagnosis/Problems Diagnosis/Problems (1) Left-sided weakness Status: Acute Clinical Quality Measures DVT/VTE Risk/Contraindication: Risk Factor Score Per Nursin RFS Level Per Nursing on Admit: 3=High LIBBY BISWAS DO February 15, 2020 13:03
--- NOTE | 2020-02-15 13:45 | NUR ---
PT SEEN BY SEA AND NICOLAS TODAY. BOTH ARE DISCHARGING HER FROM HOSPITAL TODAY. DR OSEI DOESNT THINK SHE HAD A STROKE BUT IS TREATING HER LIKE SHE IS. DR VALENZUELA ORDERED ASPIRIN 325 MG DAILY AND TO CALL HIS OFFICE MONDAY TO MAKE APPOINTMENT TO SEE HIM THIS WEEK. ALL INFO GIVEN TO PT.
--- NOTE | 2020-02-15 14:35 | NUR ---
PT GIVEN D/C INSTRUCTIONS AND EDUCATION. PT SIGNED FORM FOR D/C. PT TAKEN VIA W/C PUSHED BY STAFF TO ED DOOR WHERE HER DAUGHTER IS WAITING ON HER IN PRIVATE VEHICLE.
--- NOTE | 2020-02-15 21:08 | Consultation-Cardiology ---
HPI-Cardiology Cardiology Consultation: Date of Consultation 02/15/20 Date of Admission Attending Physician Libby Osei DO Admitting Physician [facility] Consulting Physician Sanjay DAUGHERTY MD HPI: Time Seen by a Provider: 11:00 Chief Complaint: Possible stroke. This is a 39-year-old lady who presented to the ER with complains of left upper extremity weakness and paresthesia and also paresthesia in the left neck. She complained of mild chest tightness as well. Patient has history of SLE and possible heart disease. She states that she has a history of MT but there is no documentation. She has previous negative stress echocardiogram in 2013. She follows with Dr. Shahid for cardiology. When I saw the patient she denied any chest pain or shortness of breath. She is very anxious. She is an active smoker. Denied any pertinent family history. CT head was negative for stroke. MRI was recommended and she was recommended to transfer to [facility] for MRI but she refused. Therefore we are not tender percent confirmed that this is an acute stroke. Review of Systems-Cardiology Review of Systems Constitutional: As described under HPI; No As described under HPI, No no symptoms reported, No chills, No fever, No lightheadedness Eyes: No As described under HPI, No no symptoms reported, No blindness, No blurred vision, No contact lenses, No drainage, No decreased acuity, No foreign body sensation, No pain, No vision change Ears/Nose/Throat: No As described under HPI, No no symptoms reported, No chronic hearing loss, No ear discharge, No ear pain, No nasal drainage, No ulcerations Respiratory: No no symptoms reported; As described under HPI; No As described under HPI, No cough, No orthopnea, No shortness of breath, No SOB with excertion Cardiovascular: No no symptoms reported; As described under HPI; No As described under HPI, No chest pain, No edema, No irregular heart rate, No lightheadedness, No palpitations Gastrointestinal: No no symptoms reported, No As described under HPI, No abdomen distended, No abdominal pain, No blood streaked bowels, No constipation, No diarrhea, No nausea, No vomiting, No stool coloration changes Genitourinary: No As described under HPI, No burning, No dysuria, No discharge, No frequency, No flank pain, No hematuria, No urgency : No Skin: No rash, No skin related problems, No ulcerations Psychiatric/Neurological: No anxiety, No depression, No seizure, No focal weakness, No syncope Hematologic: No bleeding abnormalities COL-Lonhjc-Klswnj Hx Patient Social History Marrital Status: single Employed/Student: unemployed Alcohol Use: Denies Use Recreational Drug Use: No Smoking Status: Current Everyday Smoker Type Used: Cigarettes 2nd Hand Smoke Exposure: Yes Recent Foreign Travel: No Recent Infectious Disease Expo: No Hospitalization with Isolation: Denies Immunizations Up To Date Tetanus Booster (TDap): More than 5yrs Date of Pneumonia Vaccine: Nov 16, 2010 Date of Influenza Vaccine: Oct 19, 2013 Past Medical History PMH As described under Assessment. Family Medical History Family History: Alcoholism 03 MOTHER 09 BROTHER Chest pain 03 FATHER Congestive heart failure 03 FATHER Family history: Allergy 09 BROTHER boys daughter Family history: Arthritis 09 SISTER boys Family history: Asthma 03 MOTHER 09 BROTHER 09 BROTHER boys Family history: Diabetes mellitus 03 MOTHER Family history: Gastrointestinal disease 03 FATHER Family history: Hypertension 03 FATHER Family history: Thyroid disorder 03 MOTHER Headache 03 MOTHER boys daughter Hearing loss daughter History of - anemia daughter History of drug abuse 03 FATHER 09 BROTHER 09 BROTHER Kidney disease 03 FATHER No Family History of: Abdominal aortic aneurysm [place]'s disease Aphasia Cancer Cancer of colon Cataract Congenital heart disease Cystic fibrosis Dementia Dysphagia Family history: Alzheimer's disease Family history: Breast disease Family history: Cardiovascular disease Family history: Coronary thrombosis Family history: Glaucoma Family history: Osteoporosis Heart disease Hereditary disease History of - disorder History of - respiratory disease Human immunodeficiency virus (HIV) seropositivity Hypercholesterolemia Infertile Malignant neoplasm of lung Myocardial infarction Parkinson's disease Prostate cancer Psychotic disorder Seizure disorder Stroke Tuberculosis Visual impairment Allergies and Home Medications Allergies Coded Allergies: Iodinated Contrast Media (Verified Allergy, Severe, ANAPHYLAXIS, 02/14/20) codeine (Unverified Allergy, Unknown, 02/14/20) latex (Verified Allergy, Unknown, 02/14/20) meperidine HCl (Verified Allergy, Unknown, 02/14/20) Home Medications Aspirin 325 Mg Tablet.dr, 325 MG PO DAILY Prescribed by: LIBBY OSEI on 02/15/20 1302 Atorvastatin Calcium 80 Mg Tablet, 80 MG PO DAILY Prescribed by: LIBBY OSEI on 02/15/20 1302 Hydroxychloroquine Sulfate 200 Mg Tablet, 200 MG PO BID WITH MEALS Prescribed by: LIBBY OSEI on 02/15/20 1302 Metoprolol Succinate 25 Mg Tab.er.24h, 25 MG PO DAILY Prescribed by: LIBBY OSEI on 02/15/20 1302 Pantoprazole Sodium 40 Mg Tablet.dr, 40 MG PO BID, (Reported) Sucralfate 1 Gm Tablet, 1 GM PO ACHS, (Reported) Patient Home Medication List Home Medication List Reviewed: Yes Physical Exam-Cardiology Physical Exam Vital Signs/I&O Capillary Refill : Less Than 3 Seconds Constitutional: appears stated age, AAO x 3; No apparent distress; well- developed, well-nourished HEENT: PERRL; No discharge; hearing is well preserved, oral hygience is good; No ulceration, No xanthelasmas are seen Neck: No carotid bruit; carotid pulses are 2 + bilaterally Respiratory: chest is bilaterally symmetric, lungs clear to auscultation; No crackles, No rhonchi, No rales, No stridor, No wheezing, No pleural rub Cardiovascular: regular rate-rhythm; No irregularly irregular, No extra beats, No parasternal heave is noted, No bradycardia, No tachycardia; S1 and S2; No gallop/S4, No diastolic murmur, No systolic murmur Gastrointestinal: soft, audible bowel sounds; No spleenomegaly Rectal: deferred Extremities: normal range of motion, non-tender, normal inspection; No clubbing, No cyanosis; no lower extremity edema bilateral; No significant edema Neurologic/Psychiatric: no motor/sensory deficits, alert, oriented x 3, power is 5/5 both on sides Skin: normal color, warm/dry; No rash, No ulcerations Data Review Labs ECG Impression ECG Initial ECG Rhythm: Normal Sinus Initial ECG Impression: Normal A/P-Cardiology Assessment/Admission Diagnosis Possible acute stroke, Active smoking Plan Telemetry did not reveal atrial fibrillation. Echocardiogram showed normal LV function with no evidence of intracardiac shunting. CT head was negative, however MRI could not be done since the patient refused to get transferred to [facility] for an MRI. Therefore we are unclear whether the patient had an acute stroke or not. Will discharge the patient on aspirin 325 mg. Will recommend that she follows with the neurology. I recommended follow-up with cardiology for an event monitor to rule out atrial fibrillation. Active smoking: Strongly recommended to quit. Hyperlipidemia: Started on statin therapy. Thank you for your consultation. Please call me if you have any questions. Tana Daugherty MD, FACP, FACC, FSCAI, FHRS, CCDS Interventional Cardiology Cardiac Electrophysiology Vascular Medicine and Endovascular Interventions Clinical Quality Measures DVT/VTE Risk/Contraindication: Risk Factor Score Per Nursin RFS Level Per Nursing on Admit: 3=High Sanjay DAUGHERTY MD February 15, 2020 21:08
== END 2020-02-15 14:30 | disposition home or self-care (01) ==
LOC: EDUNIT# 18:45 → ER 18:46 → 4TH 20:10
PROVIDERS: ADMIT Internal Medicine; ATTEND Internal Medicine
DX: R53.1 Weakness (principal); M32.9 Systemic lupus erythematosus, unspecified; I25.10 Atherosclerotic heart disease of native coronary artery without angina pectoris; I25.2 Old myocardial infarction; I10 Essential (primary) hypertension; I00 Rheumatic fever without heart involvement; J30.9 Allergic rhinitis, unspecified; N39.0 Urinary tract infection, site not specified; K21.9 Gastro-esophageal reflux disease without esophagitis; K59.09 Other constipation; K52.9 Noninfective gastroenteritis and colitis, unspecified; G40.909 Epilepsy, unspecified, not intractable, without status epilepticus; G89.29 Other chronic pain; M54.9 Dorsalgia, unspecified; M79.7 Fibromyalgia; M19.90 Unspecified osteoarthritis, unspecified site; F17.210 Nicotine dependence, cigarettes, uncomplicated; F32.9 Major depressive disorder, single episode, unspecified; Z91.040 Latex allergy status; Z88.5 Allergy status to narcotic agent; Z91.041 Radiographic dye allergy status; Z88.8 Allergy status to other drugs, medicaments and biological substances; Z79.891 Long term (current) use of opiate analgesic; Z90.89 Acquired absence of other organs; Z90.710 Acquired absence of both cervix and uterus
CPT/HCPCS: 36415; 70450; 71045; 80053; 80061; 80306; 81000; 82962; 84484; 85025; 85379; 85610; 85730; 93005; 93041; 93306; G0378

== ENCOUNTER 2021-09-04 17:47 | Emergency (ER) | payer SELFPAY ==
[~2021-09-04] VITALS: Ht 157.5 cm; Wt 77.0 kg
[~2021-09-04 17:47] MED LIST changes: +ASPI325T32 PO; +ATOR80TA76 PO; +CLIN-144 PO; -CLIN300C11 PO; +MTP25TSR PO
[2021-09-04] MEDS ORDERED: NS IV 1000 ML 1,000 ML IV STA (18:13)
[2021-09-04] MEDS ORDERED: KETOROLAC 30 MG/ML VIAL IVP STA (18:13)
[2021-09-04] MEDS ORDERED: guaiFENesin/DM (ROBITUSSIN DM) 10 ML UDC PO STA (18:13)
[2021-09-04] MEDS ORDERED: ONDANSETRON 4 MG/2 ML (SDV) Z0FRAN IVP STA (18:13)
[2021-09-04 18:19] LABS: BASOPHILS % (AUTO) 1 % (0-10); EOSINOPHILS % (AUTO) 1 % (0-10); HEMATOCRIT 46 % (35-52); HEMOGLOBIN 15.4 g/dL (11.5-16.0); LYMPHOCYTES % (AUTO) 19 % (12-44); MEAN CORPUSCULAR HEMOGLOBIN 30 pg (25-34); MEAN CORPUSCULAR HGB CONC 33 g/dL (32-36); MEAN CORPUSCULAR VOLUME 88 fL (80-99); MEAN PLATELET VOLUME 11.7 fL (9.0-12.2); MONOCYTES % (AUTO) 18 % (0-12); NEUTROPHILS # (AUTO) 3.4 10^3/uL (1.8-7.8); NEUTROPHILS % (AUTO) 61 % (42-75); PLATELET COUNT 194 10^3/uL (130-400); WHITE BLOOD COUNT 5.6 10^3/uL (4.3-11.0)
--- NOTE | 2021-09-04 18:19 | ED Cough/URI ---
General Chief Complaint: COVID19 Suspect/Confirmed Stated Complaint: COVID +, N/V,BODY ACHES,COUGH, CHEST DISCOMFORT Source: patient Exam Limitations: no limitations History of Present Illness Date Seen by Provider: Sep 04, 2021 Time Seen by Provider: 18:05 Initial Comments Patient is a 41-year-old female who presents to the emergency department today with a chief complaint of fever, cough, mild shortness of breath, body aches, nausea vomiting, generalized malaise. Patient was diagnosed with Covid at [facility] yesterday. Her teenage son was diagnosed last week. Patient states she has not really been able to eat or drink and has loss of appetite. She had diarrhea yesterday but none today. She endorses a little burning with urination. Patient states she was also diagnosed with strep throat yesterday and was given "a shot". Patient has moderate headache. She continues to be nauseated. She is a smoker but states she has not smoked at all today. She has a history of lupus. She also takes medication for rapid heartbeat/hypertension. She is status post hysterectomy. She has been taking some [id number] all natural remedies for her cough and body aches. She states they are not working. 2 Tylenol tablets at 4 PM today. All other review of systems reviewed and negative except as stated. Timing/Duration: yesterday Severity/Quality: moderate, dry cough Prior Episodes/Possible Cause: illness exposure Associated Symptoms: chest pain/soreness, cough, fever/chills, headache, muscle aches, nasal congestion, nasal drainage, sore throat Allergies and Home Medications Allergies Coded Allergies: Iodinated Contrast Media (Verified Allergy, Severe, ANAPHYLAXIS, 02/14/20) codeine (Unverified Allergy, Unknown, 02/14/20) latex (Verified Allergy, Unknown, 02/14/20) meperidine HCl (Verified Allergy, Unknown, 02/14/20) Patient Home Medication List Home Medication List Reviewed: Yes Aspirin (Aspirin EC) 325 Mg Tablet.dr 325 MG PO DAILY Prescribed by: TIGRE OSEI on 02/15/20 1302 Atorvastatin Calcium (Atorvastatin Calcium) 80 Mg Tablet, 80 MG PO DAILY Prescribed by: TIGRE OSEI on 02/15/20 1302 Hydroxychloroquine Sulfate (Hydroxychloroquine Sulfate) 200 Mg Tablet, 200 MG PO BID WITH MEALS Prescribed by: TIGRE OSEI on 02/15/20 1302 Metoprolol Succinate (Metoprolol Succinate) 25 Mg Tab.er.24h, 25 MG PO DAILY Prescribed by: TIGRE OSEI on 02/15/20 1302 Pantoprazole Sodium (Protonix) 40 Mg Tablet.dr, 40 MG PO BID, (Reported) Entered as Reported by: JOÃO VARELA on 04/27/13 1325 Sucralfate (Carafate) 1 Gm Tablet, 1 GM PO ACHS, (Reported) Entered as Reported by: KAMILLE BOSWELL on 02/17/17 1220 Review of Systems Review of Systems Constitutional: see HPI EENTM: no symptoms reported Respiratory: cough, short of breath Cardiovascular: chest pain ("soreness') Gastrointestinal: diarrhea, nausea Genitourinary: dysuria : No Musculoskeletal: muscle cramps Skin: no symptoms reported Psychiatric/Neurological: Headache All Other Systems Reviewed Negative Unless Noted: Yes Past Gkhjhym-Difrrr-Cjqvfl Hx Immunizations Up To Date Tetanus Booster (TDap): More than 5yrs Seasonal Allergies Seasonal Allergies: Yes Past Medical History Surgeries: Yes (EGD X 3; LAPAROSCOPIES WITH ABLATION OF ENDOMETRIOSIS X 3; HYST/BSO) Abdominal, Appendectomy, Gallbladder, Hysterectomy, Oophorectomy Respiratory: Yes Pneumonia, Chronic Bronchitis Cardiac: Yes Heart Attack, Heart Murmur, Hypertension, Rheumatic Fever, Syncope Neurological: Yes Seizure Disorder Reproductive Disorders: Yes (CERVICAL DYSPLASIA; ENDOMETRIOSIS) Female Reproductive Disorders: 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, Ovarian Cyst [employer] History: Hysterectomy Sexually Transmitted Disease: No HIV/AIDS: No Genitourinary: Yes Kidney Stones, UTI-Chronic Gastrointestinal: Yes Gastroesophageal Reflux, Chronic Constipation, Chronic Diarrhea, Ulcer, Gall Bladder Disease, Irritable Bowel Musculoskeletal: Yes Arthritis, Fibromyalgia, Chronic Back Pain Endocrine: Yes Lupus HEENT: No Loss of Vision: Denies Hearing Impairment: Denies Cancer: No Psychosocial: Yes Depression Integumentary: No Blood Disorders: No Family Medical History Alcoholism 03 MOTHER 09 BROTHER Chest pain 03 FATHER Congestive heart failure 03 FATHER Family history: Allergy 09 BROTHER boys daughter Family history: Arthritis 09 SISTER boys Family history: Asthma 03 MOTHER 09 BROTHER 09 BROTHER boys Family history: Diabetes mellitus 03 MOTHER Family history: Gastrointestinal disease 03 FATHER Family history: Hypertension 03 FATHER Family history: Thyroid disorder 03 MOTHER Headache 03 MOTHER boys daughter Hearing loss daughter History of - anemia daughter History of drug abuse 03 FATHER 09 BROTHER 09 BROTHER Kidney disease 03 FATHER No Family History of: Abdominal aortic aneurysm Sutton's disease Aphasia Cancer Cancer of colon Cataract Congenital heart disease Cystic fibrosis Dementia Dysphagia Family history: Alzheimer's disease Family history: Breast disease Family history: Cardiovascular disease Family history: Coronary thrombosis Family history: Glaucoma Family history: Osteoporosis Heart disease Hereditary disease History of - disorder History of - respiratory disease Human immunodeficiency virus (HIV) seropositivity Hypercholesterolemia Infertile Malignant neoplasm of lung Myocardial infarction Parkinson's disease Prostate cancer Psychotic disorder Seizure disorder Stroke Tuberculosis Visual impairment Heart Disease Physical Exam Vital Signs - First Documented 09/04/21 17:58 Temp 36.8 Pulse 113 Resp 22 B/P (MAP) 122/88 (99) Pulse Ox 98 O2 Delivery Room Air Capillary Refill : Height: 5'1.00" Weight: 164lbs. 0.0oz. 74.740688gp; 33.47 BMI Method:Actual General Appearance: WD/WN, no apparent distress Eyes: Bilateral Eye Normal Inspection, Bilateral Eye PERRL, Bilateral Eye EOMI HEENT: PERRL/EOMI, tonsillar exudate (minimal (right tonsil); erythema present) Neck: lymphadenopathy (R) Respiratory: lungs clear, normal breath sounds, no respiratory distress, no accessory muscle use Cardiovascular: regular rate, rhythm, tachycardia (102) Gastrointestinal: soft, tenderness (epigastric and suprapubic) Extremities: normal range of motion, non-tender, normal inspection, no pedal edema Neurologic/Psychiatric: no motor/sensory deficits, alert, normal mood/affect, oriented x 3 Skin: normal color, warm/dry Progress/Results/Core Measures Suspected Sepsis SIRS Temperature: Pulse: Respiratory Rate: Laboratory Tests 09/04/21 18:07: White Blood Count 5.6 Blood Pressure / Mean: Laboratory Tests 09/04/21 18:07: Creatinine 0.79, Platelet Count 194, Total Bilirubin 0.2 Results/Orders Lab Results Laboratory Tests Test 09/04/21 18:07 09/04/21 19:11 Range/Units White Blood Count 5.6 4.3-11.0 10^3/uL Red Blood Count 5.22 H 3.80-5.11 10^6/uL Hemoglobin 15.4 11.5-16.0 g/dL Hematocrit 46 35-52 % Mean Corpuscular Volume 88 80-99 fL Mean Corpuscular Hemoglobin 30 25-34 pg Mean Corpuscular Hemoglobin Concent 33 32-36 g/dL Red Cell Distribution Width 11.9 10.0-14.5 % Platelet Count 194 130-400 10^3/uL Mean Platelet Volume 11.7 9.0-12.2 fL Immature Granulocyte % (Auto) 0 % Neutrophils (%) (Auto) 61 42-75 % Lymphocytes (%) (Auto) 19 12-44 % Monocytes (%) (Auto) 18 H 0-12 % Eosinophils (%) (Auto) 1 0-10 % Basophils (%) (Auto) 1 0-10 % Neutrophils # (Auto) 3.4 1.8-7.8 10^3/uL Lymphocytes # (Auto) 1.0 1.0-4.0 10^3/uL Monocytes # (Auto) 1.0 0.0-1.0 10^3/uL Eosinophils # (Auto) 0.0 0.0-0.3 10^3/uL Basophils # (Auto) 0.0 0.0-0.1 10^3/uL Immature Granulocyte # (Auto) 0.0 0.0-0.1 10^3/uL Neutrophils % (Manual) 61 % Lymphocytes % (Manual) 16 % Monocytes % (Manual) 10 % Eosinophils % (Manual) 1 % Basophils % (Manual) 1 % Band Neutrophils 0 % Reactive Lymphocytes 11 % Blood Morphology Comment NORMAL Sodium Level 140 135-145 MMOL/L Potassium Level 4.0 3.6-5.0 MMOL/L Chloride Level 106 98-107 MMOL/L Carbon Dioxide Level 23 21-32 MMOL/L Anion Gap 11 5-14 MMOL/L Blood Urea Nitrogen 9 7-18 MG/DL Creatinine 0.79 0.60-1.30 MG/DL Estimat Glomerular Filtration Rate 79 BUN/Creatinine Ratio 11 Glucose Level 101 70-105 MG/DL Calcium Level 8.8 8.5-10.1 MG/DL Corrected Calcium 8.6 8.5-10.1 MG/DL Total Bilirubin 0.2 0.1-1.0 MG/DL Aspartate Amino Transf (AST/SGOT) 61 H 5-34 U/L Alanine Aminotransferase (ALT/SGPT) 66 H 0-55 U/L Alkaline Phosphatase 79 40-136 U/L Total Protein 7.5 6.4-8.2 GM/DL Albumin 4.2 3.2-4.5 GM/DL Urine Color YELLOW Urine Clarity CLEAR Urine pH 6.5 5-9 Urine Specific [place] 1.015 L 1.016-1.022 Urine Protein NEGATIVE NEGATIVE Urine Glucose (UA) NEGATIVE NEGATIVE Urine Ketones NEGATIVE NEGATIVE Urine Nitrite NEGATIVE NEGATIVE Urine Bilirubin NEGATIVE NEGATIVE Urine Urobilinogen 0.2 < = 1.0 MG/DL Urine Leukocyte Esterase 2+ H NEGATIVE Urine RBC (Auto) NEGATIVE NEGATIVE Urine RBC NONE /HPF Urine WBC 5-10 H /HPF Urine Squamous Epithelial Cells 0-2 /HPF Urine Renal Epithelial Cells 0-2 /HPF Urine Crystals NONE /LPF Urine Bacteria NEGATIVE /HPF Urine Casts NONE /LPF Urine Mucus NEGATIVE /LPF Urine Culture Indicated YES My Orders Orders - JOON CARTAGENA MD Ed Iv/Invasive Line Start (09/04/21 18:13) Cbc With Automated Diff (09/04/21 18:13) Comprehensive Metabolic Panel (09/04/21 18:13) Chest 1 View, Ap/Pa Only (09/04/21 18:13) Ketorolac Injection (Toradol Injection) (09/04/21 18:13) Ondansetron Injection (Zofran Injectio (09/04/21 18:13) Guaifenesin/Dm Syrup (Robitussin Dm Syru (09/04/21 18:13) Ns Iv 1000 Ml (Sodium Chloride 0.9%) (09/04/21 18:13) Ua Culture If Indicated (09/04/21 18:19) Manual Differential (09/04/21 18:07) Urine Culture (09/04/21 19:11) Vital Signs/I&O 09/04/21 17:58 Temp 36.8 Pulse 113 Resp 22 B/P (MAP) 122/88 (99) Pulse Ox 98 O2 Delivery Room Air Capillary Refill : Progress Note : Time: 19:46 Progress Note I have reviewed the patient's labs. She does have evidence of mild urinary tract infection, Keflex is given and prescribed. We will send a prescription for Zofran over to the [facility] pharmacy as well. I did discuss monoclonal antibody infusion with the patient. We discussed that it is still under emergency use authorization under the FDA. She has read the fax sheet for patients and caregivers. She is interested in being scheduled for the infusion. Patient will be discharged home with encouragement to drink lots of fluids. To finish her antibiotics. And return precautions have been given. Diagnostic Imaging Diagonstic Imaging: Xray Plain Films/CT/US/NM/MRI: chest [facility] [place], [place] NAME: CECELIA MONCADA [facility] REC#: [id number] PT STATUS: REG ER : 1980 PHYSICIAN: JOON CARTAGENA MD ADMIT DATE: 09/04/21/ER Signed Date of Exam:09/04/21 CHEST 1 VIEW, AP/PA ONLY PATIENT HISTORY: SOB cough Covid pos. TECHNIQUE: Single frontal view of the chest. COMPARISON: 02/14/2020. FINDINGS: The lung volumes are normal. No focal consolidation is seen. No large pleural effusion or pneumothorax is seen. The cardiomediastinal silhouette is normal in size and contour. No acute osseous abnormality is seen. IMPRESSION: No acute pulmonary abnormality seen. Dictated by: Dictated on workstation # [id number] Dict: 09/04/211855 Trans: 09/04/211909 [facility] [id number] Interpreted by: MARY GILLIAM MD Electronically signed by: MARY GILLIAM MD 09/04/211909 Departure Impression Primary Impression: COVID-19 Additional Impression: UTI (urinary tract infection) Qualified Codes: N30.00 - Acute cystitis without hematuria Disposition: HOME, SELF-CARE Condition: Stable Departure-Patient Inst. Decision time for Depature: 19:24 Referrals: [facility] (PCP/Family) Primary Care Physician Patient Instructions: COVID-19 Overview, Urinary Tract Infection, Adult ED Add. Discharge Instructions: Drink lots of fluids to stay well-hydrated. I have set up the monoclonal antibody infusion order for you. The pharmacy should call you on Monday morning with an appointment time to have this done. If you do not hear for them please call up to the hospital in order to get this scheduled. I have also [facility] You will need to take this 3 times a day for 5 days. I have sent a prescription for nausea medications to the pharmacy as well. Return to the emergency department for reevaluation if you have any fever, worsening shortness of breath, abdominal pain, vomiting or any other emergent concerning symptoms. Scripts Ondansetron (Ondansetron Odt) 4 Mg Tab.rapdis 4 MG PO Q8H, #15 TAB Prov: JOON CARTAGENA MD 09/04/21 Cephalexin (Cephalexin) 500 Mg Tablet 500 MG PO TID, #15 TAB Prov: JOON CARTAGENA MD 09/04/21 JOON CARTAGENA MD Sep 04, 2021 18:19
[2021-09-04 18:32] LABS: ALBUMIN 4.2 GM/DL (3.2-4.5)
[2021-09-04 18:34] LABS: CALCIUM 8.8 MG/DL (8.5-10.1)
[2021-09-04 18:35] LABS: TOTAL PROTEIN 7.5 GM/DL (6.4-8.2)
[2021-09-04 18:37] LABS: BILIRUBIN,TOTAL 0.2 MG/DL (0.1-1.0)
[2021-09-04 18:38] LABS: CREATININE SERUM 0.79 MG/DL (0.60-1.30)
[2021-09-04 18:53] LABS: BAND NEUTROPHILS 0 %; BASOPHILS % (MANUAL) 1 %; EOSINOPHILS % (MANUAL) 1 %; LYMPHOCYTES % (MANUAL) 16 %; MONOCYTES % (MANUAL) 10 %; NEUTROPHILS % (MANUAL) 61 %; RBC MORPH NORMAL; REACTIVE LYMPHOCYTES 11 %
--- NOTE | 2021-09-04 19:00 | Diagnostic Imaging Report ---
PATIENT HISTORY: SOB cough Covid pos. TECHNIQUE: Single frontal view of the chest. COMPARISON: 02/14/2020. FINDINGS: The lung volumes are normal. No focal consolidation is seen. No large pleural effusion or pneumothorax is seen. The cardiomediastinal silhouette is normal in size and contour. No acute osseous abnormality is seen. IMPRESSION: No acute pulmonary abnormality seen. Dictated by: Dictated on workstation # [id number]
[2021-09-04 19:17] LABS: BILIRUBIN,URINE NEGATIVE (NEGATIVE); CLARITY,URINE CLEAR; COLOR,URINE YELLOW; GLUCOSE, URINE (UA) NEGATIVE (NEGATIVE); KETONES,URINE NEGATIVE (NEGATIVE); LEUKOCYTE ESTERASE ,URINE 2+ (NEGATIVE); NITRITE,URINE NEGATIVE (NEGATIVE); PH,URINE 6.5 (5-9); PROTEIN,URINE NEGATIVE (NEGATIVE)
[2021-09-04 19:24] LABS: BACTERIA,URINE NEGATIVE /HPF; RENAL EPITHELIAL CELLS,URINE 0-2 /HPF; SQUAMOUS EPITHELIAL CELL,UR 0-2 /HPF
[2021-09-04] MEDS ORDERED: CEPH500T PO (19:43)
[2021-09-04] MEDS ORDERED: ONDA4TAB11 PO (19:45)
[2021-09-04] MEDS ORDERED: CEPHALEXIN 250 MG (KEFLEX) CAP PO STA (19:47)
[2021-09-04 19:57] VITALS: BP 104/50
== END 2021-09-04 19:57 | disposition home or self-care (01) ==
LOC: EDUNIT# 17:47 → ER 17:49
DX: U07.1 COVID-19 (principal); N39.0 Urinary tract infection, site not specified; R00.0 Tachycardia, unspecified; I25.2 Old myocardial infarction; I10 Essential (primary) hypertension; K21.9 Gastro-esophageal reflux disease without esophagitis; Z79.899 Other long term (current) drug therapy; Z79.82 Long term (current) use of aspirin
CPT/HCPCS: 36415; 71045; 80053; 81000; 85007; 85027; 87088

== ENCOUNTER 2021-09-08 10:16 | Outpatient (CLI) | payer SELFPAY ==
[~2021-09-08] VITALS: Ht 154.9 cm; Wt 79.5 kg
[~2021-09-08 10:16] MED LIST changes: +CEPH500T PO
[2021-09-08] MEDS ORDERED: ONDANSETRON 4 MG/2 ML (SDV) Z0FRAN IV PRN (10:30)
[2021-09-08] MEDS ORDERED: ACETAMINOPHEN 500 MG TAB (TYLENOL) PO PRN (10:30)
[2021-09-08] MEDS ORDERED: CASIRIVIMAB/IMDEVIMAB 1,200 MG in NS (IVPB) 250 ML IV ONE (10:30)
[2021-09-08] MEDS ORDERED: EPINEPHrine INJECTION 1 MG/ML AMP IM PRN (10:30)
[2021-09-08] MEDS ORDERED: diphenhydrAMINE 50 MG/ML INJ (BENADRYL) IV PRN (10:30)
[2021-09-08 11:33] VITALS: BP 125/78
== END 2021-09-08 12:01 | disposition home or self-care (01) ==
LOC: INFUSION 10:16
PROVIDERS: ATTEND Emergency Medicine
DX: U07.1 COVID-19 (principal)

== ENCOUNTER 2021-09-09 08:15 | Emergency (ER) | payer SELFPAY ==
[~2021-09-09] VITALS: Ht 157.5 cm; Wt 79.4 kg
[2021-09-09] MEDS ORDERED: LACTATED RINGERS 1,000 ML IV ONE (08:48)
[2021-09-09] MEDS ORDERED: FAMOTIDINE 20 MG (PEPCID) TABLET PO STA (08:49)
[2021-09-09] MEDS ORDERED: LACTATED RINGERS 1,000 ML IV STA ×2 (08:49→10:01)
[2021-09-09] MEDS ORDERED: KETOROLAC 30 MG/ML VIAL IVP STA (08:49)
[2021-09-09] MEDS ORDERED: ONDANSETRON 4 MG/2 ML (SDV) Z0FRAN ONE (08:49)
[2021-09-09] MEDS ORDERED: cefTRIAXone 1 GM PRE-MIX 50 ML IV STA (08:49)
[2021-09-09] MEDS ORDERED: FAMOTIDINE 20MG/2ML IV (PEPCID) ONE (08:50)
[2021-09-09] MEDS ORDERED: KETOROLAC 30 MG/ML VIAL ONE (08:50)
[2021-09-09] MEDS ORDERED: cefTRIAXone 1 GM PRE-MIX 50 ML IV ONE (08:51)
[2021-09-09 08:57] LABS: BASOPHILS % (AUTO) 0 % (0-10); HEMOGLOBIN 14.4 g/dL (11.5-16.0); MEAN PLATELET VOLUME 11.9 fL (9.0-12.2)
--- NOTE | 2021-09-09 08:58 | ED General ---
General Chief Complaint: COVID19 Suspect/Confirmed Stated Complaint: COVID POSITIVE,N/V,BODY ACHES Nursing Triage Note: PT AMB TO [facility] 10 WITH COMPLAINT OF COVID POSITVE. STATES TESTED POSITIVE ON MONDAY AND HAD THE INFUSION YESTERDAY. STATES ALSO BEING TREATED FOR UTI AND STREP. STATES IS HAVING WORSENING ABD PAIN, N/V. Source of Information: Patient Exam Limitations: No Limitations History of Present Illness Date Seen by Provider: Sep 09, 2021 Time Seen by Provider: 08:37 Initial Comments Here with reports of being Covid positive. Stated that she tested positive last Monday, 6 days ago. She did receive monoclonal antibody infusion yesterday. Does report nausea and vomiting as well as abdominal cramping. She does have cough. Today she feels a little worse. She was also diagnosed apparently with urinary tract infection was started on cephalexin but has not been able to take that. She does have lupus and is on chronic steroids but has not taken that for a week. Main concern is that her nausea and vomiting is limiting her ability to stay hydrated and her cramping is worsening with that. Does have history of hysterectomy, appendectomy and cholecystectomy. She does have history of smoking but has not smoked in 6 days and is planning on quitting. Denies blood in the vomit. Denies diarrhea. Timing/Duration: 6-7 Days, Getting Worse Severity: Moderate Associated Systoms: Cough, Fever/Chills, Malaise, Nausea/Vomiting; No Shortness of Air Allergies and Home Medications Allergies Coded Allergies: Iodinated Contrast Media (Verified Allergy, Severe, ANAPHYLAXIS, 02/14/20) codeine (Unverified Allergy, Unknown, 02/14/20) latex (Verified Allergy, Unknown, 02/14/20) meperidine HCl (Verified Allergy, Unknown, 02/14/20) Patient Home Medication List Home Medication List Reviewed: Yes Aspirin (Aspirin EC) 325 Mg Tablet.dr, 325 MG PO DAILY Prescribed by: TIGRE OSEI on 02/15/20 1302 Atorvastatin Calcium (Atorvastatin Calcium) 80 Mg Tablet, 80 MG PO DAILY Prescribed by: TIGRE OSEI on 02/15/20 1302 Cephalexin (Cephalexin) 500 Mg Tablet, 500 MG PO TID Prescribed by: JOON CARTAGENA on 09/04/211942 Hydroxychloroquine Sulfate (Hydroxychloroquine Sulfate) 200 Mg Tablet, 200 MG PO BID WITH MEALS Prescribed by: TIGRE OSEI on 02/15/20 1302 Metoprolol Succinate (Metoprolol Succinate) 25 Mg Tab.er.24h, 25 MG PO DAILY Prescribed by: TIGRE OSEI on 02/15/20 1302 Ondansetron (Ondansetron Odt) 4 Mg Tab.rapdis, 4 MG PO Q8H Prescribed by: JOON CARTAGENA on 09/04/21 194 Pantoprazole Sodium (Protonix) 40 Mg Tablet.dr, 40 MG PO BID, (Reported) Entered as Reported by: JOÃO VARELA on 04/27/13 1325 Sucralfate (Carafate) 1 Gm Tablet, 1 GM PO ACHS, (Reported) Entered as Reported by: KAMILLE BOSWELL on 02/17/17 1220 Review of Systems Review of Systems Constitutional: see HPI, chills, fever EENTM: nose congestion; No throat pain Respiratory: cough; No short of breath Cardiovascular: no symptoms reported Gastrointestinal: see HPI Genitourinary: see HPI, dysuria Musculoskeletal: muscle pain; No muscle weakness Skin: no symptoms reported All Other Systems Reviewed Negative Unless Noted: Yes Past Dpmdswe-Xlxckz-Leotoq Hx Patient Social History Tobacco Use?: Yes Tobacco type used: Cigarettes Substance use?: No Alcohol Use?: No Immunizations Up To Date Tetanus Booster (TDap): More than 5yrs First/Initial COVID19 Vaccinat: NONE Second COVID19 Vaccination Supa: NONE Third COVID19 Vaccination Date: NONE Seasonal Allergies Seasonal Allergies: Yes Past Medical History Surgery/Hospitalization HX: LUPUS Surgeries: Yes (EGD X 3; LAPAROSCOPIES WITH ABLATION OF ENDOMETRIOSIS X 3; HYST/BSO) Abdominal, Appendectomy, Gallbladder, Hysterectomy, Oophorectomy Respiratory: Yes Pneumonia, Chronic Bronchitis Cardiac: Yes Heart Attack, Heart Murmur, Hypertension, Rheumatic Fever, Syncope Neurological: Yes Seizure Disorder Reproductive Disorders: Yes (CERVICAL DYSPLASIA; ENDOMETRIOSIS) Female Reproductive Disorders: 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, Ovarian Cyst [employer] History: Hysterectomy Sexually Transmitted Disease: No HIV/AIDS: No Genitourinary: Yes Kidney Stones, UTI-Chronic Gastrointestinal: Yes Gastroesophageal Reflux, Chronic Constipation, Chronic Diarrhea, Ulcer, Gall Bladder Disease, Irritable Bowel Musculoskeletal: Yes Arthritis, Fibromyalgia, Chronic Back Pain Endocrine: Yes Lupus HEENT: No Loss of Vision: Denies Hearing Impairment: Denies Cancer: No Psychosocial: Yes Depression Integumentary: No Blood Disorders: No Family Medical History Reviewed Nursing Family Hx Alcoholism 03 MOTHER 09 BROTHER Chest pain 03 FATHER Congestive heart failure 03 FATHER Family history: Allergy 09 BROTHER boys daughter Family history: Arthritis 09 SISTER boys Family history: Asthma 03 MOTHER 09 BROTHER 09 BROTHER boys Family history: Diabetes mellitus 03 MOTHER Family history: Gastrointestinal disease 03 FATHER Family history: Hypertension 03 FATHER Family history: Thyroid disorder 03 MOTHER Headache 03 MOTHER boys daughter Hearing loss daughter History of - anemia daughter History of drug abuse 03 FATHER 09 BROTHER 09 BROTHER Kidney disease 03 FATHER Heart Disease Physical Exam Vital Signs Vital Signs - First Documented 09/09/21 08:31 Temp 36.7 Pulse 101 Resp 20 B/P (MAP) 127/77 (94) Pulse Ox 96 O2 Delivery Room Air Capillary Refill : Less Than 3 Seconds Height, Weight, BMI Height: 5'1.00" Weight: 164lbs. 0.0oz. 74.754428ed; 32.00 BMI Method:Actual General Appearance: WD/WN, Mild Distress HEENT: PERRL/EOMI, Pharynx Normal Neck: Non Tender, Supple Respiratory: Lungs Clear, Normal Breath Sounds, Other (O2 saturation 96% on room air while resting) Cardiovascular: No Murmur, Tachycardia Gastrointestinal: Soft, Tenderness (Epigastric) Back: Normal Inspection, No CVA Tenderness, No Vertebral Tenderness Extremity: Normal Range of Motion, Non Tender Neurologic/Psychiatric: Alert, Oriented x3, Normal Mood/Affect Skin: Normal Color, Warm/Dry Progress/Results/Core Measures Suspected Sepsis SIRS Temperature: Pulse: 101 Respiratory Rate: 20 Laboratory Tests 09/09/21 08:45: White Blood Count 5.1 Blood Pressure 127 /77 Mean: 94 Laboratory Tests 09/09/21 08:45: Creatinine 0.72, Platelet Count 128L, Total Bilirubin 0.4 Results/Orders Lab Results Laboratory Tests Test 09/09/21 08:45 Range/Units White Blood Count 5.1 4.3-11.0 10^3/uL Red Blood Count 4.89 3.80-5.11 10^6/uL Hemoglobin 14.4 11.5-16.0 g/dL Hematocrit 43 35-52 % Mean Corpuscular Volume 89 80-99 fL Mean Corpuscular Hemoglobin 29 25-34 pg Mean Corpuscular Hemoglobin Concent 33 32-36 g/dL Red Cell Distribution Width 11.9 10.0-14.5 % Platelet Count 128 L 130-400 10^3/uL Mean Platelet Volume 11.9 9.0-12.2 fL Immature Granulocyte % (Auto) 0 % Neutrophils (%) (Auto) 57 42-75 % Lymphocytes (%) (Auto) 32 12-44 % Monocytes (%) (Auto) 11 0-12 % Eosinophils (%) (Auto) 0 0-10 % Basophils (%) (Auto) 0 0-10 % Neutrophils # (Auto) 2.9 1.8-7.8 10^3/uL Lymphocytes # (Auto) 1.6 1.0-4.0 10^3/uL Monocytes # (Auto) 0.6 0.0-1.0 10^3/uL Eosinophils # (Auto) 0.0 0.0-0.3 10^3/uL Basophils # (Auto) 0.0 0.0-0.1 10^3/uL Immature Granulocyte # (Auto) 0.0 0.0-0.1 10^3/uL Percent Immature Platelet Fraction 5.9 0.0-7.6 % Sodium Level 141 135-145 MMOL/L Potassium Level 3.6 3.6-5.0 MMOL/L Chloride Level 107 98-107 MMOL/L Carbon Dioxide Level 23 21-32 MMOL/L Anion Gap 11 5-14 MMOL/L Blood Urea Nitrogen 12 7-18 MG/DL Creatinine 0.72 0.60-1.30 MG/DL Estimat Glomerular Filtration Rate 88 BUN/Creatinine Ratio 17 Glucose Level 114 H 70-105 MG/DL Calcium Level 8.4 L 8.5-10.1 MG/DL Corrected Calcium 8.6 8.5-10.1 MG/DL Total Bilirubin 0.4 0.1-1.0 MG/DL Aspartate Amino Transf (AST/SGOT) 48 H 5-34 U/L Alanine Aminotransferase (ALT/SGPT) 59 H 0-55 U/L Alkaline Phosphatase 68 40-136 U/L C-Reactive Protein High Sensitivity 3.64 H 0.00-0.50 MG/DL Total Protein 6.7 6.4-8.2 GM/DL Albumin 3.8 3.2-4.5 GM/DL My Orders Orders - PARKER,KATHLEEN D MD Ketorolac Injection (Toradol Injection) (09/09/21 08:49) Ceftriaxone 1 Gm Pre-Mix (Rocephin 1 Gm (09/09/21 08:49) Ondansetron Injection (Zofran Injectio (09/09/21 09:00) Famotidine Tablet (Pepcid Tablet) (09/09/21 08:49) Lactated Ringers (Lr 1000 Ml Iv Solution (09/09/21 08:49) Ed Iv/Invasive Line Start (09/09/21 08:49) Chest 1 View, Ap/Pa Only (09/09/21 08:49) Cbc With Automated Diff (09/09/21 08:49) Comprehensive Metabolic Panel (09/09/21 08:49) Hs C Reactive Protein (09/09/21 08:49) Lactated Ringers (Lr 1000 Ml Iv Solution (09/09/21 08:48) Ondansetron Injection (Zofran Injectio (09/09/21 08:49) Ketorolac Injection (Toradol Injection) (09/09/21 08:50) Famotidine Injection (Pepcid Injection) (09/09/21 08:50) Ceftriaxone 1 Gm Pre-Mix (Rocephin 1 Gm (09/09/21 08:51) Lactated Ringers (Lr 1000 Ml Iv Solution (09/09/21 10:01) Medications Given in ED Current Medications Medications Dose Ordered Sig/Amber Route Start Time Stop Time Status Last Admin Dose Admin Famotidine 20 mg STK-MED ONCE .ROUTE 09/09/21 08:50 09/09/21 08:51 DC 09/09/21 08:55 20 MG Ondansetron HCl 4 mg ONCE ONCE IVP 09/09/21 09:00 09/09/21 09:01 DC 09/09/21 08:55 4 MG Vital Signs/I&O 09/09/21 08:31 Temp 36.7 Pulse 101 Resp 20 B/P (MAP) 127/77 (94) Pulse Ox 96 O2 Delivery Room Air Capillary Refill : Less Than 3 Seconds Blood Pressure Mean: 94 Progress Note : Progress Note Seen and evaluated. IV, labs, chest x-ray, LR 1 L bolus, Zofran 4 mg IV, Toradol 30 mg IV and Pepcid 20 mg IV ordered. We will go ahead and give Rocephin 1 g IV as she has not been able to take her antibiotics (cephalexin) due to nausea and vomiting. Patient is not hypoxic nor is she hypotensive and only has slight increase in heart rate in the 90s. We will see how she responds to fluids. Patient would prefer not to get steroids right now and she has been off of them for essentially a week without adverse effect so we will hold at this point. This was considered and discussed. Monitor patient. 1123: Overall doing better. Second liter of fluid ordered and is running. Patient remains with O2 sats in the mid 90s. I did discuss return precautions with her. Discharged home with return precautions. Patient verbalized understanding of instructions and agreement with plan. Diagnostic Imaging Diagonstic Imaging: Xray Plain Films/CT/US/NM/MRI: chest Comments [facility]. [place], [place] NAME: CECELIA MONCADA [employer] REC#: [id number] PT STATUS: REG ER : 1980 PHYSICIAN: KATHLEEN CANALES MD ADMIT DATE: 09/09/21/ER Draft Date of Exam:09/09/21 CHEST 1 VIEW, AP/PA ONLY EXAMINATION: Chest 1 view HISTORY: COVID 19 COMPARISON: 09/04/2020 FINDINGS: The lungs are clear without edema or pneumonia. No pleural effusion or pneumothorax. Heart size is normal. IMPRESSION: 1. Clear lungs. Report was faxed to [facility] by naomi at 9:46AM. Dictated on workstation # [id number] Dict: 09/09/2143 Trans: 09/09/21 0946 NAOMI [id number] Interpreted by: KARMEN TEIXEIRA MD Electronically signed by: Departure Impression Primary Impression: COVID-19 virus infection Additional Impressions: Nausea and vomiting Qualified Codes: R11.2 - Nausea with vomiting, unspecified Dehydration Disposition: 01 HOME, SELF-CARE Condition: Stable Departure-Patient Inst. Decision time for Depature: 11:24 Referrals: [facility] (PCP/Family) Primary Care Physician Patient Instructions: Nausea and Vomiting, Adult (DC), COVID-19 ED, Dehydration, Adult (DC) Add. Discharge Instructions: All discharge instructions reviewed with patient and/or family. Voiced understanding. Drink plenty of fluids and get plenty of rest. You may drink fluids such as Gatorade or similar electrolyte containing fluids. Eat if you are able. Mo nitor your oxygen saturation while resting. Currently it is __95__ percent. If that starts to decline to the low 90s and certainly below 90, please return immediately to the emergency department for further evaluation. You may take ibuprofen 600 mg every 8 hours as needed for fever or pain. You may take Tylenol/acetaminophen 1000 mg every 8 hours as needed for fever or pain. Return for worse pain, fever, vomiting, weakness, breathing problems or other concerns as needed. KATHLEEN CANALES MD Sep 09, 2021 08:58
[2021-09-09 08:59] LABS: EOSINOPHILS % (AUTO) 0 % (0-10); HEMATOCRIT 43 % (35-52); LYMPHOCYTES # (AUTO) 1.6 10^3/uL (1.0-4.0); LYMPHOCYTES % (AUTO) 32 % (12-44); MEAN CORPUSCULAR HEMOGLOBIN 29 pg (25-34); MEAN CORPUSCULAR HGB CONC 33 g/dL (32-36); MEAN CORPUSCULAR VOLUME 89 fL (80-99); MONOCYTES # (AUTO) 0.6 10^3/uL (0.0-1.0); MONOCYTES % (AUTO) 11 % (0-12); NEUTROPHILS # (AUTO) 2.9 10^3/uL (1.8-7.8); NEUTROPHILS % (AUTO) 57 % (42-75); PLATELET COUNT 128 10^3/uL (130-400); WHITE BLOOD COUNT 5.1 10^3/uL (4.3-11.0)
[2021-09-09] MEDS ORDERED: ONDANSETRON 4 MG/2 ML (SDV) Z0FRAN IVP ONE ×2 (09:00→13:15)
[2021-09-09 09:05] LABS: ALBUMIN 3.8 GM/DL (3.2-4.5); POTASSIUM 3.6 MMOL/L (3.6-5.0)
[2021-09-09 09:06] LABS: CALCIUM 8.4 MG/DL (8.5-10.1)
[2021-09-09 09:42] LABS: BILIRUBIN,TOTAL 0.4 MG/DL (0.1-1.0); CREATININE SERUM 0.72 MG/DL (0.60-1.30); TOTAL PROTEIN 6.7 GM/DL (6.4-8.2)
--- NOTE | 2021-09-09 09:46 | Diagnostic Imaging Report ---
EXAMINATION: Chest 1 view HISTORY: COVID 19 COMPARISON: 09/04/2020 FINDINGS: The lungs are clear without edema or pneumonia. No pleural effusion or pneumothorax. Heart size is normal. IMPRESSION: 1. Clear lungs. Report was faxed to [facility] by félix at 9:46AM. Dictated by: Dictated on workstation # [id number]
[2021-09-09 13:25] VITALS: BP 118/76
== END 2021-09-09 13:23 | disposition home or self-care (01) ==
LOC: EDUNIT# 08:15 → ER 08:16
DX: U07.1 COVID-19 (principal); R11.2 Nausea with vomiting, unspecified; E86.0 Dehydration; I25.2 Old myocardial infarction; I10 Essential (primary) hypertension; K21.9 Gastro-esophageal reflux disease without esophagitis; Z72.0 Tobacco use; Z79.899 Other long term (current) drug therapy; Z79.82 Long term (current) use of aspirin
CPT/HCPCS: 36415; 71045; 80053; 85025; 86141

== ENCOUNTER 2022-02-22 11:36 | Emergency (ER) | payer SELFPAY ==
[~2022-02-22] VITALS: Ht 160 cm; Wt 77.0 kg
--- NOTE | 2022-02-22 11:59 | ED Neurological Problem ---
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 She has a history of a TIA, heart attack, epilepsy with her last seizure many years ago. She states she is on Topamax for this and follows at [facility]. Her daughter states she is not the best of taking her medications. Staff noticed her behaving oddly and called her daughter at 11:00, about 45 minutes prior to arrival. She says she feels like she is in a dream and sometimes this precipitates into seizures. She also feels like for the past week she has been going into a lupus flare with rash on her arms and increasing pain in her knees and ankles. She has seen neurology in the past in [place] but daughter is not sure what kind of work-up she has had. She does not follow-up routinely with her doctors nor take her medicines routinely partially because of her work schedule and also because she states she does not have health insurance. Patient has a history of lupus and possibly heart disease, anxiety and followed by Dr. Shahid for cardiology. Negative stress echocardiogram 2013. Previous notes are unclear whether the patient actually had a stroke or not as she did not transfer to nearby facility to get an MRI done. She was recommended to follow-up outpatient with neurology at the time of her discharge. She was noted to have hyperlipidemia and smokes. Allergies and Home Medications Allergies Coded Allergies: Iodinated Contrast Media (Verified Allergy, Severe, ANAPHYLAXIS, 02/14/20) codeine (Unverified Allergy, Unknown, 02/14/20) latex (Verified Allergy, Unknown, 02/14/20) meperidine HCl (Verified Allergy, Unknown, 02/14/20) Patient Home Medication List Home Medication List Reviewed: Yes Aspirin (Aspirin EC) 325 Mg Tablet., 325 MG PO DAILY Prescribed by: TIGRE OSEI on 02/15/20 1302 Atorvastatin Calcium (Atorvastatin Calcium) 80 Mg Tablet, 80 MG PO DAILY Prescribed by: TIGRE OSEI on 02/15/20 1302 Cephalexin (Cephalexin) 500 Mg Tablet, 500 MG PO TID Prescribed by: JOON CARTAGENA on 09/04/211942 Hydroxychloroquine Sulfate (Hydroxychloroquine Sulfate) 200 Mg Tablet, 200 MG PO BID WITH MEALS Prescribed by: TIGRE OSEI on 02/15/20 130 Metoprolol Succinate (Metoprolol Succinate) 25 Mg Tab.er.24h, 25 MG PO DAILY Prescribed by: TIGRE OSEI on 02/15/20 130 Ondansetron (Ondansetron Odt) 4 Mg Tab.rapdis, 4 MG PO Q8H Prescribed by: JOON CARTAGENA on 09/04/211944 Pantoprazole Sodium (Protonix) 40 Mg Tablet.dr, 40 MG PO BID, (Reported) Entered as Reported by: JOÃO VARELA on 04/27/13 1325 Sucralfate (Carafate) 1 Gm Tablet, 1 GM PO ACHS, (Reported) Entered as Reported by: KAMILLE BOSWELL on 02/17/17 1220 Review of Systems Review of Systems Constitutional: No chills, No diaphoresis, No fever; malaise Eyes: Denies Blindness, Denies Blurred Vision, Denies Drainage Ears, Nose, Mouth, Throat: denies ear pain, denies ear discharge; mouth pain (Dental pain left upper and lower teeth) Respiratory: No cough, No dyspnea on exertion Cardiovascular: No chest pain, No palpitations Gastrointestinal: No abdominal pain, No constipation, No diarrhea, No nausea Genitourinary: No discharge, No dysuria Musculoskeletal: No back pain, No joint pain All Other Systems Reviewed Negative Unless Noted: Yes Past Nmhogvv-Wexvsa-Ncewto Hx Patient Social History Tobacco Use?: No Use of E-Cig and/or Vaping dev: No Substance use?: No Alcohol Use?: No Immunizations Up To Date Tetanus Booster (TDap): More than 5yrs First/Initial COVID19 Vaccinat: NONE Second COVID19 Vaccination Supa: NONE Third COVID19 Vaccination Date: NONE Seasonal Allergies Seasonal Allergies: Yes Past Medical History Surgery/Hospitalization HX: LUPUS Surgeries: Yes (EGD X 3; LAPAROSCOPIES WITH ABLATION OF ENDOMETRIOSIS X 3; HYST/BSO) Abdominal, Appendectomy, Gallbladder, Hysterectomy, Oophorectomy Respiratory: Yes Pneumonia, Chronic Bronchitis Cardiac: Yes Heart Attack, Heart Murmur, Hypertension, Rheumatic Fever, Syncope Neurological: Yes Seizure Disorder Reproductive Disorders: Yes (CERVICAL DYSPLASIA; ENDOMETRIOSIS) Female Reproductive Disorders: 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, Ovarian 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 History: Hysterectomy Sexually Transmitted Disease: No HIV/AIDS: No Genitourinary: Yes Kidney Stones, UTI-Chronic Gastrointestinal: Yes Gastroesophageal Reflux, Chronic Constipation, Chronic Diarrhea, Ulcer, Gall Bladder Disease, Irritable Bowel Musculoskeletal: Yes Arthritis, Fibromyalgia, Chronic Back Pain Endocrine: Yes Lupus HEENT: No Loss of Vision: Denies Hearing Impairment: Denies Cancer: No Psychosocial: Yes Depression Integumentary: No Blood Disorders: No Family Medical History Alcoholism 03 MOTHER 09 BROTHER Chest pain 03 FATHER Congestive heart failure 03 FATHER Family history: Allergy 09 BROTHER boys daughter Family history: Arthritis 09 SISTER boys Family history: Asthma 03 MOTHER 09 BROTHER 09 BROTHER boys Family history: Diabetes mellitus 03 MOTHER Family history: Gastrointestinal disease 03 FATHER Family history: Hypertension 03 FATHER Family history: Thyroid disorder 03 MOTHER Headache 03 MOTHER boys daughter Hearing loss daughter History of - anemia daughter History of drug abuse 03 FATHER 09 BROTHER 09 BROTHER Kidney disease 03 FATHER No Family History of: Abdominal aortic aneurysm Olivier's disease Aphasia Cancer Cancer of colon Cataract Congenital heart disease Cystic fibrosis Dementia Dysphagia Family history: Alzheimer's disease Family history: Breast disease Family history: Cardiovascular disease Family history: Coronary thrombosis Family history: Glaucoma Family history: Osteoporosis Heart disease Hereditary disease History of - disorder History of - respiratory disease Human immunodeficiency virus (HIV) seropositivity Hypercholesterolemia Infertile Malignant neoplasm of lung Myocardial infarction Parkinson's disease Prostate cancer Psychotic disorder Seizure disorder Stroke Tuberculosis Visual impairment Heart Disease Physical Exam Vital Signs Vital Signs - First Documented 02/22/22 11:40 Temp 36.0 Pulse 88 Resp 40 B/P (MAP) 156/100 (118) Pulse Ox 97 Capillary Refill : Height, Weight, BMI Height: 5'1.00" Weight: 164lbs. 0.0oz. 74.033678pk; 32.00 BMI Method:Actual General Appearance: WD/WN, mild distress HEENT: PERRL/EOMI, normal ENT inspection, TMs normal, other (Extensive dental caries; negative for mandibular swelling, lymphadenopathy) Neck: full range of motion, supple, normal inspection Respiratory: lungs clear, normal breath sounds, no respiratory distress, no accessory muscle use Cardiovascular: normal peripheral pulses, regular rate, rhythm Gastrointestinal: normal bowel sounds, non tender, soft, no organomegaly Neurologic/Psychiatric: cap sewer II-XII nml as tested, no motor/sensory deficits, alert, normal mood/affect, oriented x 3, other (GCS 15, slowed mentation, slow to answer but no slurring speech.) Crainal Nerves: normal hearing, PERRL, abnormal speech (Decreased rate of speech but no slurred speech) Motor/Sensory: no motor deficit, no sensory deficit Skin: normal color, warm/dry Stroke Onset of Symptoms Date of Onset of Symptoms: February 22, 2022 Time of Symptom Onset: 11:00 Onset of Symptoms: Yes Symptoms onset unknown: No NIH Stroke Scale Assessment Select: Initial Level of Consciousness: 0=Alert (0), Level of Consciousness- Questions: 0=Answers both month/age (0), LOC Commands: 0=Performs both tasks (0), Gaze: Normal (0), Visual Santos: 0=No visual loss (0), Facial Movement (Facial Paresis): 0=Normal symmetrical mnt (0), Motor Function-Arms Right: 0=No drift (0), Motor Function-Arms Left: 0=No drift (0), Motor Function-Legs Right: 0=No drift (0), Motor Function-Legs Left: 0=No drift (0), Limb Ataxia: 0=Absent (0), Sensory: 0=Normal:no loss (0), Best Language: 0=No aphasia (0), Dysarthria: 0=Normal (0), Extinction & Inattention: 0=No abnormality (0), Total: 0 Stroke Thrombolytic Exclusion Age 18 or Over: Yes Acute intenal hemorrhage: No History of CVA: No Uncontrolled Coagulation Defec: No Intracranial Hemorrhage: No Severe Hypertension: No GI or Bleed: No Subarachnoid Hemorrhage: No Intracranial Neoplasm/Aneurysm: No Oral Anticoagulants: No Surgery or Trauma: No Puncture of Non-Compressible V: No Recent CPR: No Diabetic Hemorrhagic Retinopat: No Organ Biopsy: No Recent Obstetric Delivery: No Glucose: No Significant Hepatic Dysfunctio: No NIH Stoke Scale >22: No Bacterial Endocarditis: No Pericarditis: No Improving Symptoms: No Platelets: No TPA Contraindication: No IV - TPa Received IV - TPa Procedure Performed?: No (Insufficient benefits versus risk) Progress/Results/Core Measures Results/Orders Lab Results Laboratory Tests Test 02/22/22 11:44 02/22/22 12:03 02/22/22 12:40 Range/Units Glucometer 91 70-110 MG/DL White Blood Count 9.7 4.3-11.0 10^3/uL Red Blood Count 4.75 3.80-5.11 10^6/uL Hemoglobin 14.2 11.5-16.0 g/dL Hematocrit 43 35-52 % Mean Corpuscular Volume 90 80-99 fL Mean Corpuscular Hemoglobin 30 25-34 pg Mean Corpuscular Hemoglobin Concent 33 32-36 g/dL Red Cell Distribution Width 12.9 10.0-14.5 % Platelet Count 232 130-400 10^3/uL Mean Platelet Volume 11.1 9.0-12.2 fL Immature Granulocyte % (Auto) 0 % Neutrophils (%) (Auto) 58 42-75 % Lymphocytes (%) (Auto) 31 12-44 % Monocytes (%) (Auto) 6 0-12 % Eosinophils (%) (Auto) 4 0-10 % Basophils (%) (Auto) 1 0-10 % Neutrophils # (Auto) 5.7 1.8-7.8 10^3/uL Lymphocytes # (Auto) 3.0 1.0-4.0 10^3/uL Monocytes # (Auto) 0.6 0.0-1.0 10^3/uL Eosinophils # (Auto) 0.4 H 0.0-0.3 10^3/uL Basophils # (Auto) 0.1 0.0-0.1 10^3/uL Immature Granulocyte # (Auto) 0.0 0.0-0.1 10^3/uL Erythrocyte Sedimentation Rate 8 0-20 MM/HR Sodium Level 144 135-145 MMOL/L Potassium Level 3.7 3.6-5.0 MMOL/L Chloride Level 106 98-107 MMOL/L Carbon Dioxide Level 28 21-32 MMOL/L Anion Gap 10 5-14 MMOL/L Blood Urea Nitrogen 12 7-18 MG/DL Creatinine 0.76 0.60-1.30 MG/DL Estimat Glomerular Filtration Rate 100 BUN/Creatinine Ratio 16 Glucose Level 106 H 70-105 MG/DL Calcium Level 8.9 8.5-10.1 MG/DL Corrected Calcium 8.8 8.5-10.1 MG/DL Total Bilirubin 0.2 0.1-1.0 MG/DL Aspartate Amino Transf (AST/SGOT) 17 5-34 U/L Alanine Aminotransferase (ALT/SGPT) 18 0-55 U/L Alkaline Phosphatase 73 40-136 U/L C-Reactive Protein High Sensitivity 0.31 0.00-0.50 MG/DL Total Protein 6.8 6.4-8.2 GM/DL Albumin 4.1 3.2-4.5 GM/DL Serum Alcohol < 10 <10 MG/DL Urine Color YELLOW Urine Clarity CLEAR Urine pH 7.5 5-9 Urine Specific [place] 1.010 L 1.016-1.022 Urine Protein NEGATIVE NEGATIVE Urine Glucose (UA) NEGATIVE NEGATIVE Urine Ketones NEGATIVE NEGATIVE Urine Nitrite NEGATIVE NEGATIVE Urine Bilirubin NEGATIVE NEGATIVE Urine Urobilinogen 0.2 < = 1.0 MG/DL Urine Leukocyte Esterase NEGATIVE NEGATIVE Urine RBC (Auto) NEGATIVE NEGATIVE Urine RBC NONE /HPF Urine WBC NONE /HPF Urine Squamous Epithelial Cells NONE /HPF Urine Crystals NONE /LPF Urine Bacteria NEGATIVE /HPF Urine Casts NONE /LPF Urine Mucus NEGATIVE /LPF Urine Culture Indicated NO Urine Opiates Screen NEGATIVE NEGATIVE Urine Oxycodone Screen NEGATIVE NEGATIVE Urine Methadone Screen NEGATIVE NEGATIVE Urine Propoxyphene Screen NEGATIVE NEGATIVE Urine Barbiturates Screen NEGATIVE NEGATIVE Ur Tricyclic Antidepressants Screen NEGATIVE NEGATIVE Urine Phencyclidine Screen NEGATIVE NEGATIVE Urine Amphetamines Screen NEGATIVE NEGATIVE Urine Methamphetamines Screen NEGATIVE NEGATIVE Urine Benzodiazepines Screen NEGATIVE NEGATIVE Urine Cocaine Screen NEGATIVE NEGATIVE Urine Cannabinoids Screen NEGATIVE NEGATIVE My Orders Orders - CHAI STACY Ct Head Wo (02/22/22 11:53) Cbc With Automated Diff (02/22/22 11:53) Comprehensive Metabolic Panel (02/22/22 11:53) Hs C Reactive Protein (02/22/22 11:53) Erythrocyte Sedimentation Rate (02/22/22 11:53) Ua Culture If Indicated (02/22/22 11:53) Alcohol (02/22/22 11:53) Drug Screen Stat (Urine) (02/22/22 11:53) Continuous Ekg Monitoring (02/22/22 11:53) Ekg Tracing (02/22/22 11:53) Chest 1 View, Ap/Pa Only (02/22/22 11:53) Lorazepam Injection (Ativan Injection) (02/22/22 12:00) Lorazepam Injection (Ativan Injection) (02/22/22 12:01) Levetiracetam Injection (Keppra Injectio (02/22/22 12:05) Straight Cath For Spec.-Adult (02/22/22 12:10) Medications Given in ED Current Medications Medications Dose Ordered Sig/Amber Route Start Time Stop Time Status Last Admin Dose Admin Lorazepam 2 mg ONCE ONCE IVP 02/22/22 12:00 02/22/22 12:01 DC 02/22/22 12:02 2 MG Vital Signs/I&O 02/22/22 11:40 Temp 36.0 Pulse 88 Resp 40 B/P (MAP) 156/100 (118) Pulse Ox 97 Progress Progress Note #1: Time: 12:08 Progress Note The patient presented lethargic and appeared to be postictal but no one had witnessed any seizure activity. Is possible she was having partial seizures that precipitate into complex seizures. Initially we toyed with the idea of giving her half milligram of Ativan but at 1159 before we could administer any medications the patient had a 6-second long witnessed gran mal seizure. She was placed in recovery position and seizure precautions were initiated. 2 mg Ativan were given as well as a gram of Keppra. As it is unclear what dose of Topamax she is taking if any. We are going to initiate Keppra and put her out on that outpatient if we do not find any other underlying concerning issues. Plan to scan her head, get a chest x-ray and labs as well as a straight cath for urine. EKG. Aseptic vital signs. Because she is having a rash and joint pain a course of steroids would not be unwise as long as she is not having significant infection. She does have a tooth that she is complaining of in her left mandible and has extensive dental caries. At the very least some amoxicillin would be in order. She does not have any neurologic lateralizing symptoms to suggest stroke. An NIH was completed but tPA is not in order given the lack of benefit versus risks. Progress Note #2: Time: 12:55 Progress Note Patient was incontinent of urine and did let nurse know. She is alert although resting. No further seizure activity. Progress Note #3: Time: 14:00 Progress Note The patient is snoozing softly. Her questions were answered. She arouses easily and we gave her results. I suspect she is having just epilepsy and Henrique na start her on Keppra in addition to what ever dose of topiramate she is on. She is to follow-up in a couple weeks with her primary care doctor to discuss if she needs to continue the Keppra or adjust the dose of her topiramate. Initial ECG Impression Date: February 22, 2022 Initial ECG Impression Time: 12:52 Initial ECG Rate: 84 Initial ECG Rhythm: Normal Sinus Initial ECG Intervals: Normal Initial ECG Impression: Normal Comment Normal sinus rhythm without clinically relevant ST changes. Diagnostic Imaging Diagonstic Imaging: Xray Plain Films/CT/US/NM/MRI: chest Comments [facility] [place] NAME: CECELIA MONCADA [facility] REC#: [id number] PT STATUS: REG ER : 1980 PHYSICIAN: CHAI STACY MD ADMIT DATE: 02/22/22/ER Draft Date of Exam:02/22/22 CHEST 1 VIEW, AP/PA ONLY INDICATION: Altered mental status, delirium Frontal chest obtained at 12:56 p.m. and compared to 09/09/2021 Heart and mediastinal silhouette are normal in appearance. The lungs are clear. There is no pneumothorax or pleural fluid. IMPRESSION: Negative chest. Dictated on workstation # [id number] Dict: 02/22/22 1316 Trans: 02/22/22 1322 CV [id number] Interpreted by: ALFA TAYLOR MD Electronically signed by: Reviewed: Reviewed by Me Diagonstic Imaging: CT Plain Films/CT/US/NM/MRI: head Comments [facility] [place], [place] NAME: CECELIA MONCADA [facility] REC#: [id number] PT STATUS: REG ER : 1980 PHYSICIAN: CHAI STACY MD ADMIT DATE: 02/22/22/ER Draft Date of Exam:02/22/22 CT HEAD WO INDICATION: Altered mental status, question seizure activity. TECHNIQUE: Multiple contiguous axial images were obtained through the brain without the use of intravenous contrast. Auto Exposure Controls were utilized during the CT exam to meet ALARA standards for radiation dose reduction. Comparison made with 02/14/2020. FINDINGS: There are no extra-axial fluid collections. No intracranial hemorrhage. No intracranial mass or mass effect. No midline shift. The ventricles are normal in size and position. There were no focal parenchymal abnormalities in the brain. Calvarial windows appear unremarkable. IMPRESSION: Negative noncontrast brain CT, no change compared to the previous study. Dictated on workstation # [id number] Dict: 02/22/22 1311 Trans: 02/22/22 1321 [id number] Interpreted by: ALFA TAYLOR MD Electronically signed by: Reviewed: Reviewed by Me Departure Impression Primary Impression: Epilepsy Qualified Codes: G40.909 - Epilepsy, unspecified, not intractable, without status epilepticus Disposition: HOME, SELF-CARE Condition: Stable Departure-Patient Inst. Decision time for Depature: 14:01 Referrals: [facility] [place] ([place]/Family) Primary Care Physician Patient Instructions: Seizures, Adult (DC) Add. Discharge Instructions: Please call your primary care office and make a follow-up appointment in the next couple weeks. Discuss appropriate medications for your seizures. 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 Return to the ER if you have seizure activity lasting more than 5 minutes solid or you have [id number] seizures without ever waking up between seizures lasting more than 30 minutes. Scripts Levetiracetam (Keppra) 500 Mg Tablet 500 MG PO BID for 14 Days, #30 TAB 0 Refills Prov: CHAI STACY 02/22/22 Work/School Note: Work Release Form Date Seen in the Emergency Department: February 22, 2022 Return to Work: February 24, 2022 Restrictions: No Restrictions CHAI STACY February 22, 2022 11:59
[2022-02-22] MEDS ORDERED: LORazepam INJ 2 MG/ML (ATIVAN) VIAL IVP ONE (12:00)
[2022-02-22] MEDS ORDERED: LORazepam INJ 2 MG/ML (ATIVAN) VIAL ONE (12:01)
[2022-02-22 12:11] LABS: BASOPHILS # (AUTO) 0.1 10^3/uL (0.0-0.1); BASOPHILS % (AUTO) 1 % (0-10); EOSINOPHILS # (AUTO) 0.4 10^3/uL (0.0-0.3); EOSINOPHILS % (AUTO) 4 % (0-10); HEMATOCRIT 43 % (35-52); HEMOGLOBIN 14.2 g/dL (11.5-16.0); LYMPHOCYTES % (AUTO) 31 % (12-44); MEAN CORPUSCULAR HEMOGLOBIN 30 pg (25-34); MEAN CORPUSCULAR HGB CONC 33 g/dL (32-36); MEAN CORPUSCULAR VOLUME 90 fL (80-99); MEAN PLATELET VOLUME 11.1 fL (9.0-12.2); MONOCYTES # (AUTO) 0.6 10^3/uL (0.0-1.0); MONOCYTES % (AUTO) 6 % (0-12); NEUTROPHILS # (AUTO) 5.7 10^3/uL (1.8-7.8); NEUTROPHILS % (AUTO) 58 % (42-75); PLATELET COUNT 232 10^3/uL (130-400); WHITE BLOOD COUNT 9.7 10^3/uL (4.3-11.0)
[2022-02-22 12:26] LABS: ALBUMIN 4.1 GM/DL (3.2-4.5); CHLORIDE 106 MMOL/L (98-107); POTASSIUM 3.7 MMOL/L (3.6-5.0); SODIUM 144 MMOL/L (135-145)
[2022-02-22 12:28] LABS: CALCIUM 8.9 MG/DL (8.5-10.1)
[2022-02-22 12:29] LABS: GLUCOSE 106 MG/DL (70-105); TOTAL PROTEIN 6.8 GM/DL (6.4-8.2)
[2022-02-22 12:30] LABS: CARBON DIOXIDE 28 MMOL/L (21-32); ERYTHROCYTE SEDIMENTATION RATE 8 MM/HR (0-20)
[2022-02-22 12:31] LABS: BILIRUBIN,TOTAL 0.2 MG/DL (0.1-1.0)
[2022-02-22 12:32] LABS: ALKALINE PHOSPHATASE 73 U/L (40-136)
[2022-02-22 12:33] LABS: CREATININE SERUM 0.76 MG/DL (0.60-1.30); GFR ESTIMATED 100
[2022-02-22 12:34] LABS: BUN/CREATININE RATIO 16
[2022-02-22 12:36] LABS: ALANINE AMINOTRANSFERASE 18 U/L (0-55)
[2022-02-22 12:53] LABS: BILIRUBIN,URINE NEGATIVE (NEGATIVE); CLARITY,URINE CLEAR; COLOR,URINE YELLOW; GLUCOSE, URINE (UA) NEGATIVE (NEGATIVE); KETONES,URINE NEGATIVE (NEGATIVE); LEUKOCYTE ESTERASE ,URINE NEGATIVE (NEGATIVE); NITRITE,URINE NEGATIVE (NEGATIVE); PH,URINE 7.5 (5-9); PROTEIN,URINE NEGATIVE (NEGATIVE)
[2022-02-22 13:08] LABS: AMPHETAMINE SCREEN, URINE NEGATIVE (NEGATIVE); BARBITURATE SCREEN URINE NEGATIVE (NEGATIVE); BENZODIAZEPINES SCREEN URINE NEGATIVE (NEGATIVE); CANNABINOID SCREEN, URINE NEGATIVE (NEGATIVE); COCAINE SCREEN URINE NEGATIVE (NEGATIVE); METHADONE STAT NEGATIVE (NEGATIVE); OPIATE SCREEN URINE NEGATIVE (NEGATIVE); OXYCODONE STAT NEGATIVE (NEGATIVE); PROPOXYPHENE STAT NEGATIVE (NEGATIVE); TRICYCLIC ANTIDEPRESSANTS SCRE NEGATIVE (NEGATIVE)
[2022-02-22 13:13] LABS: BACTERIA,URINE NEGATIVE /HPF
--- NOTE | 2022-02-22 13:21 | Diagnostic Imaging Report ---
INDICATION: Altered mental status, question seizure activity. TECHNIQUE: Multiple contiguous axial images were obtained through the brain without the use of intravenous contrast. Auto Exposure Controls were utilized during the CT exam to meet ALARA standards for radiation dose reduction. Comparison made with 02/14/2020. FINDINGS: There are no extra-axial fluid collections. No intracranial hemorrhage. No intracranial mass or mass effect. No midline shift. The ventricles are normal in size and position. There were no focal parenchymal abnormalities in the brain. Calvarial windows appear unremarkable. IMPRESSION: Negative noncontrast brain CT, no change compared to the previous study. Dictated by: Dictated on workstation # [id number]
--- NOTE | 2022-02-22 13:23 | Diagnostic Imaging Report ---
INDICATION: Altered mental status, delirium Frontal chest obtained at 12:56 p.m. and compared to 09/09/2021 Heart and mediastinal silhouette are normal in appearance. The lungs are clear. There is no pneumothorax or pleural fluid. IMPRESSION: Negative chest. Dictated by: Dictated on workstation # [id number]
[2022-02-22] MEDS ORDERED: LEVE500T99 PO (14:06)
[2022-02-22 14:34] VITALS: BP 124/78
== END 2022-02-22 14:55 | disposition home or self-care (01) ==
LOC: EDUNIT# 11:36 → ER 11:38
DX: G40.909 Epilepsy, unspecified, not intractable, without status epilepticus (principal); F17.200 Nicotine dependence, unspecified, uncomplicated; Z86.73 Personal history of transient ischemic attack (TIA), and cerebral infarction without residual deficits; Z79.899 Other long term (current) drug therapy; Z28.310 Unvaccinated for COVID-19
CPT/HCPCS: 51701; 70450; 71045; 80053; 80306; 81000; 82947; 85025; 85652; 86141; 93005; 99284; G0480; 36415; 80320

== ENCOUNTER 2023-01-19 20:25 | Emergency (ER) | payer SELFPAY ==
[~2023-01-19] VITALS: Ht 160 cm; Wt 77.0 kg
[~2023-01-19 20:25] MED LIST changes: +LEVE500T99 PO
--- NOTE | 2023-01-19 20:44 | ED EENT ---
History of Present Illness General Chief Complaint: Dental Problems/Pain Stated Complaint: TOOTH PAIN Nursing Triage Note: reports continued jaw pain after dental extraction 01/09/23. reports given amoxicillin and z-pack without improvement. states she was sent here for a rocephin shot. Source: patient Exam Limitations: no limitations (RODRÍGUEZ FALLON APRN) History of Present Illness Date Seen by Provider: Jan 19, 2023 Time Seen by Provider: 20:33 Initial Comments 42-year-old female presents the ED with complaints of dental pain. She states that her dentist pulled her left lower molar last week and placed her on amoxicillin. She states that she was at the dentist on Monday with her son, and the dentist looked at her tooth and started her on azithromycin as well. She was told that if it did not improve, that she would need to come to the ER for a Rocephin shot. She states she has 1 more dose of azithromycin left, but she is not feeling any better. Her face does not really appear swollen, there is a bruise over her left lower jaw. She denies known fevers, but states she woke up sweating last night, and felt cold. Denies any chest pain, shortness of air, abdominal pain. (RODRÍGUEZ FALLON APRN) Allergies and Home Medications Allergies Coded Allergies: Iodinated Contrast Media (Verified Allergy, Severe, ANAPHYLAXIS, 02/14/20) codeine (Unverified Allergy, Unknown, 02/14/20) latex (Verified Allergy, Unknown, 02/14/20) meperidine HCl (Verified Allergy, Unknown, 02/14/20) Patient Home Medication List Home Medication List Reviewed: Yes (RODRÍGUEZ FALLON APRN) Aspirin (Aspirin EC) 325 Mg Tablet.dr, 325 MG PO DAILY Prescribed by: TIGRE OSEI on 02/15/20 1302 Atorvastatin Calcium (Atorvastatin Calcium) 80 Mg Tablet, 80 MG PO DAILY Prescribed by: TIGRE OSEI on 02/15/20 1302 Cephalexin (Cephalexin) 500 Mg Tablet, 500 MG PO TID Prescribed by: JOON CARTAGENA on 09/04/211942 Hydroxychloroquine Sulfate (Hydroxychloroquine Sulfate) 200 Mg Tablet, 200 MG PO BID WITH MEALS Prescribed by: TIGRE OSEI on 02/15/20 1302 Levetiracetam (Keppra) 500 Mg Tablet, 500 MG PO BID Prescribed by: CHAI STACY on 02/22/22 1406 Metoprolol Succinate (Metoprolol Succinate) 25 Mg Tab.er.24h, 25 MG PO DAILY Prescribed by: TIGRE OSEI on 02/15/20 1302 Ondansetron (Ondansetron Odt) 4 Mg Tab.rapdis, 4 MG PO Q8H Prescribed by: JOON CARTAGENA on 09/04/21 194 Pantoprazole Sodium (Protonix) 40 Mg Tablet.dr, 40 MG PO BID, (Reported) Entered as Reported by: JOÃO VARELA on 04/27/13 1325 Sucralfate (Carafate) 1 Gm Tablet, 1 GM PO ACHS, (Reported) Entered as Reported by: KAMILLE BOSWELL on 02/17/17 1220 Review of Systems Review of Systems Constitutional: see HPI (RODRÍGUEZ FALLON APRN) Past Xtofyzd-Aamcxh-Jjwpdz Hx Patient Social History Tobacco Use?: No Substance use?: No Alcohol Use?: No Pt feels they are or have been: No (RODRÍGUEZ FALLON APRN) Immunizations Up To Date Tetanus Booster (TDap): More than 5yrs First/Initial COVID19 Vaccinat: NONE Second COVID19 Vaccination Supa: NONE Third COVID19 Vaccination Date: NONE (RODRÍGUEZ FALLON APRN) Seasonal Allergies Seasonal Allergies: Yes (RODRÍGUEZ FALLON APRN) Past Medical History Surgery/Hospitalization HX: STROKE, ND, LUPUS, SEIZURE, bronchitis, depression, egd, appendectomy, cholecystectomy, hysterectomy, oopherectomy, dental extraction Surgeries: Yes (EGD X 3; LAPAROSCOPIES WITH ABLATION OF ENDOMETRIOSIS X 3; HYST/BSO) Abdominal, Appendectomy, Gallbladder, Hysterectomy, Oophorectomy Respiratory: Yes Pneumonia, Chronic Bronchitis Cardiac: Yes Heart Attack, Heart Murmur, Hypertension, Rheumatic Fever, Syncope Neurological: Yes Seizure Disorder Reproductive Disorders: Yes (CERVICAL DYSPLASIA; ENDOMETRIOSIS) Female Reproductive Disorders: 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, Ovarian Cyst 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 History: Hysterectomy Sexually Transmitted Disease: No HIV/AIDS: No Genitourinary: Yes Kidney Stones, UTI-Chronic Gastrointestinal: Yes Gastroesophageal Reflux, Chronic Constipation, Chronic Diarrhea, Ulcer, Gall Bladder Disease, Irritable Bowel Musculoskeletal: Yes Arthritis, Fibromyalgia, Chronic Back Pain Endocrine: Yes Lupus HEENT: No Loss of Vision: Denies Hearing Impairment: Denies Cancer: No Psychosocial: Yes Depression Integumentary: No Blood Disorders: No (RODRÍGUEZ FALLON APRN) Family Medical History Alcoholism 03 MOTHER 09 BROTHER Chest pain 03 FATHER Congestive heart failure 03 FATHER Family history: Allergy 09 BROTHER boys daughter Family history: Arthritis 09 SISTER boys Family history: Asthma 03 MOTHER 09 BROTHER 09 BROTHER boys Family history: Diabetes mellitus 03 MOTHER Family history: Gastrointestinal disease 03 FATHER Family history: Hypertension 03 FATHER Family history: Thyroid disorder 03 MOTHER Headache 03 MOTHER boys daughter Hearing loss daughter History of - anemia daughter History of drug abuse 03 FATHER 09 BROTHER 09 BROTHER Kidney disease 03 FATHER No Family History of: Abdominal aortic aneurysm Comerío's disease Aphasia Cancer Cancer of colon Cataract Congenital heart disease Cystic fibrosis Dementia Dysphagia Family history: Alzheimer's disease Family history: Breast disease Family history: Cardiovascular disease Family history: Coronary thrombosis Family history: Glaucoma Family history: Osteoporosis Heart disease Hereditary disease History of - disorder History of - respiratory disease Human immunodeficiency virus (HIV) seropositivity Hypercholesterolemia Infertile Malignant neoplasm of lung Myocardial infarction Parkinson's disease Prostate cancer Psychotic disorder Seizure disorder Stroke Tuberculosis Visual impairment Heart Disease (RODRÍGUEZ FALLON APRN) Physical Exam Vital Signs Vital Signs - First Documented 01/19/23 20:31 Temp 35.8 Pulse 66 Resp 16 B/P (MAP) 144/94 (111) Pulse Ox 97 O2 Delivery Room Air ([facility]) Height, Weight, BMI Height: 5'1.00" Weight: 164lbs. 0.0oz. 74.310774de; 30.00 BMI Method:Actual General Appearance: WD/WN, no apparent distress Mouth/Throat: pharynx normal, dental tenderness; No excessive drooling, No trismus, No uvula swelling, No voice changes; other (Erythema to left lower gums) Neck: non-tender, supple, normal inspection Cardiovascular: regular rate, rhythm, no edema, no gallop, no JVD, no murmur Respiratory: lungs clear, normal breath sounds, no respiratory distress, no accessory muscle use Neurologic/Psychiatric: alert, normal mood/affect Skin: normal color, warm/dry (RODRÍGUEZ FALLON APRN) Progress/Results/Core Measures Results/Orders Blood Pressure Mean: 111 Progress Progress Note : Time: 20:44 Progress Note Patient seen and evaluated, resting comfortably in recliner, no acute distress. Based on exam and symptoms, will give her a shot of Rocephin as suggested by her dentist. Discharge instructions and return precautions provided. (RODRÍGUEZ FALLON APRN) Departure Impression Primary Impression: Dental infection Disposition: 01 HOME, SELF-CARE Condition: Stable Departure-Patient Inst. Decision time for Depature: 20:59 (RODRÍGUEZ FALLON APRN) Referrals: [facility] [place] (PCP/Family) Primary Care Physician Patient Instructions: Dental Pain Add. Discharge Instructions: Continue taking your azithromycin. Follow-up with your dentist. Return for persistent fever, unable to tolerate liquids, difficulty breathing or swallowing, or any other new, concerning, or worsening symptoms. All discharge instructions reviewed with patient and/or family. Voiced understanding. ATTENDING PHYSICIAN NOTE: I WAS PHYSICALLY PRESENT ER PHYSICIAN, BUT I WAS NOT INVOLVED IN ANY DECISION MAKING OR ANY CARE OF THIS PATIENT, AND I AM NOT COLLABORATING PHYSICIAN. (AVELINO MARQUES DO) RODRÍGUEZ FALLON APRN Jan 19, 2023 20:44 AVELINO MARQUES DO Jan 21, 2023 06:14
[2023-01-19] MEDS ORDERED: cefTRIAXone 1,000 MG VIAL IM ONE (20:45)
[2023-01-19] MEDS ORDERED: LIDOCAINE 1% INJ 20 ML VIAL INJ ONE (20:45)
[2023-01-19 21:14] VITALS: BP 144/94
== END 2023-01-19 21:15 | disposition home or self-care (01) ==
LOC: EDUNIT# 20:25 → ER 20:27
DX: K04.7 Periapical abscess without sinus (principal); Z91.040 Latex allergy status; Z28.310 Unvaccinated for COVID-19
CPT/HCPCS: 99284